=== PATIENT | male | born 1955 | race Caucasian/White ===

== ENCOUNTER → 2018-08-04 14:22 | Outpatient (CLI) | payer MEDICARE, SELFPAY ==
--- NOTE | 2018-08-04 14:28 | XR_ITS ---
XR chest 2V HISTORY: ITS.REASON: RALES RT SIDE ORDERING PHYSICIAN: BRONWYN Hinds PATIENT AGE: 63 years COMPARISON: 03/18/2017 FINDINGS: The cardiomediastinal silhouette and pulmonary vascularity are within normal limits. There is COPD with prominence of the interstitium. Increased markings are present in the right lower lobe suggesting superimposed pneumonia. No effusions. No acute bony anomalies. 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 IMPRESSION: COPD/emphysema with right lower lobe pneumonia
== END ==
PROVIDERS: PCP Family Medicine; Visit Provider Physician Assistant
DX: R09.89 Other specified symptoms and signs involving the circulatory and respiratory systems (principal)
CPT/HCPCS: 71046

== ENCOUNTER 2018-12-12 10:14 | Inpatient (IN) | payer MEDICARE, SELFPAY ==
[2018-12-12] VITALS (9 sets, daily range): BP systolic 101–129; BP diastolic 67–76; PULSE 72–120; RESP 17–26; TEMP 36.7–37.1; O2SAT 91–96; BMI 24.3
--- NOTE | 2018-12-12 10:20 | XR_ITS ---
XR chest 2V HISTORY: ITS.REASON: copd exacerbation ORDERING PHYSICIAN: Lynda Pratt MD PATIENT AGE: 63 years COMPARISON: 08/04/2018 FINDINGS: COPD with diffuse interstitial lung disease once again noted. There is a large right pleural effusion with consolidation in the right lower lobe. Some of the effusion is loculated laterally. No lobar consolidation evident on the left. There is mild cardiomegaly without failure. No acute bony findings. IMPRESSION: COPD with pulmonary fibrotic change with large right effusion and consolidation within the right lower lobe cannot exclude underlying mass. Follow-up is recommended
--- NOTE | 2018-12-12 10:28 | CT_ITS ---
CT abdomen pelvis wo/w con CLINICAL INDICATION: Hematuria, right-sided abdominal pain ITS.REASON: hematuria ORDERING PHYSICIAN: Lynda Pratt MD PATIENT AGE: 63 years COMPARISON: None TECHNIQUE: Axial images obtained with sagittal and coronal reformats. All CT scans at the facility use one or more dose reduction, viz: automated exposure control, ma/kV adjustment per patient size (including targeted exams where dose is matched to indication, i.e. head), or iterative reconstruction technique. PROCEDURE: Oral Contrast: None IV Contrast: 75 mL Omnipaque 350. FINDINGS: There is a large right-sided pleural effusion with consolidation of the right lower lobe. Please see chest CT report for further description. Axial images are obtained without and with contrast. The liver, spleen, adrenal glands, pancreas, and gallbladder have an unremarkable appearance. No renal or ureteral calculi. No hydronephrosis. No renal mass. There is mild thickening of the urinary bladder along the posterior aspect of the left. No pelvic mass or abnormal fluid collection is evident. No evidence of appendicitis or diverticulitis. There is diverticulosis of the descending and sigmoid colon There is mild wedging involving L1 which appears old. Postsurgical changes are present at L3 and L4 with interpedicular screws. IMPRESSION: 1. No renal or ureteral calculi. 2. There is mild thickening of the urinary bladder wall on the left posteriorly. While this could be due to nondistention, underlying epithelial lesion is also considered such as focal inflammatory change or bladder cancer. 3. Diverticulosis of the colon but no evidence of diverticulitis
--- NOTE | 2018-12-12 10:37 | HMH.PHAVTE ---
[facility] Pharmacy VTE Monitoring - Patient Demographics Admission date: 12/12/18 Report Date: 12/12/18 Time: 10:37 Allergies/Adverse Reactions: Patient Allergies codeine Allergy (Unknown, Verified 12/12/18 10:37) UNKNOWN - Prophylaxis VTE Prophylaxis Ordered?: Yes Types of VTE Prophylaxis: TEDS Knee High Location of Applied Device: Bilateral Lower Extremeties - VTE Diagnosis Confirmed Treatment or plan recommended: Continue Current Treatment
[2018-12-12 11:23] LABS: Basophils # 0.1 K/mm3 (0-0.2); Basophils % 0.4 % (0.1-2.0); Eosinophils # 0.1 K/mm3 (0.0-0.4); Eosinophils % 0.8 % (0.1-12.0); Hematocrit 41.7 % (42.0-52.0); Lymphocytes # 2.2 K/mm3 (0.7-4.5); Lymphocytes % 16.9 % (10-50); Mean Corpuscular HGB Conc 33.5 g/dL (31.8-35.4); Mean Corpuscular Hemoglobin 32.3 pg (27.0-31.2); Mean Corpuscular Volume 96.5 fl (80-94); Mean Platelet Volume 7.7 fl (7.4-10.4); Monocytes # 0.8 K/mm3 (0.1-1.0); Monocytes % 6.3 % (1.7-9.3); Neutrophils # 9.9 K/mm3 (1.8-7.8); Neutrophils % 75.7 % (37.0-80.0); Platelet Count 368 K/mm3 (142-424); Red Blood Count 4.32 M/mm3 (4.60-6.20); Red Cell Distribution Width 12.6 % (11.5-17.5)
[2018-12-12 11:39] LABS: Lactic Acid 1.9 mmol/L (0.4-2.0)
[2018-12-12 11:42] LABS: Alanine Aminotransferase 24 U/L (12-78); Albumin/Globulin Ratio 0.7 (1.1-1.8); Alkaline Phosphatase 124 U/L (46-116); Anion Gap 15.7 mEq/L (5-15); Aspartate Amino Transferase 24 U/L (15-37); Bilirubin,Total 0.8 mg/dL (0.2-1.0); Blood Urea Nitrogen 14 mg/dL (7-18); Calcium 8.4 mg/dL (8.5-10.1); Carbon Dioxide 25 mmol/L (21.0-32.0); Chloride 100 mmol/L (98-107); Creatinine Clearance Estimated 88 mL/min (50-200); Creatinine,Serum 0.76 mg/dL (0.70-1.30); Estimated Glomerular Filt Rate 103 ml/min (>60); GFR (African American) 125 ML/MIN (>60); Globulin 4.1 gm/dl (1.3-3.2); Glucose 92 mg/dL (74-106); Potassium 4.7 mmoL/L (3.5-5.1); Sodium 136 mmol/L (136-145); Total Protein,Serum 7.1 gm/dL (6.4-8.2)
--- NOTE | 2018-12-12 13:17 | CT_ITS ---
CT chest w con HISTORY: Right-sided chest pain, abnormal chest x-ray ITS.REASON: ABNORMAL R LUNG,HX OF PNEUMONIA ORDERING PHYSICIAN: Lynda Pratt MD PATIENT AGE: 63 years COMPARISON: 03/18/2017 TECHNIQUE: Axial images obtained following the administration of 75 mL of Omnipaque 350 . Sagittal, and coronal reformatted images are also generated and reviewed. All CT scans at the facility use one or more dose reduction, viz: automated exposure control, ma/kV adjustment per patient size (including targeted exams where dose is matched to indication, i.e. head), or iterative reconstruction technique. FINDINGS: There is a large right pleural effusion mainly located in the lower hemithorax but also with a loculated component laterally. There is diffuse consolidation of the right lower lobe. Moderate compressive atelectatic changes are present involving the right upper lobe. Cannot exclude the possibility of an underlying lung lesion based on these findings. There are centrilobular emphysematous changes with mild pulmonary fibrosis. Patchy infiltrate is present in the left lower lobe at the lung base. No evidence of aortic aneurysm or dissection. No evidence of central pulmonary embolus. There are postsurgical changes of the left shoulder. Increased density is present along the medial aspect of the right lung possibly related to pleural effusion. Follow-up suggested to exclude other causes of pleural thickening. IMPRESSION: 1. Large right pleural effusion with consolidation of the right upper, right middle, right lower lobe. There is some aeration of the right upper lobe. Cannot to underlying parenchymal lung lesion due to the above findings. There is some increased density along the medial aspect of the right lung posteriorly due to loculated effusion. 2. Centrilobular emphysema with pulmonary fibrosis
--- NOTE | 2018-12-12 14:10 | HMH.HP ---
*Admission Date: 12/12/18 <Leslye Martino 12/12/18 14:25> *Chief complaint: Shortness of breath <Leslye Martino 12/12/18 14:25> *History of present illness: Patient's oxygen saturation in office was 88-89% on RA and cory upto 91% on 2 L NC. <Lynda Pratt 12/12/18 15:53> Mr. Townsend is a 63-year-old male who presented to the office of [facility] after not feeling well for the past 2 weeks. 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 He was previously treated with 2 rounds of antibiotics for pneumonia after which he states he was never completely well. With the persistence shortness of breath he decided he better see his physician. With exam and assessment in the office O2 sats were 90 to 91% on room air. He was started on nasal oxygen. He denies fever, sore throat, rhinorrhea, headache and body aches. He describes his chest is being sore. He says he has had some heart palpitations. 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 Due to his failure with outpatient treatment and his hypoxia he was admitted to [facility] for further evaluation and treatment <Leslye Martino 12/12/18 14:25> [facility] History I have reviewed the patient's past medical history: Yes <Lynda Pratt 12/12/18 15:53> Medical History: Reports:: Arrhythmia, Atrial Fibrillation, Chronic Obstructive Pulmonary Disease (COPD), Gastroesophageal Reflux Disease(GERD) Denies:: Cancer, Diabetes Mellitus Type 1, Diabetes Mellitus Type 2, MRSA <Leslye Martino 12/12/18 14:25> *Have you ever received a pneumonia vaccine?: No <GunnerLeslye - 12/12/18 14:25> *Have you received a flu vaccine this season?: No <GunnerLeslye - 12/12/18 14:25> Other Medical History: Reports: Arthritis, Sinus Problems <GunnerLeslye - 12/12/18 14:25> Comment:: Kidney stones <Leslye Martino 12/12/18 14:25> Laterality Cases: Right: Carpal Tunnel Release, Bilateral: Arthroscopy Knee, Total Knee Replacement <GunnerLeslye 12/12/18 14:25> Other Surgeries: Yes: Appendectomy <GunnerLeslye 12/12/18 14:25> Amputation: No <GunnerLeslye 12/12/18 14:25> Fractures: No <GunnerLeslye 12/12/18 14:25> Comment: L4-L5 fusion 1987; back surgery 2011; left wrist surgery 2005 <GunnerLeslye 12/12/18 14:25> - *Social History Smoking Status: Current every day smoker <GunnerLeslye 12/12/18 14:25> # Packs/Day (cigarettes): 2 <GunnerLeslye 12/12/18 14:25> Alcohol Intake: never <GunnerLeslye 12/12/18 14:25> *Occupational Status:: disabled <GunnerLeslye 12/12/18 14:25> Housing: house <GunnerLeslye 12/12/18 14:25> Household Members: none <Leslye Martino 12/12/18 14:25> *Travel in the last 8 weeks: None <GunnerLeslye 12/12/18 14:25> - Psychiatric History Expresses thoughts of harming self/others: None <GunnerLeslye 12/12/18 14:25> Suicide Plan Description: No Plan <GunnerLeslye 12/12/18 14:25> Family Hx:: Diabetes, Stroke <MartinoLeslye 12/12/18 14:25> Comment: Heart disease <MartinoLeslye 12/12/18 14:25> Review of Systems - Constitutional Denies fever(s), Denies headache(s) <Martino,Leslye 12/12/18 14:25> - ENT Denies dizziness, Denies ear pain, Denies sore throat <Martino,Leslye 12/12/18 14:25> - *Cardiovascular Reports chest pain, Reports shortness of breath, Reports irregular heart rhythm, Denies leg swelling <Martino,Leslye 12/12/18 14:25> - *Respiratory Reports cough, Reports shortness of breath, Reports pain with cough, Denies coughing up blood <Leslye Martino 12/12/18 14:32> - *Gastrointestinal Reports abdominal pain, Denies nausea, Denies vomiting <Leslye Martino 12/12/18 14:25> Comments: Abdominal pain radiating from the right flank <Leslye Martino 12/12/18 14:25> - *Genitourinary Reports painful urination, Reports blood in urine, Denies difficulty urinating <Lester Martino
--- NOTE | 2018-12-12 14:14 | P.HP_ITS ---
*Admission Date: 12/12/18 <Leslye Martino 12/12/18 14:25> *Chief complaint: Shortness of breath <Leslye Martino 12/12/18 14:25> *History of present illness: Patient's oxygen saturation in office was 88-89% on RA and cory upto 91% on 2 L NC. <Lynda Pratt 12/12/18 15:53> Mr. Townsend is a 63-year-old male who presented to the office of [facility] after not feeling well for the past 2 weeks. 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 He was previously treated with 2 rounds of antibiotics for pneumonia after which he states he was never completely well. With the persistence shortness of breath he decided he better see his physician. With exam and assessment in the office O2 sats were 90 to 91% on room air. He was started on nasal oxygen. He denies fever, sore throat, rhinorrhea, headache and body aches. He describes his chest is being sore. He says he has had some heart palpitations. 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 Due to his failure with outpatient treatment and his hypoxia he was admitted to [facility] for further evaluation and treatment <Leslye Martino 12/12/18 14:25> [facility] History I have reviewed the patient's past medical history: Yes <Lynda Pratt 12/12/18 15:53> Medical History: Reports:: Arrhythmia, Atrial Fibrillation, Chronic Obstructive Pulmonary Disease (COPD), Gastroesophageal Reflux Disease(GERD) Denies:: Cancer, Diabetes Mellitus Type 1, Diabetes Mellitus Type 2, MRSA <Leslye Martino 12/12/18 14:25> *Have you ever received a pneumonia vaccine?: No <GunnerLeslye - 12/12/18 14:25> *Have you received a flu vaccine this season?: No <GunnerLeslye - 12/12/18 14:25> Other Medical History: Reports: Arthritis, Sinus Problems <GunnerLeslye - 12/12/18 14:25> Comment:: Kidney stones <Lesyle Martino 12/12/18 14:25> Laterality Cases: Right: Carpal Tunnel Release, Bilateral: Arthroscopy Knee, Total Knee Replacement <GunnerLeslye 12/12/18 14:25> Other Surgeries: Yes: Appendectomy <GunnerLeslye 12/12/18 14:25> Amputation: No <GunnerLeslye 12/12/18 14:25> Fractures: No <GunnerLeslye 12/12/18 14:25> Comment: L4-L5 fusion 1987; back surgery 2011; left wrist surgery 2005 <GunnerLeslye 12/12/18 14:25> - *Social History Smoking Status: Current every day smoker <GunnerLeslye 12/12/18 14:25> # Packs/Day (cigarettes): 2 <GunnerLeslye 12/12/18 14:25> Alcohol Intake: never <GunnerLeslye 12/12/18 14:25> *Occupational Status:: disabled <GunnerLeslye 12/12/18 14:25> Housing: house <GunnerLeslye 12/12/18 14:25> Household Members: none <Leslye Martino 12/12/18 14:25> *Travel in the last 8 weeks: None <GunnerLeslye 12/12/18 14:25> - Psychiatric History Expresses thoughts of harming self/others: None <GunnerLeslye 12/12/18 14:25> Suicide Plan Description: No Plan <GunnerLeslye 12/12/18 14:25> Family Hx:: Diabetes, Stroke <MartinoLeslye 12/12/18 14:25> Comment: Heart disease <MartinoLeslye 12/12/18 14:25> Review of Systems - Constitutional Denies fever(s), Denies headache(s) <Martino,Leslye 12/12/18 14:25> - ENT Denies dizziness, Denies ear pain, Denies sore throat <Martino,Leslye 12/12/18 14:25> - *Cardiovascular Reports chest pain, Reports shortness of breath, Reports irregular heart rhythm, Denies leg swelling <Martino,Leslye 12/12/18 14:25> - *Respiratory Reports cough, Reports shortness of breath, Reports pain with cough, Denies coughing up blood <Leslye Martino - 12/12/18 14:32> -
--- NOTE | 2018-12-12 16:07 | PC.NURSE ---
cardizem drip increased to 10mg/hr to obtain hr below 100. heart rate currently running low 100s to 114 in an irregular rhythm( afib).
--- NOTE | 2018-12-12 18:42 | PC.NURSE ---
All care provided this shift by Milagros Collins RN was directly supervised by this video game script writer.
--- NOTE | 2018-12-12 19:12 | PC.NURSE ---
report given to marta
[2018-12-13] VITALS (16 sets, daily range): BP systolic 90–133; BP diastolic 46–73; PULSE 57–98; RESP 20–23; TEMP 36.6–36.8; O2SAT 90–99
--- NOTE | 2018-12-13 02:34 | PC.NURSE ---
He has been resting in be. Received PRN pain medication for back pain. He is NPO for pleurocentesis. 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 Reports his last BM on 12/12. He denies SOA. He continues on 2.5LPM n/c.
[2018-12-13 06:16] LABS: Hematocrit 36.9 % (42.0-52.0); Red Blood Count 3.85 M/mm3 (4.60-6.20); White Blood Count 13.8 K/mm3 (4.8-10.8)
[2018-12-13 06:17] LABS: Basophils % 0.1 % (0.1-2.0); Lymphocytes # 0.8 K/mm3 (0.7-4.5); Mean Corpuscular HGB Conc 33.4 g/dL (31.8-35.4); Mean Corpuscular Volume 95.9 fl (80-94); Mean Platelet Volume 7.9 fl (7.4-10.4); Monocytes # 0.5 K/mm3 (0.1-1.0); Monocytes % 3.7 % (1.7-9.3); Neutrophils # 12.3 K/mm3 (1.8-7.8); Neutrophils % 89.5 % (37.0-80.0); Platelet Count 299 K/mm3 (142-424); Red Cell Distribution Width 12.7 % (11.5-17.5)
[2018-12-13 06:18] LABS: Hemoglobin 12.3 g/dL (14.1-18.0); MANUAL DIFFERENTIAL MANUAL DIFFERENTIAL (MANUAL DIFF)
[2018-12-13 08:21] LABS: Lymphocytes % 5 % (10-50); Neutrophils % 95 % (42-76); Platelet Estimate Normal; RBC Morphology Normal; Total Cells Counted 100
--- NOTE | 2018-12-13 09:11 | HMH.ACPN2 ---
<Leslye Martino - Last Filed: 12/13/18 09:11> Internal Medicine - PN: Subj *Date: 12/13/18 *Time: 09:11 Interval history: Patient has normal sleep last night. Now has right flank more chest discomfort. He is anxious. Mouth is dry and he would like something to drink. He remains n.p.o. for procedure this morning. He remains on a Cardizem drip for atrial fibrillation. He feels his breathing is stable. Exam Vital signs and Labs for Last 24 Hours: Temp Pulse Resp BP Pulse Ox 97.8 F 74 20 100/55 L 96 12/13/18 08:00 12/13/18 08:12 12/13/18 08:12 12/13/18 08:00 12/13/18 08:12 Laboratory Results - last 24 hr 12/12/18 11:10: WBC 13.0 H, RBC 4.32 L, Hgb 14.0 L, Hct 41.7 L, MCV 96.5 H, MCH 32.3 H, MCHC 33.5, RDW 12.6, Plt Count 368, MPV 7.7, Neut % (Auto) 75.7, Lymph % (Auto) 16.9, [place] % (Auto) 6.3, Eos % (Auto) 0.8, Baso % (Auto) 0.4, Neut # (Auto) 9.9 H, Lymph # (Auto) 2.2, [place] # (Auto) 0.8, Eos # (Auto) 0.1, Baso # (Auto) 0.1 12/12/18 11:10: Sodium 136, Potassium 4.7, Chloride 100, Carbon Dioxide 25, Anion Gap 15.7 H, BUN 14, Creatinine 0.76, Estimated Creat Clear 88, Estimated GFR 103, Est GFR ( Amer) 125, Glucose 92, Calcium 8.4 L, Magnesium 2.0, Total Bilirubin 0.8, AST 24, ALT 24, Alkaline Phosphatase 124 H, Total Protein 7.1, Albumin 3.0 L, Globulin 4.1 H, Albumin/Globulin Ratio 0.7 L 12/12/18 11:10: Lactate 1.9 12/13/18 05:32: WBC 13.8 H, RBC 3.85 L, Hgb 12.3 L D, Hct 36.9 L, MCV 95.9 H, MCH 32.0 H, MCHC 33.4, RDW 12.7, Plt Count 299, MPV 7.9, Neut % (Auto) 89.5 H, Lymph % (Auto) 6.0 L, [place] % (Auto) 3.7, Eos % (Auto) 0.0 L, Baso % (Auto) 0.1, Neut # (Auto) 12.3 H, Lymph # (Auto) 0.8, [place] # (Auto) 0.5, Eos # (Auto) 0.0, Baso # (Auto) 0.0, Total Counted 100, Neutrophils % (Manual) 95 H, Lymphocytes % (Manual) 5 L, Platelet Estimate Normal, RBC Morphology Normal I & O for Last 24 hours: Intake & Output 12/10/18 12/11/18 12/12/18 12/13/18 11:59 11:59 11:59 11:59 Intake Total 3234 / 3234 Output Total 350 / 350 Balance 2884 / 2884 Weight 184 lb Microbiology Reports for the Last 24 Hours: Microbiology 12/12/18 11:20 Sputum - Expectorated Sputum Gram Stain - Final 12/12/18 11:20 Sputum - Expectorated Sputum Sputum Culture - Preliminary Radiology Reports for the Last 24 Hours: Chest x-ray 12/12/2018 IMPRESSION: COPD with pulmonary fibrotic change with large right effusion and consolidation within the right lower lobe cannot exclude underlying mass. Follow-up is recommended CT abdomen pelvis 12/12/2018 IMPRESSION: 1. No renal or ureteral calculi. 2. There is mild thickening of the urinary bladder wall on the left posteriorly. While this could be due to nondistention, underlying epithelial lesion is also considered such as focal inflammatory change or bladder cancer. 3. Diverticulosis of the colon but no evidence of diverticulitis CT of chest 12/12/2018 IMPRESSION: 1. Large right pleural effusion with consolidation of the right upper, right middle, right lower lobe. There is some aeration of the right upper lobe. Cannot to underlying parenchymal lung lesion due to the above findings. There is some increased density along the medial aspect of the right lung posteriorly due to loculated effusion. 2. Centrilobular emphysema with pulmonary fibrosis - Constitutional no acute distress Comments: Seems anxious - *Routine Respiratory Exam Comments: Diminished breath sounds on the right - *Routine Cardiovascular Exam Present: irregularly irregular Comments: Monitor showing atrial fibrillation with a controlled ventricular response - *Routine Abdominal Exam Present: soft, normoactive bowel sounds. Absent: tenderness - *Routine Extremities Exam Absent: edema - *Routine Neurological Exam Present: alert, oriented X3 Assessment and Plan (1) Acute respiratory failure Current visit: Yes Status: Acute Category: Medical Code(s): J96.00 - Acute respi
--- NOTE | 2018-12-13 09:14 | P.PN_ITS ---
<Leslye Martino - Last Filed: 12/13/18 09:11> Internal Medicine - PN: Subj *Date: 12/13/18 *Time: 09:11 Interval history: Patient has normal sleep last night. Now has right flank more chest discomfort. He is anxious. Mouth is dry and he would like something to drink. He remains n.p.o. for procedure this morning. He remains on a Cardizem drip for atrial fibrillation. He feels his breathing is stable. Exam Vital signs and Labs for Last 24 Hours: Temp Pulse Resp BP Pulse Ox 97.8 F 74 20 100/55 L 96 12/13/18 08:00 12/13/18 08:12 12/13/18 08:12 12/13/18 08:00 12/13/18 08:12 Laboratory Results - last 24 hr 12/12/18 11:10: WBC 13.0 H, RBC 4.32 L, Hgb 14.0 L, Hct 41.7 L, MCV 96.5 H, MCH 32.3 H, MCHC 33.5, RDW 12.6, Plt Count 368, MPV 7.7, Neut % (Auto) 75.7, Lymph % (Auto) 16.9, [place] % (Auto) 6.3, Eos % (Auto) 0.8, Baso % (Auto) 0.4, Neut # (Auto) 9.9 H, Lymph # (Auto) 2.2, [place] # (Auto) 0.8, Eos # (Auto) 0.1, Baso # (Auto) 0.1 12/12/18 11:10: Sodium 136, Potassium 4.7, Chloride 100, Carbon Dioxide 25, Anion Gap 15.7 H, BUN 14, Creatinine 0.76, Estimated Creat Clear 88, Estimated GFR 103, Est GFR ( Amer) 125, Glucose 92, Calcium 8.4 L, Magnesium 2.0, Total Bilirubin 0.8, AST 24, ALT 24, Alkaline Phosphatase 124 H, Total Protein 7.1, Albumin 3.0 L, Globulin 4.1 H, Albumin/Globulin Ratio 0.7 L 12/12/18 11:10: Lactate 1.9 12/13/18 05:32: WBC 13.8 H, RBC 3.85 L, Hgb 12.3 L D, Hct 36.9 L, MCV 95.9 H, MCH 32.0 H, MCHC 33.4, RDW 12.7, Plt Count 299, MPV 7.9, Neut % (Auto) 89.5 H, Lymph % (Auto) 6.0 L, [place] % (Auto) 3.7, Eos % (Auto) 0.0 L, Baso % (Auto) 0.1, Neut # (Auto) 12.3 H, Lymph # (Auto) 0.8, [place] # (Auto) 0.5, Eos # (Auto) 0.0, Baso # (Auto) 0.0, Total Counted 100, Neutrophils % (Manual) 95 H, Lymphocytes % (Manual) 5 L, Platelet Estimate Normal, RBC Morphology Normal I & O for Last 24 hours: Intake & Output 12/10/18 12/11/18 12/12/18 12/13/18 11:59 11:59 11:59 11:59 Intake Total 3234 / 3234 Output Total 350 / 350 Balance 2884 / 2884 Weight 184 lb Microbiology Reports for the Last 24 Hours: Microbiology 12/12/18 11:20 Sputum - Expectorated Sputum Gram Stain - Final 12/12/18 11:20 Sputum - Expectorated Sputum Sputum Culture - Preliminary Radiology Reports for the Last 24 Hours: Chest x-ray 12/12/2018 IMPRESSION: COPD with pulmonary fibrotic change with large right effusion and consolidation within the right lower lobe cannot exclude underlying mass. Follow-up is recommended CT abdomen pelvis 12/12/2018 IMPRESSION: 1. No renal or ureteral calculi. 2. There is mild thickening of the urinary bladder wall on the left posteriorly. While this could be due to nondistention, underlying epithelial lesion is also considered such as focal inflammatory change or bladder cancer. 3. Diverticulosis of the colon but no evidence of diverticulitis CT of chest 12/12/2018 IMPRESSION: 1. Large right pleural effusion with consolidation of the right upper, right middle, right lower lobe. There is some aeration of the right upper lobe. Cannot to underlying parenchymal lung lesion due to the above findings. There is some increased density along the medial aspect of the right lung posteriorly due to loculated effusion. 2. Centrilobular emphysema with pulmonary fibrosis - Constitutional no acute distress Comments: Seems anxious - *Routine Re
--- NOTE | 2018-12-13 09:15 | PC.NURSE ---
Pt transferred off unit via wheelchair to radiology for procedure.
--- NOTE | 2018-12-13 10:00 | US_ITS ---
US thoracentesis HISTORY: Right pleural effusion, trouble breathing ITS.REASON: right pleural effusion ORDERING PHYSICIAN: Lynda Pratt MD PATIENT AGE: 63 years Comparison: None PROCEDURE: Following obtaining informed consent and after appropriate Time out, under aseptic conditions and local anesthesia with 1% buffered lidocaine using sonographic guidance a 4 Czech one-step catheter was inserted into the right posterior axillary line in the lower chest. Approximately 3500 cc of blood-tinged fluid was drained. The patient tolerated the procedure well and left the radiology suite in stable condition. Post procedure radiograph showed no evidence of pneumothorax IMPRESSION: Successful sonographic guided thoracentesis without complication
[2018-12-13 10:16] LABS: Appearance,Body Fld. Cloudy; Source, Body Fld. Pleural Fluid; Volume,Body Fld. 59 mL
--- NOTE | 2018-12-13 10:29 | XR_ITS ---
XR chest 2V HISTORY: Shortness of breath, follow-up thoracentesis ITS.REASON: S/P follow-up thoracentesis ORDERING PHYSICIAN: Lynda Pratt MD PATIENT AGE: 63 years COMPARISON: 12/12/2018 FINDINGS: Status post right-sided thoracentesis. There is been marked interval decrease in size of the right-sided pleural effusion with a small residual effusion persisting. Consolidation is present in the right lower lobe consistent with pneumonia. There is mild thickening of the major fissure and minor fissure on the right. There is COPD with chronic interstitial changes. There is no evidence of pneumothorax. IMPRESSION: 1. No evidence of pneumothorax. 2. Decrease in size right pleural effusion with right lower lobe pneumonia and diffuse interstitial lung disease
[2018-12-13 12:12] LABS: Mononuclear WBCs,Body Fluid 98 %; Polynuclear WBC,Body Fluid 2 %; RBC,Body Fluid 21 cells/uL (< 10 X 10^3); TNC,Body Fluid 1467 cells/uL (< 1000)
--- NOTE | 2018-12-13 13:00 | XR_ITS ---
XR chest 2V HISTORY: Follow-up thoracentesis ORDERING PHYSICIAN: Lynda Pratt MD PATIENT AGE: 63 years COMPARISON: None FINDINGS: There is cardiomegaly with pulmonary venous congestion suggesting CHF which has developed since the prior study of the same day. Some of this could be related to the decreased inspiratory effort and motion. No evidence of pneumothorax. There is consolidation in the right lower lobe and thickening of the major and minor fissure on the right which also appears more prominent but may be due to motion artifact. IMPRESSION: 1. No evidence of pneumothorax. 2. CHF with interstitial lung disease. 3. Right lower lobe pneumonia with small effusion probably unchanged given the difference in technique
--- NOTE | 2018-12-13 13:04 | HMH.CONS ---
*Admission Date: 12/12/18 *Chief complaint: I got pneumonia. *History of present illness: Mr. Townsend is a 63-year-old man who has a past history of atrial fibrillation and multiple surgical interventions, generally for orthopedic problems who had been in his usual state of health until a couple of months ago when he began to feel bad. He characterizes this is feeling weak and somewhat breathless, having feverish feelings and chills and sweats and coughing more than usual. He began to expectorate discolored sputum and was evaluated in the office where pneumonia was diagnosed. He was given levofloxacin and initially without much benefit and then a azithromycin and then I began to feel a little better. About a week ago, symptoms recurred and were much worse. He had feverish feelings, weakness, increased cough and much more breathlessness on exertion. He delayed coming to the office until last Wednesday and was ultimately admitted here with pneumonia and a large right pleural effusion. He underwent about a 4 L thoracentesis this morning and feels much better. Mr. Townsend began smoking at the age of 13 and smokes between 1 and 1-1/2 packages of cigarettes a day. He has a daily cough which is generally not productive and has not experienced shortness of breath on exertion. He has never had pneumonia and has never been diagnosed with any chronic lung disease. With this illness, he has had no significant pleuritic chest pain and no hemoptysis. His appetite fell off dramatically last week but he does not believe he is lost any weight over the last couple of months. [facility] History Medical History: Reports:: Arrhythmia, Atrial Fibrillation, Chronic Obstructive Pulmonary Disease (COPD), Gastroesophageal Reflux Disease(GERD) Denies:: Cancer, Diabetes Mellitus Type 1, Diabetes Mellitus Type 2, MRSA *Have you ever received a pneumonia vaccine?: No *Have you received a flu vaccine this season?: No Other Medical History: Reports: Arthritis, Sinus Problems Laterality Cases: Right: Carpal Tunnel Release, Bilateral: Arthroscopy Knee, Total Knee Replacement Other Surgeries: Yes: Appendectomy Amputation: No Fractures: No - *Social History Smoking Status: Current every day smoker # Packs/Day (cigarettes): 2 Alcohol Intake: never *Occupational Status:: disabled Housing: house Household Members: none *Travel in the last 8 weeks: None Comment: 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 She is in good health. He has 2 grown children and 2 healthy grandchildren. 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 He has no other hobbies. - Psychiatric History Expresses thoughts of harming self/others: None Suicide Plan Description: No Plan Family Hx:: Diabetes, Stroke Comment: His brother had chronic obstructive pulmonary disease. There is no family history of cancer. Review of Systems - Review of Systems Review of systems:: pertinent systems reviewed and negative unless documented below Mr. Townsend wears bifocals and has fairly good vision. He has upper dentures. He has no history of ischemic heart disease and atrial fibrillation appears to be under good control. He has no gastrointestinal complaints except for significant GERD which occurs pretty much every day. He drinks at least one pot of coffee and 2-3 Pepsi's daily and generally goes right to bed after eating dinner. He has had no significant change in his appetite or weight over the last couple of years except for this illness. He has nocturia x2. He has diffuse joint pains, especially of the feet and hands and some low back pain. He has a history of psoriasis but that has not been a problem for a long time. The rest of a 14 point review of systems is negative. - *Neurologic Denies abnormal walking, Denies abnormal speech, Denies behavioral castillo
--- NOTE | 2018-12-13 13:07 | P.CONS_ITS ---
*Admission Date: 12/12/18 *Chief complaint: I got pneumonia. *History of present illness: Mr. Townsend is a 63-year-old man who has a past history of atrial fibrillation and multiple surgical interventions, generally for orthopedic problems who had been in his usual state of health until a couple of months ago when he began to feel bad. He characterizes this is feeling weak and somewhat breathless, having feverish feelings and chills and sweats and coughing more than usual. He began to expectorate discolored sputum and was evaluated in the office where pneumonia was diagnosed. He was given levofloxacin and initially without much benefit and then a azithromycin and then I began to feel a little better. About a week ago, symptoms recurred and were much worse. He had feverish feelings, weakness, increased cough and much more breathlessness on exertion. He delayed coming to the office until last Wednesday and was ultimately admitted here with pneumonia and a large right pleural effusion. He underwent about a 4 L thoracentesis this morning and feels much better. Mr. Townsend began smoking at the age of 13 and smokes between 1 and 1-1/2 packages of cigarettes a day. He has a daily cough which is generally not productive and has not experienced shortness of breath on exertion. He has never had pneumonia and has never been diagnosed with any chronic lung disease. With this illness, he has had no significant pleuritic chest pain and no hemoptysis. His appetite fell off dramatically last week but he does not believe he is lost any weight over the last couple of months. [facility] History Medical History: Reports:: Arrhythmia, Atrial Fibrillation, Chronic Obstructive Pulmonary Disease (COPD), Gastroesophageal Reflux Disease(GERD) Denies:: Cancer, Diabetes Mellitus Type 1, Diabetes Mellitus Type 2, MRSA *Have you ever received a pneumonia vaccine?: No *Have you received a flu vaccine this season?: No Other Medical History: Reports: Arthritis, Sinus Problems Laterality Cases: Right: Carpal Tunnel Release, Bilateral: Arthroscopy Knee, Total Knee Replacement Other Surgeries: Yes: Appendectomy Amputation: No Fractures: No - *Social History Smoking Status: Current every day smoker # Packs/Day (cigarettes): 2 Alcohol Intake: never *Occupational Status:: disabled Housing: house Household Members: none *Travel in the last 8 weeks: None Comment: 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 She is in good health. He has 2 grown children and 2 healthy grandchildren. 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 He has no other hobbies. - Psychiatric History Expresses thoughts of harming self/others: None Suicide Plan Description: No Plan Family Hx:: Diabetes, Stroke Comment: His brother had chronic obstructive pulmonary disease. There is no family history of cancer. Review of Systems - Review of Systems Review of systems:: pertinent systems reviewed and negative unless documented below Mr. Townsend wears bifocals and has fairly good vision. He has upper dentures. He has no history of ischemic heart disease and atrial fibrillation appears to be under good control. He has no gastrointestinal complaints except for significant GERD which occurs pretty much every day. He drinks at least one pot of coffee and 2-3 Pepsi's daily and generally goes right to bed after eating dinner. He has had no significant change in his appetite or weight over the last couple of years except for this illness. He has nocturia x2. He has diffuse joint pains, especiall
--- NOTE | 2018-12-13 17:04 | PC.NURSE ---
Spoke with Dr Henriquez on floor regarding need for negative pressure room. Dr Henriquez stated that would be a good idea and order a sputum for AFB. Pt to be transferred to a negative pressure room.
--- NOTE | 2018-12-13 17:22 | PC.NURSE ---
Pt instructed on airborne precautions. Pt verbalizes understanding.
--- NOTE | 2018-12-13 19:21 | HMH.GSCON ---
*Admission Date: 12/12/18 *History of present illness: Mr. Townsend is a 63-year-old man who has a past history of atrial fibrillation and multiple surgical interventions, generally for orthopedic problems who had been in his usual state of health until a couple of months ago when he began to feel bad. He characterizes this is feeling weak and somewhat breathless, having feverish feelings and chills and sweats and coughing more than usual. He began to expectorate discolored sputum and was evaluated in the office where pneumonia was diagnosed. He was given levofloxacin and initially without much benefit and then a azithromycin and then I began to feel a little better. About a week ago, symptoms recurred and were much worse. He had feverish feelings, weakness, increased cough and much more breathlessness on exertion. He delayed coming to the office until last Wednesday and was ultimately admitted here with pneumonia and a large right pleural effusion. He underwent about a 4 L thoracentesis this morning and feels much better. Mr. Townsend began smoking at the age of 13 and smokes between 1 and 1-1/2 packages of cigarettes a day. He has a daily cough which is generally not productive and has not experienced shortness of breath on exertion. He has never had pneumonia and has never been diagnosed with any chronic lung disease. With this illness, he has had no significant pleuritic chest pain and no hemoptysis. His appetite fell off dramatically last week but he does not believe he is lost any weight over the last couple of months. I have been asked to see this gentleman context of the above discussion. On his CT scan he had thickened area of the left lateral bladder wall. No gross tumor was noted. He does admit having some episodes of gross hematuria over the last several months. Had thoracentesis earlier today and the results are pending. I suggest he follow-up with me in 1 week and we will address his bladder and clear arrange for cystoscopy with possible bladder biopsy. Review of Systems - *Neurologic Denies abnormal walking, Denies abnormal speech, Denies behavioral changes, Denies dizziness, Denies frequent falls, Denies headache(s) [facility] History Medical History: Reports:: Arrhythmia, Atrial Fibrillation, Chronic Obstructive Pulmonary Disease (COPD), Gastroesophageal Reflux Disease(GERD) Denies:: Cancer, Diabetes Mellitus Type 1, Diabetes Mellitus Type 2, MRSA *Have you ever received a pneumonia vaccine?: No *Have you received a flu vaccine this season?: No Other Medical History: Reports: Arthritis, Sinus Problems Laterality Cases: Right: Carpal Tunnel Release, Bilateral: Arthroscopy Knee, Total Knee Replacement Other Surgeries: Yes: Appendectomy Amputation: No Fractures: No - *Social History Smoking Status: Current every day smoker # Packs/Day (cigarettes): 2 Alcohol Intake: never *Occupational Status:: disabled Housing: house Household Members: none *Travel in the last 8 weeks: None - Psychiatric History Expresses thoughts of harming self/others: None Suicide Plan Description: No Plan Family Hx:: Diabetes, Stroke Meds Home Medications Medication Instructions Recorded Confirmed Type Metoprolol Succinate [Toprol XL 25 mg PO DAILY 12/12/18 12/12/18 History 25mg tablet] Allergies Allergy/AdvReac Type Severity Reaction Status Date / Time codeine Allergy Unknown UNKNOWN Verified 12/12/18 10:37 Exam Vital signs and Labs for Last 24 Hours: Temp Pulse Resp BP Pulse Ox 98.3 F 91 H 23 121/65 91 L 12/13/18 16:00 12/13/18 18:35 12/13/18 16:00 12/13/18 16:00 12/13/18 18:35 Laboratory Results - last 24 hr 12/13/18 05:32: WBC 13.8 H, RBC 3.85 L, Hgb 12.3 L D, Hct 36.9 L, MCV 95.9 H, MCH 32.0 H, MCHC 33.4, RDW 12.7, Plt Count 299, MPV 7.9, Neut % (Auto) 89.5 H, Lymph % (Auto) 6.0 L, [place] % (Auto) 3.7, Eos % (Auto) 0.0 L, Baso % (Auto) 0.1, Neut # (Auto) 12.3 H, Lymph # (Auto) 0.8, [place] #
[2018-12-14] VITALS (12 sets, daily range): BP systolic 108–121; BP diastolic 69–80; PULSE 70–91; RESP 16–20; TEMP 36.6–36.9; O2SAT 90–97; BMI 23.9
--- NOTE | 2018-12-14 04:36 | PC.NURSE ---
PT RESTED WELL. CONT. IN DROPLET PRECAUTION. PT AMBULATES INDEPENDENTLY IN ROOM TO BATHROOM, TOLERATES WELL. PT URINE IS DARK, AND CLEAR IN COLOR. PT HAS BEEN AFEBRILE. C/O RIGHT LOWER BACK PAIN X2 THIS SHIFT, PRN MEDICATION ADMIN. VSS. WILL CONT. TO MONITOR.
[2018-12-14 06:54] LABS: Hematocrit 38.2 % (42.0-52.0); Hemoglobin 12.2 g/dL (14.1-18.0); Lymphocytes # 1.1 K/mm3 (0.7-4.5); Lymphocytes % 5.3 % (10-50); Mean Corpuscular Hemoglobin 31.6 pg (27.0-31.2); Mean Corpuscular Volume 98.7 fl (80-94); Mean Platelet Volume 7.8 fl (7.4-10.4); Monocytes # 0.9 K/mm3 (0.1-1.0); Monocytes % 4.6 % (1.7-9.3); Neutrophils # 18.1 K/mm3 (1.8-7.8); Neutrophils % 89.9 % (37.0-80.0); Platelet Count 321 K/mm3 (142-424); Red Blood Count 3.87 M/mm3 (4.60-6.20); Red Cell Distribution Width 12.9 % (11.5-17.5); White Blood Count 20.1 K/mm3 (4.8-10.8)
[2018-12-14 07:00] LABS: MANUAL DIFFERENTIAL MANUAL DIFFERENTIAL (MANUAL DIFF)
[2018-12-14 07:13] LABS: Lactate Dehydrogenase 201 U/L (82-234); Total Protein,Serum 6.4 gm/dL (6.4-8.2)
[2018-12-14 08:09] LABS: Lymphocytes % 6 % (10-50); Monocytes % 4 % (2-9); Neutrophils % 86 % (42-76); Platelet Estimate Normal; Total Cells Counted 100
--- NOTE | 2018-12-14 08:30 | HMH.ACPN2 ---
<Leslye Martino - Last Filed: 12/14/18 08:45> Internal Medicine - PN: Subj *Date: 12/14/18 *Time: 08:45 Interval history: Patient states he feels like a new man. Wondering when he can go home. He states he has no right flank pain now. His back has been bothering him. He admits to several back surgeries. He states he is used to being up and very active. He denies any chest pain and feels his breathing is better although he remains on oxygen at 2.5 L/min.. He is eating better as well. He has been out of bed without difficulty. Patient states his urine has been clear. Urology and pulmonary consults note reviewed and appreciated Exam Vital signs and Labs for Last 24 Hours: Temp Pulse Resp BP Pulse Ox 97.9 F 87 20 121/72 94 L 12/14/18 03:54 12/14/18 06:21 12/14/18 03:54 12/14/18 03:54 12/14/18 06:21 Laboratory Results - last 24 hr 12/13/18 09:50: Fluid Source Pleural fluid, Fluid Volume 59, Fluid Appearance Cloudy, Fluid RBC (Auto) 21, Fld Tot Nucleated Cell 1467, Fld Polynuclear WBCs % 2, Fld Mononuclear WBCs % 98 12/14/18 06:30: WBC 20.1 H* D, RBC 3.87 L, Hgb 12.2 L, Hct 38.2 L, MCV 98.7 H, MCH 31.6 H, MCHC 32.0, RDW 12.9, Plt Count 321, MPV 7.8, Neut % (Auto) 89.9 H, Lymph % (Auto) 5.3 L, [place] % (Auto) 4.6, Eos % (Auto) 0.0 L, Baso % (Auto) 0.0 L, Neut # (Auto) 18.1 H, Lymph # (Auto) 1.1, [place] # (Auto) 0.9, Eos # (Auto) 0.0, Baso # (Auto) 0.0, Total Counted 100, Neutrophils % (Manual) 86 H, Band Neutrophils % 4.0, Lymphocytes % (Manual) 6 L, Monocytes % (Manual) 4, Platelet Estimate Normal 12/14/18 06:30: Lactate Dehydrogenase 201, Total Protein 6.4 I & O for Last 24 hours: Intake & Output 12/11/18 12/12/18 12/13/18 12/14/18 11:59 11:59 11:59 11:59 Intake Total 3234 / 3234 780 / 780 Output Total 350 / 350 650 / 650 Balance 2884 / 2884 130 / 130 Weight 184 lb 180 lb 11.2 oz Microbiology Reports for the Last 24 Hours: Microbiology 12/12/18 11:20 Sputum - Expectorated Sputum Gram Stain - Final 12/12/18 11:20 Sputum - Expectorated Sputum Sputum Culture - Final Normal Respiratory Joanne 12/13/18 09:50 Pleural Fluid - Pleura,Rt Lung Gram Stain - Final Radiology Reports for the Last 24 Hours: Repeat chest x-ray 12/13/2018 IMPRESSION: 1. No evidence of pneumothorax. 2. CHF with interstitial lung disease. 3. Right lower lobe pneumonia with small effusion probably unchanged given the difference in technique - Constitutional no acute distress Comments: Appears comfortable - *Routine Respiratory Exam Comments: Much improved breath sounds on the right with crackles throughout. - *Routine Cardiovascular Exam Comments: Irregular rhythm - *Routine Abdominal Exam Present: soft, normoactive bowel sounds. Absent: tenderness - *Routine Extremities Exam Absent: edema - *Routine Neurological Exam Present: alert, oriented X3 Assessment and Plan (1) Acute respiratory failure Current visit: Yes Status: Acute Category: Medical Code(s): J96.00 - Acute respiratory failure, unspecified whether with hypoxia or hypercapnia (2) Pneumonia Current visit: Yes Status: Acute Category: Medical Code(s): J18.9 - Pneumonia, unspecified organism (3) Hypoxia Current visit: Yes Status: Acute Category: Medical Code(s): R09.02 - Hypoxemia (4) Atrial fibrillation Current visit: Yes Status: Acute Category: Medical Code(s): I48.91 - Unspecified atrial fibrillation (5) Right flank pain Current visit: Yes Status: Acute Category: Medical Code(s): R10.9 - Unspecified abdominal pain (6) Tobacco use disorder Current visit: Yes Status: Chronic Category: Medical Code(s): F17.200 - Nicotine dependence, unspecified, uncomplicated (7) Pleural effusion, right Current visit: Yes Status: Acute Category: Medical Code(s): J90 - Pleural effusion, not elsewhere classified (8) Hematuria Current visit:
--- NOTE | 2018-12-14 08:33 | P.PN_ITS ---
<Leslye Martino - Last Filed: 12/14/18 08:45> Internal Medicine - PN: Subj *Date: 12/14/18 *Time: 08:45 Interval history: Patient states he feels like a new man. Wondering when he can go home. He states he has no right flank pain now. His back has been bothering him. He admits to several back surgeries. He states he is used to being up and very active. He denies any chest pain and feels his breathing is better although he remains on oxygen at 2.5 L/min.. He is eating better as well. He has been out of bed without difficulty. Patient states his urine has been clear. Urology and pulmonary consults note reviewed and appreciated Exam Vital signs and Labs for Last 24 Hours: Temp Pulse Resp BP Pulse Ox 97.9 F 87 20 121/72 94 L 12/14/18 03:54 12/14/18 06:21 12/14/18 03:54 12/14/18 03:54 12/14/18 06:21 Laboratory Results - last 24 hr 12/13/18 09:50: Fluid Source Pleural fluid, Fluid Volume 59, Fluid Appearance Cloudy, Fluid RBC (Auto) 21, Fld Tot Nucleated Cell 1467, Fld Polynuclear WBCs % 2, Fld Mononuclear WBCs % 98 12/14/18 06:30: WBC 20.1 H* D, RBC 3.87 L, Hgb 12.2 L, Hct 38.2 L, MCV 98.7 H, MCH 31.6 H, MCHC 32.0, RDW 12.9, Plt Count 321, MPV 7.8, Neut % (Auto) 89.9 H, Lymph % (Auto) 5.3 L, [place] % (Auto) 4.6, Eos % (Auto) 0.0 L, Baso % (Auto) 0.0 L , Neut # (Auto) 18.1 H, Lymph # (Auto) 1.1, [place] # (Auto) 0.9, Eos # (Auto) 0.0, Baso # (Auto) 0.0, Total Counted 100, Neutrophils % (Manual) 86 H, Band Neutrophils % 4.0, Lymphocytes % (Manual) 6 L, Monocytes % (Manual) 4, Platelet Estimate Normal 12/14/18 06:30: Lactate Dehydrogenase 201, Total Protein 6.4 I & O for Last 24 hours: Intake & Output 12/11/18 12/12/18 12/13/18 12/14/18 11:59 11:59 11:59 11:59 Intake Total 3234 / 3234 780 / 780 Output Total 350 / 350 650 / 650 Balance 2884 / 2884 130 / 130 Weight 184 lb 180 lb 11.2 oz Microbiology Reports for the Last 24 Hours: Microbiology 12/12/18 11:20 Sputum - Expectorated Sputum Gram Stain - Final 12/12/18 11:20 Sputum - Expectorated Sputum Sputum Culture - Final Normal Respiratory Joanne 12/13/18 09:50 Pleural Fluid - Pleura,Rt Lung Gram Stain - Final Radiology Reports for the Last 24 Hours: Repeat chest x-ray 12/13/2018 IMPRESSION: 1. No evidence of pneumothorax. 2. CHF with interstitial lung disease. 3. Right lower lobe pneumonia with small effusion probably unchanged given the difference in technique - Constitutional no acute distress Comments: Appears comfortable - *Routine Respiratory Exam Comments: Much improved breath sounds on the right with crackles throughout. - *Routine Cardiovascular Exam Comments: Irregular rhythm - *Routine Abdominal Exam Present: soft, normoactive bowel sounds. Absent: tenderness - *Routine Extremities Exam Absent: edema - *Routine Neurological Exam Present: alert, oriented X3 Assessment and Plan (1) Acute respiratory failure Current visit: Yes Status: Acute Category: Medical Code(s): J96.00 - Acute respiratory failure, unspecified whether with hypoxia or hypercapnia (2) Pneumonia Current visit: Yes Status: Acute Category: Medical Code(s): J18.9 - Pneumonia, unspecified organism (3) Hypoxia Current visit: Yes Status: Acute Category: Medical Code(s): R09.02
--- NOTE | 2018-12-14 10:06 | PC.NURSE ---
Patient currently on room air and walking around his room, o2 saturation obtained 91% obtained while walking. will continue to monitor.
--- NOTE | 2018-12-14 10:08 | CA_ITS ---
PROCEDURE: 2-D M-mode and color Doppler study INDICATIONS FOR THE TEST: Chest pain COPDX Heart Murmur Tobacco SmokingX Palpitations Fatigue Syncope Edema Hypertension Diabetes Mellitus Rheumatic Fever SOBXDOEXObesity Hyperlipidemia Family History HD Additional History CHRONIC AF,CHF TDS SECONDARY RESPIRATIONS PATIENT INFORMATION HEIGHT: 72 WEIGHT:180 GENDER: Male B/P:140/80 2-D/M-MODE INTERPRETATION: 2-D MEASUREMENTS OBSERVED VALUES IN CMS Right Ventricular Dimension (RVDd) 2.2 Interventricular Septum (Thickness)(IVsd) .8 Left Ventricular Internal Dimensions(LVIDd) 5.8 Left Ventricular Posterior Wall (Thickness)(LVPWd) 1.2 Aortic Root 3.2 Aortic Cusp Separation Left Atrial Dimensions (LAD) 3.8 2D 1. Left atrium is mildly enlarged, left ventricle is normal size, there is no concentric left ventricular hypertrophy, visually estimated ejection fraction 55% with no regional wall motion abnormality, there is abnormal septal motion. 2. The right atrium is mildly enlarged, right ventricle is normal size and contractility. 3. The aortic valve is minimally thickened and fibrosed. 4. The mitral and tricuspid valve leaflets are minimally thickened. 5. The pulmonic valve is poorly visualized. 6. No significant pericardial effusion noted. DOPPLER INTERROGATION: Doppler interrogation of the aortic, mitral and tricuspid valvular presence of mild mitral and tricuspid regurgitation, tricuspid regurgitation jet velocity is inadequate for calculation of the right ventricular systolic pressure, diastolic parameters are inconclusive. Inferior vena cava is normal size with normal inspiratory collapse. CONCLUSION: 1. Mildly enlarged left atrium, normal left ventricular size, visually estimated ejection fraction 55% with no regional wall motion abnormality, diastolic parameters are inconclusive. 2. Mildly enlarged right atrium, right ventricle is normal size and contractility. 3. Mild mitral and tricuspid regurgitation, tricuspid regurgitation jet velocity is inadequate for calculation of the right ventricular systolic pressure, inferior vena cava is normal size with normal inspiratory collapse. 4. No significant pericardial effusion noted.
--- NOTE | 2018-12-14 13:39 | HMH.PHAINT ---
DISCHARGE COUNSELING COMPLETED. PT COUNSELED TO STOP TAKING TOPROL XL. START TAKING DILTIAZEM, CEPHALEXIN, METHYLPREDNISOLONE, NICOTINE PATCHES. PT AND DAUGHTER VERBALIZED UNDERSTANDING. PRESCRIPTIONS SENT TO [facility].
[2018-12-14 14:42] LABS: Glucose, Body Fluid 187 mg/dL (.); LD, Body Fluid 265 IU/L (.); Protein, Body Fluid 4.5 g/dL (.)
--- NOTE | 2018-12-15 17:02 | [facility].DCSUM ---
General - General Admission date:: 12/12/18 Discharge date: 12/14/18 HPI HPI: Mr. Townsend is a 63-year-old male who presented to the office of [facility] after not feeling well for the past 2 weeks. 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 He was previously treated with 2 rounds of antibiotics for pneumonia after which he stated he never completely recovered. With the persistent shortness of breath he decided he better see his physician. With exam and assessment in the office O2 sats were 88-89% on room air. He was started on nasal oxygen at 2LPM with improvement of O2 sat to 91%. He denied fever, sore throat, rhinorrhea, headache and body aches. He described his chest as being sore. He did experience heart palpitations. 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 Due to his failure with outpatient treatment and his hypoxia he was admitted to [facility] for further evaluation and treatment <Leslye Martino - 12/12/18 14:25> Hospital Course Hospital Course: On admission patient was started on piperacillin IV, DuoNeb treatments and steroids. Chest x-ray showed a large right pleural effusion as stated his CT scan of the chest. CT of the abdomen and pelvis was done as well due to patient's hematuria. It showed the mild thickening of the urinary bladder wall and diverticulosis of the colon without diverticulitis. Patient was also started on as cardiazem drip for atrial fibrillation. This did control the ventricular rate but the patient did not convert. He was started on p.o. diltiazem. Patient received morphine and Toradol for his pleuritic pain and back pain. The patient was seen by maintenance specialist Dr. Henriquez who felt findings were consistent with pneumonia. He recommended pleural fluid be sent for culture for tuberculosis and for fungal organisms as well as cytology protein glucose LDH and cultures. These were ordered. He also stated that if the pleural fluid returns then pleural biopsy should be undertaken. As he noted that since the pneumonia did not clear after receiving potent antibiotics and because of lymphocytosis in the pleural fluid that fungal or mycobacterial organisms should be excluded. He felt cancer was less likely but would have to be excluded if patient was without improvement. He will see patient in follow-up after hospitalization. The patient was also seen by urologist, Dr. Garcia. He reviewed the abdomen/pelvis CT scan and noted thickened area of the left lateral bladder wall without gross tumor. He suggested follow-up with him in 1 week to address the bladder and arrange for cystoscopy with possible bladder biopsy. Patient had ultrasound thoracentesis on 12/13/[address] Red and approximately 3500 cc of blood-tinged fluid was drained. Patient tolerated the procedure well. The following day he felt well and was wanting to go home. Blood and sputum and pleural fluid cultures were negative thus far. He did have an echocardiogram which showed 55% ejection fraction. Patient was weaned from his oxygen with O2 sat at 92% on room air. He was felt to be stable for discharge. Patient was discharged to home in stable satisfactory condition. He was to continue with PO antibiotics and diltiazem for his atrial fib. He is to have a follow-up visit to review all cultures. Also he will follow-up with Dr. Garcia for cystoscopy. Patient was counseled on smoking cessation. Objective Vital signs: Temp Pulse Resp BP Pulse Ox 98.3 F 90 16 110/69 90 L 12/14/18 11:10 12/14/18 12:00 12/14/18 11:10 12/14/18 11:10 12/14/18 11:43 Narrative: - Constitutional no acute distress Comments: Appears comfortable - *Routine Respiratory Exam Comments: Much improved breath sounds on the right with crackles throughout. - *Routine Cardiovas
== END 2018-12-14 13:40 | disposition home or self-care (01) | DRG 193 ==
PROVIDERS: Admitting Provider Emergency Medicine; PCP Emergency Medicine; Visit Provider Emergency Medicine
DX: J18.9 Pneumonia, unspecified organism (principal); J96.01 Acute respiratory failure with hypoxia; J90 Pleural effusion, not elsewhere classified; C34.91 Malignant neoplasm of unspecified part of right bronchus or lung; I48.91 Unspecified atrial fibrillation; R10.9 Unspecified abdominal pain; F17.200 Nicotine dependence, unspecified, uncomplicated; J44.9 Chronic obstructive pulmonary disease, unspecified; Z96.653 Presence of artificial knee joint, bilateral; F17.210 Nicotine dependence, cigarettes, uncomplicated; R31.9 Hematuria, unspecified; N32.9 Bladder disorder, unspecified; M54.9 Dorsalgia, unspecified; D72.820 Lymphocytosis (symptomatic); K21.9 Gastro-esophageal reflux disease without esophagitis; Z83.6 Family history of other diseases of the respiratory system; Z83.3 Family history of diabetes mellitus; Z82.3 Family history of stroke; Z88.5 Allergy status to narcotic agent; Z87.01 Personal history of pneumonia (recurrent); Z79.899 Other long term (current) drug therapy
CPT/HCPCS: 32555; 36415; 71046; 71260; 74178; 80053; 82945; 83605; 83615; 83735; 84155; 85007; 85025; 87040; 87070; 87102; 87116; 87186; 87205; 87206; 88112; 88305; 88342; 89051; 93005; 93306; 94640; 94761; J2543

== ENCOUNTER → 2018-12-20 08:23 | Outpatient (CLI) | payer MEDICARE, SELFPAY ==
[2018-12-20 10:53] LABS: Blood Urea Nitrogen 28 mg/dL (7-18); Creatinine,Serum 0.81 mg/dL (0.70-1.30); Estimated Glomerular Filt Rate 96 ml/min (>60); GFR (African American) 116 ML/MIN (>60)
== END ==
PROVIDERS: Visit Provider Emergency Medicine
DX: Z01.818 Encounter for other preprocedural examination (principal)
CPT/HCPCS: 36415; 82565; 84520

== ENCOUNTER → 2018-12-23 13:59 | Outpatient (CLI) | payer MEDICARE, SELFPAY ==
--- NOTE | 2018-12-23 14:02 | CT_ITS ---
CT chest w con HISTORY: ITS.REASON: ADENOCARCINOMA ORDERING PHYSICIAN: Lynda Pratt MD PATIENT AGE: 63 years COMPARISON: None TECHNIQUE: Axial images obtained following the administration of 75 mL of Optiray 350 . Sagittal, and coronal reformatted images are also generated and reviewed. All CT scans at the facility use one or more dose reduction, viz: automated exposure control, ma/kV adjustment per patient size (including targeted exams where dose is matched to indication, i.e. head), or iterative reconstruction technique. FINDINGS Previously there was a large right-sided pleural effusion with compressive lung volume loss from the effusion. A thoracentesis was performed on 12/13/2018 with 3500 cc of blood-tinged fluid was drained with cytology results showing adenocarcinoma of the lung. The right pleural effusion has reaccumulated somewhat with a prominent subpulmonic component and persistent atelectatic changes of the right lower lobe. Effusion is not quite as large as it was prethoracentesis exam. There is some nodular thickening of the right minor fissure and major fissure. There is severe centrilobular emphysema. There is mild mediastinal and right hilar adenopathy. Subcarinal nodes are present which measure approximately 2.3 x 1.4 cm. The adenopathy is not significant change. There is nodularity along the medial aspect of the right upper lobe abutting the anterior mediastinum system with pleural thickening. Masslike consolidation is present in the right lower lobe posteriorly and medially. In the lung base posteriorly there are multiple nodular opacities be due to consolidation, atelectasis, or even neoplasm. No central obstructing bronchial lesion is evident. On the left there is a 4 mm noncalcified nodule in the upper lobe superiorly and anteriorly and 3 mm noncalcified nodule left upper lobe anteriorly additional 5 mm noncalcified nodule left upper lobe image #60 subpleural region. These are unchanged. Upper abdominal images again show a prominent subpulmonic effusion on the right. No acute bony findings. IMPRESSION: Medium size right-sided pleural effusion with moderate subpulmonic component. This is associated with some nodular thickening of the right major fissure and minor fissure as well as pleural thickening in the right upper lobe medially adjacent to the mediastinum. Masslike consolidation is noted in the right lower lobe. This could be the area of primary carcinoma with pleural implants. The masslike consolidation may however also merely represent residual pneumonia and volume loss from the previous large effusion. There is some mild mediastinal and right hilar adenopathy. Consider pulmonary consult with bronchoscopy for further evaluation. There are small left-sided pulmonary nodules which are unchanged 5 mm or less
== END ==
PROVIDERS: PCP Emergency Medicine; Visit Provider Emergency Medicine
DX: C34.91 Malignant neoplasm of unspecified part of right bronchus or lung (principal)
CPT/HCPCS: 71260; Q9967

== ENCOUNTER 2018-12-30 12:55 | Outpatient (CLI) | payer MEDICARE, SELFPAY ==
[2018-12-30 13:04] VITALS: BMI 23.8
[2018-12-30 13:24] LABS: Basophils # 0.1 K/mm3 (0-0.2); Basophils % 0.6 % (0.1-2.0); Eosinophils # 0.1 K/mm3 (0.0-0.4); Hematocrit 48.9 % (42.0-52.0); Hemoglobin 14.3 g/dL (14.1-18.0); Lymphocytes # 2.2 K/mm3 (0.7-4.5); Mean Corpuscular HGB Conc 29.4 g/dL (31.8-35.4); Mean Corpuscular Hemoglobin 29.1 pg (27.0-31.2); Mean Corpuscular Volume 98.9 fl (80-94); Mean Platelet Volume 8.3 fl (7.4-10.4); Monocytes # 0.6 K/mm3 (0.1-1.0); Monocytes % 4.8 % (1.7-9.3); Neutrophils # 8.5 K/mm3 (1.8-7.8); Neutrophils % 74.7 % (37.0-80.0); Platelet Count 277 K/mm3 (142-424); Red Blood Count 4.94 M/mm3 (4.60-6.20); White Blood Count 11.4 K/mm3 (4.8-10.8)
[2018-12-30 13:40] VITALS: BP 113/75; PULSE 104; RESP 20; O2SAT 96
[2018-12-30 13:42] LABS: Alanine Aminotransferase 31 U/L (12-78); Albumin Level 2.7 gm/dL (3.4-5.0); Albumin/Globulin Ratio 0.8 (1.1-1.8); Alkaline Phosphatase 94 U/L (46-116); Anion Gap 13.9 mEq/L (5-15); Aspartate Amino Transferase 17 U/L (15-37); Bilirubin,Total 0.3 mg/dL (0.2-1.0); Blood Urea Nitrogen 22 mg/dL (7-18); Calcium 8.6 mg/dL (8.5-10.1); Carbon Dioxide 27 mmol/L (21.0-32.0); Chloride 104 mmol/L (98-107); Creatinine Clearance Estimated 84 mL/min (50-200); Creatinine,Serum 0.91 mg/dL (0.70-1.30); Estimated Glomerular Filt Rate 84 ml/min (>60); GFR (African American) 101 ML/MIN (>60); Globulin 3.6 gm/dl (1.3-3.2); Glucose 141 mg/dL (74-106); Potassium 4.9 mmoL/L (3.5-5.1); Sodium 140 mmol/L (136-145); Total Protein,Serum 6.3 gm/dL (6.4-8.2)
== END 2018-12-30 13:50 | disposition home or self-care (01) ==
LOC: INF 13:07
PROVIDERS: Visit Provider Internal Medicine Medical Oncology
DX: Z45.2 Encounter for adjustment and management of vascular access device (principal)
CPT/HCPCS: 36415; 80053; 85025; 96372

== ENCOUNTER → 2019-01-03 11:17 | Outpatient (CLI) | payer MEDICARE, SELFPAY ==
--- NOTE | 2019-01-03 11:19 | MR_ITS ---
MR head/brain wo/w con HISTORY: Metastatic lung cancer ITS.REASON: LUNG CANCER, METS ORDERING PHYSICIAN: Trinidad River MD PATIENT AGE: 63 years Comparison: None TECHNIQUE: Standard multiplanar multiecho sequences are performed without and with gadolinium enhancement. FINDINGS: There is a small area of restricted diffusion in the right parietal lobe involving the cortex curvilinear in nature suggesting a small cortical infarct. In addition, there is a small area prescriptive diffusion in the left occipital lobe which could represent a tiny area of infarction. This measures approximately 3 mm. The right parietal area measures approximately 4 mm. These areas do not demonstrate contrast enhancement. No midline shift, mass effect, intracranial hemorrhage, or hydrocephalus is evident. The cerebellopontine angles, cerebellum, and brainstem are unremarkable. Scattered periventricular and subcortical T2 white matter hyperintensities are present consistent with ischemic gliotic change from microvascular disease. The ventricles are asymmetric with the right lateral ventricle is larger than the left side. This may be a normal variant. The temporal horn on the right is not dilated. No convincing evidence of metastatic disease. The pituitary, optic chiasm, corpus callosum, and craniocervical junction have an unremarkable appearance. No mastoid effusion. There is an air-fluid level in right maxillary sinus. IMPRESSION: 1. No evidence of metastatic disease. 2. Small areas of restricted diffusion in the right parietal and left occipital area suggesting small areas of infarction. 3. Right maxillary sinus disease
== END ==
PROVIDERS: PCP Emergency Medicine; Visit Provider Internal Medicine Medical Oncology
DX: C34.90 Malignant neoplasm of unspecified part of unspecified bronchus or lung (principal); Z03.89 Encounter for observation for other suspected diseases and conditions ruled out
CPT/HCPCS: 70553; A9576

== ENCOUNTER → 2019-01-05 12:18 | Outpatient (CLI) | payer MEDICARE, SELFPAY ==
--- NOTE | 2019-01-05 12:21 | US_ITS ---
US thoracentesis HISTORY: Reaccumulated right pleural effusion, difficulty breathing ITS.REASON: ESCITES ORDERING PHYSICIAN: Trinidad River MD PATIENT AGE: 63 years Comparison: None PROCEDURE: Following obtaining informed consent and after appropriate Time out, under aseptic conditions and local anesthesia with 1% buffered lidocaine using sonographic guidance a 4 Azeri one-step catheter was inserted into the posterior axillary line in the right lower hemithorax. Approximately 3200 cc of blood-tinged fluid was drained. The patient tolerated the procedure well and left the radiology suite in stable condition. Patient did remarked that his breathing has improved. Postthoracentesis radiograph showed no evidence of pneumothorax IMPRESSION: Successful sonographic guided thoracentesis without complication
--- NOTE | 2019-01-05 14:10 | XR_ITS ---
XR chest 2V HISTORY: ITS.REASON: POST THORACENTESIS ORDERING PHYSICIAN: Trinidad River MD PATIENT AGE: 63 years COMPARISON: 01/04/2019 FINDINGS: Status post right-sided thoracentesis. There is been marked decrease in size of the right pleural effusion. No evidence of pneumothorax. There is some pleural thickening persistent in the right mid and lower lung with some persistent consolidation in the right lower lobe with some thickening of the right major fissure inferiorly. Right subclavian Port-A-Cath present with the tip in the region of the SVC. Chronic interstitial changes are present on the left IMPRESSION: 1. Status post thoracentesis with decrease in size of right effusion and no evidence of pneumothorax. 2. Right-sided pleural thickening with continued consolidation/volume loss in the right lower lobe
--- NOTE | 2019-01-05 16:00 | XR_ITS ---
XR chest 2V HISTORY: ITS.REASON: POST THORACENTESIS ORDERING PHYSICIAN: Trinidad River MD PATIENT AGE: 63 years COMPARISON: 01/05/2019 FINDINGS: Status post right-sided thoracentesis. There is been marked decrease in size of the right pleural effusion. No evidence of pneumothorax. There is some pleural thickening persistent in the right mid and lower lung with some persistent consolidation in the right lower lobe with some thickening of the right major fissure inferiorly. Right subclavian Port-A-Cath present with the tip in the region of the SVC. Chronic interstitial changes are present on the left IMPRESSION: 1. Status post thoracentesis with decrease in size of right effusion and no evidence of pneumothorax. 2. Right-sided pleural thickening with continued consolidation/volume loss in the right lower lobe
== END ==
PROVIDERS: PCP Emergency Medicine; Visit Provider Internal Medicine Medical Oncology
DX: J91.8 Pleural effusion in other conditions classified elsewhere (principal)
CPT/HCPCS: 32555; 71046

== ENCOUNTER 2019-01-06 08:30 | Outpatient (CLI) | payer MEDICARE, SELFPAY ==
[2019-01-06 09:50] VITALS: BP 102/62; PULSE 68; RESP 20; TEMP 36.9; O2SAT 95
[2019-01-06 10:30] VITALS: BP 102/65; PULSE 68; RESP 20; TEMP 36.9
[2019-01-06 10:55] VITALS: BP 103/55; PULSE 68; RESP 20; TEMP 36.9
[2019-01-06 11:20] VITALS: BP 104/58; PULSE 68; RESP 20; TEMP 36.9
== END 2019-01-06 11:30 | disposition home or self-care (01) ==
LOC: INF 08:40
PROVIDERS: Visit Provider Internal Medicine Medical Oncology
DX: Z51.11 Encounter for antineoplastic chemotherapy (principal); C34.91 Malignant neoplasm of unspecified part of right bronchus or lung
CPT/HCPCS: 96413; 96417; J1642; J8501; J9045; J9271; J9305; Q0166

== ENCOUNTER → 2019-01-23 11:31 | Outpatient (CLI) | payer MEDICARE, SELFPAY ==
--- NOTE | 2019-01-23 | XR_ITS ---
XR chest AP HISTORY: ITS.REASON: 2 HR POST THORACENTESIS ORDERING PHYSICIAN: Trinidad River MD PATIENT AGE: 63 years COMPARISON: 10) and 1:09 PM. Current study is taken at 3:10 PM. FINDINGS: Again seen is the very small less than 5% right apical pneumothorax which is slightly smaller compared to the prior study. The remainder of the chest findings are stable. IMPRESSION: Slightly smaller less than 5% right-sided pneumothorax. Results have been given to the referring physician, Dr. River on 01/23/2019 at 3:15 PM.
--- NOTE | 2019-01-23 | XR_ITS ---
XR chest AP HISTORY: ITS.REASON: POST- THORACENTESIS ORDERING PHYSICIAN: Trinidad River MD PATIENT AGE: 63 years COMPARISON: 01/05/2019. FINDINGS: Cardiac silhouette, hilar areas and pulmonary vessels are stable. There is persistent interstitial prominence and residual thin strand of increased density in right midlung. There is persistent mild blunting of the right lateral costophrenic angle suggesting pleural thickening. There is suggestion of a very small less than 5% right apical pneumothorax. Impression: Mild less than 5% right apical pneumothorax following the thoracentesis. Persistent interstitial prominence likely fibrosis. Probable right midlung scar and right lateral pleural thickening. Patient will undergo repeat view of the chest in 2 hours.
--- NOTE | 2019-01-23 11:50 | US_ITS ---
US thoracentesis ORDERING PHYSICIAN : Trinidad River MD PATIENT AGE: 63 years GENDER: Male HISTORY:ITS.REASON: LUNG CA,ASCITES COMPARISON: TECHNIQUE: Procedure as well as potential risks and complications such as bleeding, infection or pneumothorax were explained to the patient. Procedure performed with local anesthesia and sterile technique. The tip of a 17-gauge thoracentesis needle is positioned in the right-sided posterior inferior lateral effusion. A total of 1500 bloody fluid was removed. There was no immediate complication. FINDINGS: 15 cc of dark bloody fluid was aspirated from the right-sided pleural effusion. IMPRESSION: Status post right-sided ultrasound-guided thoracentesis as discussed above.
== END ==
PROVIDERS: PCP Emergency Medicine; Visit Provider Internal Medicine Medical Oncology
DX: C34.90 Malignant neoplasm of unspecified part of unspecified bronchus or lung (principal)
CPT/HCPCS: 32555; 71045

== ENCOUNTER 2019-01-26 08:55 | Outpatient (CLI) | payer MEDICARE, SELFPAY ==
[2019-01-26] VITALS (8 sets, daily range): BP systolic 99–120; BP diastolic 55–77; PULSE 86–99; RESP 18–20; TEMP 36.4; O2SAT 98; BMI 23.0
[2019-01-26 09:22] LABS: Basophils # 0.1 K/mm3 (0-0.2); Basophils % 0.8 % (0.1-2.0); Eosinophils # 0.2 K/mm3 (0.0-0.4); Eosinophils % 1.5 % (0.1-12.0); Hematocrit 38.4 % (42.0-52.0); Hemoglobin 12.2 g/dL (14.1-18.0); Lymphocytes # 2.7 K/mm3 (0.7-4.5); Lymphocytes % 25.7 % (10-50); Mean Corpuscular HGB Conc 31.9 g/dL (31.8-35.4); Mean Corpuscular Hemoglobin 30.7 pg (27.0-31.2); Mean Corpuscular Volume 96.3 fl (80-94); Mean Platelet Volume 8.1 fl (7.4-10.4); Monocytes # 0.9 K/mm3 (0.1-1.0); Monocytes % 8.8 % (1.7-9.3); Neutrophils # 6.7 K/mm3 (1.8-7.8); Neutrophils % 63.2 % (37.0-80.0); Red Blood Count 3.98 M/mm3 (4.60-6.20); Red Cell Distribution Width 14.3 % (11.5-17.5); White Blood Count 10.6 K/mm3 (4.8-10.8)
[2019-01-26 09:51] LABS: Alanine Aminotransferase 41 U/L (12-78); Albumin Level 2.7 gm/dL (3.4-5.0); Albumin/Globulin Ratio 0.7 (1.1-1.8); Alkaline Phosphatase 119 U/L (46-116); Anion Gap 14.2 mEq/L (5-15); Aspartate Amino Transferase 31 U/L (15-37); Bilirubin,Total 0.3 mg/dL (0.2-1.0); Blood Urea Nitrogen 17 mg/dL (7-18); Calcium 8.6 mg/dL (8.5-10.1); Carbon Dioxide 25 mmol/L (21.0-32.0); Chloride 102 mmol/L (98-107); Creatinine Clearance Estimated 81 mL/min (50-200); Creatinine,Serum 0.83 mg/dL (0.70-1.30); Estimated Glomerular Filt Rate 93 ml/min (>60); GFR (African American) 113 ML/MIN (>60); Globulin 4.1 gm/dl (1.3-3.2); Glucose 103 mg/dL (74-106); Potassium 4.2 mmoL/L (3.5-5.1); Sodium 137 mmol/L (136-145); Total Protein,Serum 6.8 gm/dL (6.4-8.2)
[2019-01-26 09:52] LABS: Platelet Count 610 K/mm3 (142-424)
== END 2019-01-26 13:30 | disposition home or self-care (01) ==
LOC: INF 09:00
PROVIDERS: Visit Provider Internal Medicine Medical Oncology
DX: Z51.11 Encounter for antineoplastic chemotherapy (principal); C34.81 Malignant neoplasm of overlapping sites of right bronchus and lung
CPT/HCPCS: 80053; 85025; 96411; 96413; 96417; J8501; J9045; J9271; J9305; Q0166

== ENCOUNTER 2019-02-16 10:09 | Outpatient (CLI) | payer MEDICARE, SELFPAY ==
[2019-02-16 10:11] VITALS: BMI 21.7
[2019-02-16 10:33] LABS: Eosinophils # 0.1 K/mm3 (0.0-0.4); Hematocrit 33.7 % (42.0-52.0); Hemoglobin 10.8 g/dL (14.1-18.0); Mean Corpuscular Volume 93.8 fl (80-94); Mean Platelet Volume 7.1 fl (7.4-10.4); Platelet Count 419 K/mm3 (142-424); Red Blood Count 3.59 M/mm3 (4.60-6.20); Red Cell Distribution Width 15.1 % (11.5-17.5)
[2019-02-16 10:35] LABS: MANUAL DIFFERENTIAL MANUAL DIFFERENTIAL (MANUAL DIFF)
[2019-02-16 10:42] LABS: Alanine Aminotransferase 17 U/L (12-78); Albumin Level 2.8 gm/dL (3.4-5.0); Albumin/Globulin Ratio 0.7 (1.1-1.8); Alkaline Phosphatase 120 U/L (46-116); Anion Gap 14.1 mEq/L (5-15); Aspartate Amino Transferase 10 U/L (15-37); Bilirubin,Total 0.4 mg/dL (0.2-1.0); Blood Urea Nitrogen 17 mg/dL (7-18); Carbon Dioxide 25 mmol/L (21.0-32.0); Chloride 101 mmol/L (98-107); Creatinine Clearance Estimated 79 mL/min (50-200); Creatinine,Serum 0.97 mg/dL (0.70-1.30); Estimated Glomerular Filt Rate 78 ml/min (>60); GFR (African American) 94 ML/MIN (>60); Globulin 4.1 gm/dl (1.3-3.2); Glucose 134 mg/dL (74-106); Potassium 4.1 mmoL/L (3.5-5.1); Sodium 136 mmol/L (136-145); Total Protein,Serum 6.9 gm/dL (6.4-8.2)
[2019-02-16 11:06] LABS: Monocytes % 8.7 % (1.7-9.3)
[2019-02-16 11:07] LABS: Basophils % 0.5 % (0.1-2.0); Eosinophils % 1.2 % (0.1-12.0)
[2019-02-16 11:08] LABS: Lymphocytes % 17.9 % (10-50); Neutrophils # 5.6 K/mm3 (1.8-7.8)
[2019-02-16 11:09] LABS: Lymphocytes # 1.4 K/mm3 (0.7-4.5); Monocytes # 0.7 K/mm3 (0.1-1.0)
[2019-02-16 11:10] LABS: Neutrophils % 71.7 % (37.0-80.0)
[2019-02-16 11:49] LABS: Lymphocytes % 20 % (10-50); Monocytes % 6 % (2-9); Neutrophils % 74 % (42-76); Total Cells Counted 100
[2019-02-16 11:53] LABS: RBC Morphology Normal
[2019-02-16 11:54] LABS: Platelet Estimate Normal
== END 2019-02-16 10:40 | disposition home or self-care (01) ==
LOC: INF 10:09
PROVIDERS: Visit Provider Internal Medicine Medical Oncology
DX: C34.81 Malignant neoplasm of overlapping sites of right bronchus and lung (principal)
CPT/HCPCS: 80053; 85007; 85025; J1642

== ENCOUNTER 2019-02-17 08:35 | Outpatient (CLI) | payer MEDICARE, SELFPAY ==
[2019-02-17 09:50] VITALS: BP 105/70; PULSE 85; RESP 20; TEMP 36.9; O2SAT 95
[2019-02-17 10:20] VITALS: BP 105/68; PULSE 68; RESP 20; TEMP 36.9; O2SAT 95
[2019-02-17 11:10] VITALS: BP 105/66; PULSE 68; RESP 20; TEMP 36.9; O2SAT 95
[2019-02-17 11:40] VITALS: BP 118/74; PULSE 68; RESP 20; TEMP 36.9; O2SAT 95
== END 2019-02-17 11:45 | disposition home or self-care (01) ==
LOC: INF 08:35
PROVIDERS: Visit Provider Internal Medicine Medical Oncology
DX: Z51.11 Encounter for antineoplastic chemotherapy (principal); C34.81 Malignant neoplasm of overlapping sites of right bronchus and lung
CPT/HCPCS: 96413; 96415; 96417; J8501; J9045; J9271; J9305; Q0166

== ENCOUNTER 2019-03-03 09:33 | Outpatient (CLI) | payer MEDICARE, SELFPAY ==
[2019-03-03 09:14] VITALS: BMI 22.9
[2019-03-03 09:42] LABS: Basophils % 0.8 % (0.1-2.0); Eosinophils % 0.6 % (0.1-12.0); Hematocrit 33.3 % (42.0-52.0); Hemoglobin 10.4 g/dL (14.1-18.0); Lymphocytes # 0.8 K/mm3 (0.7-4.5); Lymphocytes % 19.5 % (10-50); Mean Corpuscular HGB Conc 31.1 g/dL (31.8-35.4); Mean Corpuscular Hemoglobin 31.4 pg (27.0-31.2); Mean Corpuscular Volume 100.9 fl (80-94); Mean Platelet Volume 7.9 fl (7.4-10.4); Monocytes # 0.4 K/mm3 (0.1-1.0); Monocytes % 10.4 % (1.7-9.3); Neutrophils # 2.8 K/mm3 (1.8-7.8); Neutrophils % 68.6 % (37.0-80.0); Platelet Count 243 K/mm3 (142-424); Red Cell Distribution Width 15.7 % (11.5-17.5); White Blood Count 4.1 K/mm3 (4.8-10.8)
--- NOTE | 2019-03-03 09:45 | CT_ITS ---
CT chest w con INDICATION: Follow-up known adenocarcinoma along with recent thoracentesis, currently on chemotherapy ITS.REASON: LUNG CANCER ORDERING PHYSICIAN: Trinidad River MD PATIENT AGE: 63 years COMPARISON: 12/23/2018 TECHNIQUE: Axial images obtained with sagittal and coronal reformats. All CT scans at the facility use one or more dose reduction, viz: automated exposure control, ma/kV adjustment per patient size (including targeted exams where dose is matched to indication, i.e. head), or iterative reconstruction technique. Redicat oral contrast was given along with a 75 mL of Optiray 350 injected intravenously. FINDINGS: The reaccumulated right pleural effusion seen on the previous study has stabilized and she has actually decreased in size somewhat. There remains a small subpulmonic component with filling of the right costo phrenic angles well. Also there has been interval almost complete resolution of the subcarinal and right hilar adenopathy seen on the previous study. Lung windows again shows changes of advanced centrilobular emphysema. Both lung valentino appear clear of active pneumonic infiltrate. There is a right-sided subclavian central line with the tip at the junction of the SVC with the right atrium Scans into the upper abdomen show mild enlargement of the adrenal glands bilaterally suggesting adrenal hyperplasia but doubt metastatic involvement. The bony thorax appears intact with no evidence of metastatic disease. IMPRESSION: Apparent stabilization of the reaccumulated subpulmonic pleural effusion and interval improvement and almost complete resolution of the subcarinal and right hilar adenopathy seen previously.
--- NOTE | 2019-03-03 09:45 | CT_ITS ---
CT abdomen pelvis w con CLINICAL HISTORY: Known right-sided adenocarcinoma the lung TECHNIQUE: Axial images obtained with sagittal and coronal reformats. All CT scans at the facility use one or more dose reduction, viz: automated exposure control, ma/kV adjustment per patient size (including targeted exams where dose is matched to indication, i.e. head), or iterative reconstruction technique. COMPARISON: CT scan abdomen pelvis with IV contrast only 12/12/2018 PROCEDURE: Oral Contrast:Redicat was given IV Contrast: 75 ml Optiray 350 was injected intravenously. FINDINGS: Lung bases: There is a small moderate size subpulmonic right pleural effusion ABDOMEN: Liver: No masses or biliary dilatation. Gallbladder: Normal in size but there are no definite stones Pancreas: No masses or peripancreatic fluid collections. Spleen: Unremarkable. Adrenals: Both adrenal glands are mildly enlarged suggesting mild adrenal hyperplasia Kidneys/ureters: No masses. No renal calculi. No hydronephrosis. No perinephric fluid collections. No ureteral dilatation or obvious ureteral calculi. The kidneys show symmetrical function following injection of contrast. There is mild hydroureter on the right side down to the UV junction but no definite ureteral calculi are noted. Possibly there has been a recently passed right ureteral calculus. Stomach bowel: The stomach is moderately distended with oral contrast and some ingested food particles. The small bowel appears normal. There has been previous appendectomy. There is a moderately large amount stool in the cecum ascending and transverse colon. The descending colon somewhat decompressed, there is mild diverticulosis of the sigmoid colon with is no evidence of diverticulitis. Peritoneum: No abnormal fluid collections. No obvious inflammatory changes. Lymph nodes: No enlarged lymph nodes apparent. Vasculature: There is prominent diffuse arteriosclerotic calcification of the abdominal aorta and proximal iliac arteries but there is no aneurysm. Bones: There are mild multilevel degenerative changes of the lower lumbar spine. PELVIS: Reproductive: Unremarkable Bladder: The bladder is decompressed and there is marked diffuse thickening of the bladder wall probably due to lack of distention, prostate is mildly enlarged Appendix: Post appendectomy IMPRESSION: 1. Mild hydroureter right side without evidence of obstructive uropathy right kidney 2. Prominent but symmetrical thickening of the bladder wall probably due to lack of distention 3. Mild diffuse diverticulosis of the sigmoid colon without diverticulitis
[2019-03-03 10:11] LABS: Alanine Aminotransferase 21 U/L (12-78); Albumin Level 2.9 gm/dL (3.4-5.0); Albumin/Globulin Ratio 0.7 (1.1-1.8); Alkaline Phosphatase 127 U/L (46-116); Anion Gap 14.5 mEq/L (5-15); Aspartate Amino Transferase 16 U/L (15-37); Bilirubin,Total 0.4 mg/dL (0.2-1.0); Blood Urea Nitrogen 13 mg/dL (7-18); Calcium 8.8 mg/dL (8.5-10.1); Carbon Dioxide 24 mmol/L (21.0-32.0); Chloride 94 mmol/L (98-107); Creatinine Clearance Estimated 69 mL/min (50-200); Creatinine,Serum 1.17 mg/dL (0.70-1.30); Estimated Glomerular Filt Rate 63 ml/min (>60); GFR (African American) 76 ML/MIN (>60); Glucose 116 mg/dL (74-106); Potassium 4.5 mmoL/L (3.5-5.1); Sodium 128 mmol/L (136-145); Total Protein,Serum 6.9 gm/dL (6.4-8.2)
== END 2019-03-03 10:58 | disposition home or self-care (01) ==
LOC: RAD 09:34
PROVIDERS: PCP Emergency Medicine; Visit Provider Internal Medicine Medical Oncology
DX: C34.81 Malignant neoplasm of overlapping sites of right bronchus and lung (principal); Z03.89 Encounter for observation for other suspected diseases and conditions ruled out
CPT/HCPCS: 71260; 74177; 80053; 85025; J1642; Q9967

== ENCOUNTER 2019-03-09 09:23 | Outpatient (CLI) | payer MEDICARE, SELFPAY ==
[2019-03-09] VITALS (8 sets, daily range): BP systolic 85–105; BP diastolic 47–58; PULSE 90–107; RESP 16–20; TEMP 36.8; O2SAT 94; BMI 22.4
[2019-03-09 10:55] LABS: Thyroid Stimulating Hormone 1.68 uIU/ml (0.358-3.740)
== END 2019-03-09 12:30 | disposition home or self-care (01) ==
LOC: INF 09:23
PROVIDERS: Visit Provider Internal Medicine Medical Oncology
DX: Z51.11 Encounter for antineoplastic chemotherapy (principal); C34.81 Malignant neoplasm of overlapping sites of right bronchus and lung; Z79.899 Other long term (current) drug therapy
CPT/HCPCS: 82533; 84443; 96411; 96413; 96417; J9045; J9271; J9305; Q0166

== ENCOUNTER 2019-03-30 09:21 | Outpatient (CLI) | payer MEDICARE, SELFPAY ==
[2019-03-30 09:21] VITALS: BMI 21.7
[2019-03-30 09:40] LABS: Basophils # 0.1 K/mm3 (0-0.2); Basophils % 0.6 % (0.1-2.0); Eosinophils # 0.1 K/mm3 (0.0-0.4); Eosinophils % 1.5 % (0.1-12.0); Hematocrit 31.9 % (42.0-52.0); Lymphocytes # 1.6 K/mm3 (0.7-4.5); Lymphocytes % 22.5 % (10-50); Mean Corpuscular HGB Conc 31.4 g/dL (31.8-35.4); Mean Corpuscular Hemoglobin 32.8 pg (27.0-31.2); Mean Corpuscular Volume 104.5 fl (80-94); Mean Platelet Volume 7.3 fl (7.4-10.4); Monocytes # 0.5 K/mm3 (0.1-1.0); Monocytes % 6.9 % (1.7-9.3); Neutrophils % 68.5 % (37.0-80.0); Platelet Count 507 K/mm3 (142-424); Red Blood Count 3.05 M/mm3 (4.60-6.20); Red Cell Distribution Width 17.3 % (11.5-17.5); White Blood Count 7.3 K/mm3 (4.8-10.8)
[2019-03-30 09:52] LABS: Alanine Aminotransferase 15 U/L (12-78); Albumin Level 2.9 gm/dL (3.4-5.0); Albumin/Globulin Ratio 0.7 (1.1-1.8); Alkaline Phosphatase 101 U/L (46-116); Anion Gap 12.1 mEq/L (5-15); Aspartate Amino Transferase 13 U/L (15-37); Bilirubin,Total 0.3 mg/dL (0.2-1.0); Blood Urea Nitrogen 10 mg/dL (7-18); Calcium 8.9 mg/dL (8.5-10.1); Carbon Dioxide 26 mmol/L (21.0-32.0); Chloride 102 mmol/L (98-107); Creatinine Clearance Estimated 79 mL/min (50-200); Creatinine,Serum 0.85 mg/dL (0.70-1.30); Estimated Glomerular Filt Rate 91 ml/min (>60); GFR (African American) 110 ML/MIN (>60); Glucose 150 mg/dL (74-106); Potassium 4.1 mmoL/L (3.5-5.1); Sodium 136 mmol/L (136-145); Total Protein,Serum 6.9 gm/dL (6.4-8.2)
== END 2019-03-30 09:30 | disposition home or self-care (01) ==
LOC: INF 09:21
PROVIDERS: Visit Provider Internal Medicine Medical Oncology
DX: C34.90 Malignant neoplasm of unspecified part of unspecified bronchus or lung (principal); Z45.2 Encounter for adjustment and management of vascular access device
CPT/HCPCS: 80053; 85025; J1642

== ENCOUNTER 2019-03-31 08:26 | Outpatient (CLI) | payer MEDICARE, SELFPAY ==
[2019-03-31 08:32] VITALS: BMI 23.2
[2019-03-31 08:49] VITALS: BP 104/69; PULSE 90; RESP 20; TEMP 36.8; O2SAT 98
[2019-03-31 09:33] LABS: Thyroid Stimulating Hormone 0.43 uIU/ml (0.358-3.740)
[2019-03-31 09:35] VITALS: BP 107/76; PULSE 97; RESP 18; TEMP 36.6
[2019-03-31 10:15] VITALS: BP 93/62; PULSE 96; RESP 18; TEMP 36.7
[2019-03-31 10:25] VITALS: BP 103/61; PULSE 88; RESP 18; TEMP 36.6
[2019-03-31 10:40] VITALS: BP 102/63; PULSE 92; RESP 18; TEMP 36.7
[2019-03-31 10:43] VITALS: BP 102/63; PULSE 92; RESP 18
== END 2019-03-31 10:50 | disposition home or self-care (01) ==
LOC: INF 08:26
PROVIDERS: Visit Provider Internal Medicine Medical Oncology
DX: C34.81 Malignant neoplasm of overlapping sites of right bronchus and lung (principal); Z79.899 Other long term (current) drug therapy
CPT/HCPCS: 82533; 84443; 96411; 96413; J9271; J9305; Q0166

== ENCOUNTER 2019-04-20 10:14 | Outpatient (CLI) | payer MEDICARE, SELFPAY ==
[2019-04-20 10:15] VITALS: BMI 22.6
[2019-04-20 10:42] LABS: Basophils # 0.1 K/mm3 (0-0.2); Basophils % 0.8 % (0.1-2.0); Eosinophils # 0.3 K/mm3 (0.0-0.4); Eosinophils % 2.9 % (0.1-12.0); Hematocrit 35.5 % (42.0-52.0); Hemoglobin 10.9 g/dL (14.1-18.0); Lymphocytes # 1.8 K/mm3 (0.7-4.5); Lymphocytes % 17.8 % (10-50); Mean Corpuscular HGB Conc 30.8 g/dL (31.8-35.4); Mean Corpuscular Hemoglobin 32.6 pg (27.0-31.2); Mean Corpuscular Volume 105.7 fl (80-94); Monocytes # 0.9 K/mm3 (0.1-1.0); Monocytes % 9.1 % (1.7-9.3); Neutrophils % 69.4 % (37.0-80.0); Platelet Count 432 K/mm3 (142-424); Red Blood Count 3.36 M/mm3 (4.60-6.20); Red Cell Distribution Width 15.7 % (11.5-17.5); White Blood Count 10.1 K/mm3 (4.8-10.8)
[2019-04-20 10:56] LABS: Alanine Aminotransferase 13 U/L (12-78); Albumin/Globulin Ratio 0.7 (1.1-1.8); Alkaline Phosphatase 94 U/L (46-116); Anion Gap 13.2 mEq/L (5-15); Aspartate Amino Transferase 18 U/L (15-37); Bilirubin,Total 0.3 mg/dL (0.2-1.0); Blood Urea Nitrogen 15 mg/dL (7-18); Calcium 8.6 mg/dL (8.5-10.1); Carbon Dioxide 25 mmol/L (21.0-32.0); Chloride 102 mmol/L (98-107); Creatinine Clearance Estimated 82 mL/min (50-200); Creatinine,Serum 0.79 mg/dL (0.70-1.30); Estimated Glomerular Filt Rate 99 ml/min (>60); GFR (African American) 119 ML/MIN (>60); Globulin 4.2 gm/dl (1.3-3.2); Glucose 117 mg/dL (74-106); Potassium 4.2 mmoL/L (3.5-5.1); Sodium 136 mmol/L (136-145); Total Protein,Serum 7.2 gm/dL (6.4-8.2)
[2019-04-20 12:22] VITALS: BP 112/62; PULSE 53; RESP 18; O2SAT 96
[2019-04-20 12:37] VITALS: BP 112/62; PULSE 81; RESP 18
[2019-04-20 12:52] VITALS: BP 103/64; PULSE 88; RESP 18
[2019-04-20 13:07] VITALS: BP 115/70; PULSE 90; RESP 16
[2019-04-20 13:18] VITALS: BP 112/69; PULSE 79; RESP 18
== END 2019-04-20 13:35 | disposition home or self-care (01) ==
LOC: INF 10:14
PROVIDERS: Visit Provider Internal Medicine Medical Oncology
DX: Z51.11 Encounter for antineoplastic chemotherapy (principal); C34.81 Malignant neoplasm of overlapping sites of right bronchus and lung
CPT/HCPCS: 80053; 85025; 96411; 96413; J8501; J9271; J9305; Q0166

== ENCOUNTER → 2019-05-12 08:49 | Outpatient (CLI) | payer MEDICARE, SELFPAY ==
[2019-05-12] VITALS (7 sets, daily range): BP systolic 101–133; BP diastolic 75–85; PULSE 72–103; RESP 18; TEMP 36.4–36.7; O2SAT 93; BMI 22.6
[2019-05-12 09:41] LABS: Basophils # 0.1 K/mm3 (0-0.2); Basophils % 0.8 % (0.1-2.0); Eosinophils # 0.1 K/mm3 (0.0-0.4); Eosinophils % 1.4 % (0.1-12.0); Hematocrit 38.9 % (42.0-52.0); Hemoglobin 11.5 g/dL (14.1-18.0); Mean Corpuscular HGB Conc 29.6 g/dL (31.8-35.4); Mean Corpuscular Hemoglobin 32.2 pg (27.0-31.2); Mean Corpuscular Volume 108.6 fl (80-94); Mean Platelet Volume 7.7 fl (7.4-10.4); Monocytes # 0.8 K/mm3 (0.1-1.0); Monocytes % 8.6 % (1.7-9.3); Neutrophils # 5.9 K/mm3 (1.8-7.8); Neutrophils % 66.2 % (37.0-80.0); Platelet Count 452 K/mm3 (142-424); Red Blood Count 3.58 M/mm3 (4.60-6.20); Red Cell Distribution Width 15.9 % (11.5-17.5); White Blood Count 8.8 K/mm3 (4.8-10.8)
[2019-05-12 10:13] LABS: Alanine Aminotransferase 14 U/L (12-78); Albumin Level 3.2 gm/dL (3.4-5.0); Albumin/Globulin Ratio 0.8 (1.1-1.8); Alkaline Phosphatase 95 U/L (46-116); Anion Gap 13.4 mEq/L (5-15); Aspartate Amino Transferase 12 U/L (15-37); Bilirubin,Total 0.3 mg/dL (0.2-1.0); Blood Urea Nitrogen 14 mg/dL (7-18); Calcium 9.1 mg/dL (8.5-10.1); Carbon Dioxide 27 mmol/L (21.0-32.0); Chloride 104 mmol/L (98-107); Creatinine Clearance Estimated 82 mL/min (50-200); Creatinine,Serum 0.83 mg/dL (0.70-1.30); Estimated Glomerular Filt Rate 93 ml/min (>60); GFR (African American) 113 ML/MIN (>60); Globulin 4.1 gm/dl (1.3-3.2); Glucose 85 mg/dL (74-106); Potassium 4.4 mmoL/L (3.5-5.1); Sodium 140 mmol/L (136-145); Total Protein,Serum 7.3 gm/dL (6.4-8.2)
[2019-05-12 11:07] LABS: Ferritin 346 ng/mL (8-388); Thyroid Stimulating Hormone 0.99 uIU/ml (0.358-3.740)
[2019-05-13 08:26] LABS: Iron 75 ug/dL (38-169); UIBC 188 ug/dL (111-343)
[2019-05-13 18:58] LABS: Iron Saturation 29 % (15-55)
[2019-05-18 17:00] LABS: Adrenocorticotropic Hormone 19.1 pg/mL (7.2-63.3)
== END ==
PROVIDERS: Visit Provider Internal Medicine Medical Oncology
DX: C34.81 Malignant neoplasm of overlapping sites of right bronchus and lung (principal); Z51.11 Encounter for antineoplastic chemotherapy; Z79.899 Other long term (current) drug therapy
CPT/HCPCS: 36415; 80053; 82024; 82533; 82728; 83540; 83550; 84443; 85025; 96413; 96415; 96417; J9271; J9305

== ENCOUNTER 2019-05-30 08:43 | Outpatient (CLI) | payer MEDICARE, SELFPAY ==
[2019-05-30 08:29] VITALS: BMI 22.8
[2019-05-30 08:48] LABS: Basophils # 0.1 K/mm3 (0-0.2); Basophils % 0.5 % (0.1-2.0); Eosinophils # 0.1 K/mm3 (0.0-0.4); Eosinophils % 0.7 % (0.1-12.0); Hematocrit 37.8 % (42.0-52.0); Hemoglobin 11.9 g/dL (14.1-18.0); Lymphocytes # 2.5 K/mm3 (0.7-4.5); Lymphocytes % 18.7 % (10-50); Mean Corpuscular HGB Conc 31.4 g/dL (31.8-35.4); Mean Corpuscular Hemoglobin 33.6 pg (27.0-31.2); Mean Corpuscular Volume 107.1 fl (80-94); Mean Platelet Volume 8.6 fl (7.4-10.4); Monocytes # 1.1 K/mm3 (0.1-1.0); Monocytes % 8.4 % (1.7-9.3); Neutrophils # 9.6 K/mm3 (1.8-7.8); Neutrophils % 71.7 % (37.0-80.0); Platelet Count 475 K/mm3 (142-424); Red Blood Count 3.53 M/mm3 (4.60-6.20); Red Cell Distribution Width 14.8 % (11.5-17.5); White Blood Count 13.3 K/mm3 (4.8-10.8)
--- NOTE | 2019-05-30 08:51 | CT_ITS ---
PROCEDURE: CT ABDOMEN PELVIS W CON CLINICAL INDICATION: LUNG CA Follow-up lung cancer COMPARISON: ABDPELW CT abdomen pelvis w con from 03/03/2019 TECHNIQUE: IV Contrast: 75ML OPTIRAY 350 Oral Contrast 450ml Redicat Axial images obtained with sagittal and coronal reformats. All CT scans at the facility use one or more dose reduction, viz: automated exposure control, ma/kV adjustment per patient size (including targeted exams where dose is matched to indication, i.e. head), or iterative reconstruction technique. FINDINGS: Pleural thickening noted in the right lung base with small effusion. The effusion has decreased in size. The liver, spleen, adrenal glands, and pancreas have an unremarkable appearance. There is a gallstone noted. No renal or ureteral calculi or hydronephrosis. No renal mass. Small renal cyst projects off the medial aspect of the left kidney at 1.6 cm. No intestinal obstruction or free air. No adenopathy. There is diverticulosis of the sigmoid colon without evidence of diverticulitis. The prostate is mildly enlarged. There is a small left inguinal hernia which contains fat. There are postsurgical changes of lumbar spine with mild wedging of L1. There is mild dilatation of the lower abdominal aorta at 2.2 cm. There has been interval improvement in the previously noted thickened urinary bladder and right hydroureter. IMPRESSION: 1. Right-sided pleural thickening in the lung base with small right effusion with decrease in size of the right effusion. 2. No convincing evidence of abdominal metastasis. 3. Cholelithiasis Dictated by: Zackery Red MD 05/31/2019 08:38 Electronically signed by Zackery Red MD in [place] 05/31/2019 11:58
--- NOTE | 2019-05-30 08:51 | CT_ITS ---
PROCEDURE: CT CHEST W CON CLINCAL INDICATION: LUNG CA Follow-up lung cancer COMPARISON: CHESTW CT chest w con from 03/03/2019 CT ABDOMEN PELVIS W CON from 05/30/2019 TECHNIQUE: IV Contrast: 75ml Optiray 350 Axial images obtained with sagittal and coronal reformats. All CT scans at the facility use one or more dose reduction, viz: automated exposure control, ma/kV adjustment per patient size (including targeted exams where dose is matched to indication, i.e. head), or iterative reconstruction technique. FINDINGS: MediPort catheter is present from the right subclavian approach. No mediastinal or hilar mass or adenopathy. COPD/centrilobular emphysema. There is pleural thickening in the right lung base with small effusion. The right-sided pleural effusion has decreased in size. There is some minimal subpleural parenchymal opacity noted in the right upper lobe anteriorly which has developed in the interval nonspecific. Pulmonary fibrotic changes are present with some mild honeycombing in the left upper lobe and right upper lobe along the major fissure as well as the lower lobes posteriorly and inferiorly. No acute bony findings are evident. IMPRESSION: 1. Decrease in right-sided pleural effusion with some mild pleural thickening/minimal residual fluid noted on the right with so shaded COPD, scarring and pulmonary fibrotic changes. 2. No adenopathy evident at this time. Dictated by: Zackery Red MD 05/31/2019 08:33 Electronically signed by Zackery Red MD in [place] 05/31/2019 11:48
[2019-05-30 09:01] LABS: Alanine Aminotransferase 13 U/L (12-78); Albumin Level 3.1 gm/dL (3.4-5.0); Albumin/Globulin Ratio 0.7 (1.1-1.8); Alkaline Phosphatase 102 U/L (46-116); Anion Gap 14.6 mEq/L (5-15); Aspartate Amino Transferase 15 U/L (15-37); Bilirubin,Total 0.4 mg/dL (0.2-1.0); Blood Urea Nitrogen 13 mg/dL (7-18); Calcium 9.1 mg/dL (8.5-10.1); Carbon Dioxide 26 mmol/L (21.0-32.0); Chloride 102 mmol/L (98-107); Creatinine Clearance Estimated 80 mL/min (50-200); Creatinine,Serum 0.94 mg/dL (0.70-1.30); Estimated Glomerular Filt Rate 81 ml/min (>60); GFR (African American) 98 ML/MIN (>60); Globulin 4.4 gm/dl (1.3-3.2); Glucose 113 mg/dL (74-106); Potassium 4.6 mmoL/L (3.5-5.1); Sodium 138 mmol/L (136-145); Total Protein,Serum 7.5 gm/dL (6.4-8.2)
== END 2019-05-30 09:30 | disposition home or self-care (01) ==
LOC: INF 08:43
PROVIDERS: PCP Emergency Medicine; Visit Provider Internal Medicine Medical Oncology
DX: C34.90 Malignant neoplasm of unspecified part of unspecified bronchus or lung (principal); Z03.89 Encounter for observation for other suspected diseases and conditions ruled out
CPT/HCPCS: 71260; 74177; 80053; 85025; J1642; Q9967

== ENCOUNTER 2019-06-02 08:26 | Outpatient (CLI) | payer MEDICARE, SELFPAY ==
[2019-06-02 10:13] VITALS: BP 106/62; PULSE 81; RESP 18; TEMP 36.6; O2SAT 95
[2019-06-02 10:28] VITALS: BP 112/70; PULSE 82; RESP 18
[2019-06-02 10:43] VITALS: BP 110/64; PULSE 73; RESP 18
[2019-06-02 10:58] VITALS: BP 106/63; PULSE 85; RESP 20
== END 2019-06-02 11:15 | disposition home or self-care (01) ==
LOC: INF 08:26
PROVIDERS: Visit Provider Internal Medicine Medical Oncology
DX: Z51.11 Encounter for antineoplastic chemotherapy (principal); C34.81 Malignant neoplasm of overlapping sites of right bronchus and lung
CPT/HCPCS: 96365; 96374; 96411; 96413; J9271; J9305

== ENCOUNTER 2019-06-22 08:12 | Outpatient (CLI) | payer MEDICARE, SELFPAY ==
[2019-06-22 08:25] VITALS: BMI 24.5
[2019-06-22 08:41] LABS: Basophils # 0.1 K/mm3 (0-0.2); Basophils % 0.7 % (0.1-2.0); Eosinophils # 0.1 K/mm3 (0.0-0.4); Eosinophils % 1.3 % (0.1-12.0); Hematocrit 38.3 % (42.0-52.0); Lymphocytes # 1.8 K/mm3 (0.7-4.5); Lymphocytes % 18.6 % (10-50); Mean Corpuscular HGB Conc 31.3 g/dL (31.8-35.4); Mean Corpuscular Hemoglobin 33.6 pg (27.0-31.2); Mean Corpuscular Volume 107.4 fl (80-94); Mean Platelet Volume 8.8 fl (7.4-10.4); Monocytes # 0.9 K/mm3 (0.1-1.0); Monocytes % 9.4 % (1.7-9.3); Neutrophils # 6.8 K/mm3 (1.8-7.8); Platelet Count 468 K/mm3 (142-424); Red Blood Count 3.57 M/mm3 (4.60-6.20); Red Cell Distribution Width 14.7 % (11.5-17.5); White Blood Count 9.7 K/mm3 (4.8-10.8)
[2019-06-22 08:50] LABS: Alanine Aminotransferase 15 U/L (12-78); Albumin Level 3.1 gm/dL (3.4-5.0); Albumin/Globulin Ratio 0.7 (1.1-1.8); Alkaline Phosphatase 107 U/L (46-116); Anion Gap 12.3 mEq/L (5-15); Aspartate Amino Transferase 20 U/L (15-37); Bilirubin,Total 0.4 mg/dL (0.2-1.0); Blood Urea Nitrogen 14 mg/dL (7-18); Calcium 8.9 mg/dL (8.5-10.1); Carbon Dioxide 26 mmol/L (21.0-32.0); Chloride 103 mmol/L (98-107); Creatinine Clearance Estimated 86 mL/min (50-200); Creatinine,Serum 0.89 mg/dL (0.70-1.30); Estimated Glomerular Filt Rate 86 ml/min (>60); GFR (African American) 104 ML/MIN (>60); Globulin 4.3 gm/dl (1.3-3.2); Glucose 99 mg/dL (74-106); Potassium 4.3 mmoL/L (3.5-5.1); Sodium 137 mmol/L (136-145); Total Protein,Serum 7.4 gm/dL (6.4-8.2)
[2019-06-22 10:01] LABS: Thyroid Stimulating Hormone 1.12 uIU/ml (0.358-3.740)
[2019-06-22 10:17] VITALS: BP 107/73; PULSE 88; RESP 18; TEMP 36.6; O2SAT 97
[2019-06-22 10:47] VITALS: BP 107/69; PULSE 79; RESP 18; O2SAT 98
[2019-06-22 11:17] VITALS: BP 110/71; PULSE 79; RESP 18; O2SAT 98
[2019-06-22 11:25] VITALS: BP 118/71; PULSE 83; RESP 18; O2SAT 98
== END 2019-06-22 11:25 | disposition home or self-care (01) ==
LOC: INF 08:12
PROVIDERS: Visit Provider Internal Medicine Medical Oncology
DX: Z51.11 Encounter for antineoplastic chemotherapy (principal); C34.81 Malignant neoplasm of overlapping sites of right bronchus and lung; Z79.899 Other long term (current) drug therapy
CPT/HCPCS: 80053; 82024; 82533; 84443; 85025; 96411; 96413; J1642; J9271; J9305

== ENCOUNTER 2019-07-14 08:23 | Outpatient (CLI) | payer MEDICARE, SELFPAY ==
[2019-07-14 08:24] VITALS: BMI 24.4
[2019-07-14 08:53] LABS: Basophils # 0.1 K/mm3 (0-0.2); Basophils % 0.7 % (0.1-2.0); Eosinophils # 0.1 K/mm3 (0.0-0.4); Eosinophils % 0.6 % (0.1-12.0); Hematocrit 38.7 % (42.0-52.0); Hemoglobin 12.1 g/dL (14.1-18.0); Lymphocytes # 1.7 K/mm3 (0.7-4.5); Lymphocytes % 18.1 % (10-50); Mean Corpuscular HGB Conc 31.4 g/dL (31.8-35.4); Mean Corpuscular Hemoglobin 32.9 pg (27.0-31.2); Mean Corpuscular Volume 104.9 fl (80-94); Mean Platelet Volume 7.7 fl (7.4-10.4); Monocytes # 0.8 K/mm3 (0.1-1.0); Monocytes % 8.4 % (1.7-9.3); Neutrophils # 6.6 K/mm3 (1.8-7.8); Neutrophils % 72.2 % (37.0-80.0); Platelet Count 365 K/mm3 (142-424); Red Blood Count 3.69 M/mm3 (4.60-6.20); Red Cell Distribution Width 14.3 % (11.5-17.5); White Blood Count 9.2 K/mm3 (4.8-10.8)
[2019-07-14 09:03] LABS: Alanine Aminotransferase 14 U/L (12-78); Albumin Level 2.9 gm/dL (3.4-5.0); Albumin/Globulin Ratio 0.7 (1.1-1.8); Alkaline Phosphatase 112 U/L (46-116); Anion Gap 16.2 mEq/L (5-15); Aspartate Amino Transferase 16 U/L (15-37); Bilirubin,Total 0.5 mg/dL (0.2-1.0); Blood Urea Nitrogen 14 mg/dL (7-18); Calcium 8.6 mg/dL (8.5-10.1); Carbon Dioxide 25 mmol/L (21.0-32.0); Chloride 98 mmol/L (98-107); Creatinine Clearance Estimated 78 mL/min (50-200); Creatinine,Serum 1.09 mg/dL (0.70-1.30); Estimated Glomerular Filt Rate 68 ml/min (>60); GFR (African American) 82 ML/MIN (>60); Globulin 4.4 gm/dl (1.3-3.2); Glucose 152 mg/dL (74-106); Potassium 4.2 mmoL/L (3.5-5.1); Sodium 135 mmol/L (136-145); Total Protein,Serum 7.3 gm/dL (6.4-8.2)
[2019-07-14 10:15] VITALS: BP 101/62; PULSE 92; RESP 18; O2SAT 95
[2019-07-14 10:30] VITALS: BP 102/72; PULSE 97; RESP 18
[2019-07-14 10:45] VITALS: BP 104/68; PULSE 79; RESP 18
[2019-07-14 11:00] VITALS: BP 97/64; PULSE 83; RESP 18
[2019-07-14 11:15] VITALS: BP 110/59; PULSE 79; RESP 20
[2019-07-18 16:43] LABS: Adrenocorticotropic Hormone 14.5 pg/mL (7.2-63.3)
== END 2019-07-14 11:35 | disposition home or self-care (01) ==
LOC: INF 08:23
PROVIDERS: Visit Provider Internal Medicine Medical Oncology
DX: Z51.11 Encounter for antineoplastic chemotherapy (principal); C34.81 Malignant neoplasm of overlapping sites of right bronchus and lung; Z79.899 Other long term (current) drug therapy
CPT/HCPCS: 80053; 82024; 82533; 84443; 85025; 96411; 96413; J9271; J9305

== ENCOUNTER 2019-08-03 13:45 | Outpatient (CLI) | payer MEDICARE, SELFPAY ==
[2019-08-03 13:52] VITALS: BMI 23.6
[2019-08-03 14:32] LABS: Basophils # 0.1 K/mm3 (0-0.2); Basophils % 0.9 % (0.1-2.0); Eosinophils # 0.1 K/mm3 (0.0-0.4); Hematocrit 36.5 % (42.0-52.0); Hemoglobin 11.8 g/dL (14.1-18.0); Lymphocytes # 1.6 K/mm3 (0.7-4.5); Lymphocytes % 17.6 % (10-50); Mean Corpuscular HGB Conc 32.3 g/dL (31.8-35.4); Mean Corpuscular Hemoglobin 33.5 pg (27.0-31.2); Mean Corpuscular Volume 103.8 fl (80-94); Mean Platelet Volume 7.8 fl (7.4-10.4); Monocytes # 0.7 K/mm3 (0.1-1.0); Monocytes % 7.7 % (1.7-9.3); Neutrophils # 6.8 K/mm3 (1.8-7.8); Neutrophils % 72.8 % (37.0-80.0); Platelet Count 436 K/mm3 (142-424); Red Blood Count 3.52 M/mm3 (4.60-6.20); Red Cell Distribution Width 14.2 % (11.5-17.5); White Blood Count 9.3 K/mm3 (4.8-10.8)
[2019-08-03 14:47] LABS: Alanine Aminotransferase 11 U/L (12-78); Albumin Level 2.8 gm/dL (3.4-5.0); Albumin/Globulin Ratio 0.7 (1.1-1.8); Alkaline Phosphatase 115 U/L (46-116); Anion Gap 15.3 mEq/L (5-15); Aspartate Amino Transferase 13 U/L (15-37); Bilirubin,Total 0.3 mg/dL (0.2-1.0); Blood Urea Nitrogen 17 mg/dL (7-18); Calcium 8.1 mg/dL (8.5-10.1); Carbon Dioxide 24 mmol/L (21.0-32.0); Chloride 103 mmol/L (98-107); Creatinine Clearance Estimated 83 mL/min (50-200); Creatinine,Serum 1.02 mg/dL (0.70-1.30); Estimated Glomerular Filt Rate 73 ml/min (>60); GFR (African American) 89 ML/MIN (>60); Globulin 4.3 gm/dl (1.3-3.2); Glucose 135 mg/dL (74-106); Potassium 4.3 mmoL/L (3.5-5.1); Sodium 138 mmol/L (136-145); Thyroid Stimulating Hormone 0.69 uIU/ml (0.358-3.740); Total Protein,Serum 7.1 gm/dL (6.4-8.2)
== END 2019-08-03 14:10 | disposition home or self-care (01) ==
LOC: INF 13:50
PROVIDERS: Visit Provider Internal Medicine Medical Oncology
DX: C34.81 Malignant neoplasm of overlapping sites of right bronchus and lung (principal); Z79.899 Other long term (current) drug therapy
CPT/HCPCS: 80053; 82533; 84443; 85025; J1642

== ENCOUNTER → 2019-08-04 08:20 | Outpatient (CLI) | payer MEDICARE, SELFPAY ==
[2019-08-04 08:24] VITALS: BMI 23.1
[2019-08-04 09:10] VITALS: BP 96/68; PULSE 92; RESP 18
[2019-08-04 09:30] VITALS: BP 119/67; PULSE 77; RESP 18
[2019-08-04 10:02] VITALS: BP 111/57; PULSE 83; RESP 18
[2019-08-04 10:17] VITALS: BP 108/69; PULSE 78; RESP 18
[2019-08-04 10:30] VITALS: BP 100/72; PULSE 78; RESP 18
[2019-08-08 16:11] LABS: Adrenocorticotropic Hormone 18.1 pg/mL (7.2-63.3)
== END ==
PROVIDERS: Visit Provider Internal Medicine Medical Oncology
DX: C34.81 Malignant neoplasm of overlapping sites of right bronchus and lung (principal); Z51.11 Encounter for antineoplastic chemotherapy
CPT/HCPCS: 82024; 96411; 96413; J1642; J9271; J9305

== ENCOUNTER → 2019-08-22 08:49 | Outpatient (CLI) | payer MEDICARE, SELFPAY ==
[2019-08-22 08:30] VITALS: BMI 23.1
[2019-08-22 09:02] LABS: Basophils # 0.1 K/mm3 (0-0.2); Basophils % 0.7 % (0.1-2.0); Eosinophils # 0.1 K/mm3 (0.0-0.4); Eosinophils % 1.4 % (0.1-12.0); Hematocrit 36.6 % (42.0-52.0); Hemoglobin 11.7 g/dL (14.1-18.0); Lymphocytes # 1.8 K/mm3 (0.7-4.5); Lymphocytes % 22.3 % (10-50); Mean Corpuscular HGB Conc 31.8 g/dL (31.8-35.4); Mean Corpuscular Hemoglobin 32.8 pg (27.0-31.2); Mean Corpuscular Volume 103.1 fl (80-94); Mean Platelet Volume 7.7 fl (7.4-10.4); Monocytes # 0.7 K/mm3 (0.1-1.0); Monocytes % 8.5 % (1.7-9.3); Neutrophils # 5.3 K/mm3 (1.8-7.8); Neutrophils % 67.1 % (37.0-80.0); Platelet Count 475 K/mm3 (142-424); Red Blood Count 3.55 M/mm3 (4.60-6.20); Red Cell Distribution Width 14.3 % (11.5-17.5); White Blood Count 7.9 K/mm3 (4.8-10.8)
--- NOTE | 2019-08-22 09:09 | CT_ITS ---
PROCEDURE: CT CHEST W CON CLINCAL INDICATION: LUNG CA COMPARISON: CT CHEST W CON from 05/30/2019 CT ABDOMEN PELVIS W CON from 08/22/2019 TECHNIQUE: IV Contrast: 75ml Optiray 350 Axial images obtained with sagittal and coronal reformats. All CT scans at the facility use one or more dose reduction, viz: automated exposure control, ma/kV adjustment per patient size (including targeted exams where dose is matched to indication, i.e. head), or iterative reconstruction technique. FINDINGS: HEART,AORTA,PULMONARY ARTERIES coronary arterial calcifications are noted. MEDIASTINAL AND HILAR STRUCTURES: No mediastinal or hilar mass evident. No dominant adenopathy. LUNGS: Lungs are emphysematous. Numerous bilateral pulmonary opacities are noted not significantly changed and felt to be chronic. Calcified granuloma is seen in the right upper lobe. Prominent increased interstitial densities are seen in the left upper lobe adjacent to the oblique fissure. Pleural thickening along the posterior medial inferior right chest wall is again noted appearing decreased over the interval. . PLEURAL SPACES: A small right pleural effusion is noted decreased over the interval BONY STRUCTURES: No acute bony abnormalities apparent. LYMPH NODES: No enlarged lymph nodes evident. UPPER ABDOMEN: Please see abdominal CT report. ADDITIONAL FINDINGS: No other significant abnormalities. IMPRESSION: COPD with chronic bilateral pulmonary opacities. Decrease in right pleural thickening and pleural effusion with small residual. No superimposed acute cardiopulmonary findings. Dictated by: Zhang Sears 08/22/2019 11:47 Electronically signed by Zhang Sears in [place] 08/22/2019 11:47
--- NOTE | 2019-08-22 09:09 | CT_ITS ---
PROCEDURE: CT ABDOMEN PELVIS W CON CLINICAL INDICATION: LUNG CA COMPARISON: CT ABDOMEN PELVIS W CON from 05/30/2019 TECHNIQUE: IV Contrast: 05/30/2019 Oral Contrast 20ml Gastroview Axial images obtained with sagittal and coronal reformats. All CT scans at the facility use one or more dose reduction, viz: automated exposure control, ma/kV adjustment per patient size (including targeted exams where dose is matched to indication, i.e. head), or iterative reconstruction technique. FINDINGS: LOWER THORAX: The visualized lung bases are emphysematous. There are chronic increased interstitial densities in both lung bases. There is some pleural thickening along the posterior medial inferior right hemithorax measuring up to 10 millimeters as seen on image 1 series 5. There has been an interval decrease in right pleural effusion. ABDOMEN & PELVIS: There is mild fatty infiltration of the liver. There is cholelithiasis without ancillary findings of acute cholecystitis. Mild enlargement of the left adrenal gland which remains adreniform is noted. Interval stability would favor a benign process. 1.5 centimeter cortical cyst of left kidney is noted. Otherwise, the liver, spleen, pancreas, adrenal glands, and kidneys show no acute finding. No intestinal obstruction or free air. There is the appearance of wall thickening of the transverse duodenum. This could be due to inflammation or be nonpathological due to incomplete luminal distention. There is diverticulosis greatest in the left colon. Wall thickening of the sigmoid colon is nonspecific and may be due to nondistention. No inflammatory stranding of adjacent fat planes is apparent. No pelvic mass, abnormal fluid collection, or focal inflammatory change of the pelvis. Dystrophic calcifications are seen in the prostate. No acute bony anomalies. Postsurgical changes are again noted involving the lumbar spine. Chronic compression deformity of L1 is again noted. There is atherosclerosis with ectasia of the infrarenal abdominal aorta which measures 2.8 centimeters. IMPRESSION: Chronic interstitial pneumonitis in both lung bases with COPD with small right pleural effusion decreased over the interval and right pleural thickening. Wall thickening of transverse duodenum and left colon. Inflammation of the structures is not excluded. The findings may be nonpathological. Clinical correlation recommended. Otherwise the no acute intra-abdominal/pelvic finding. Dictated by: Zhang Sears 08/22/2019 11:34 Electronically signed by Zhang Sears in [place] 08/22/2019 11:34
[2019-08-22 09:14] LABS: Alanine Aminotransferase 11 U/L (12-78); Albumin Level 2.7 gm/dL (3.4-5.0); Albumin/Globulin Ratio 0.6 (1.1-1.8); Alkaline Phosphatase 107 U/L (46-116); Anion Gap 14.7 mEq/L (5-15); Aspartate Amino Transferase 15 U/L (15-37); Bilirubin,Total 0.5 mg/dL (0.2-1.0); Blood Urea Nitrogen 16 mg/dL (7-18); Calcium 8.2 mg/dL (8.5-10.1); Carbon Dioxide 26 mmol/L (21.0-32.0); Chloride 103 mmol/L (98-107); Creatinine Clearance Estimated 76 mL/min (50-200); Creatinine,Serum 1.06 mg/dL (0.70-1.30); Estimated Glomerular Filt Rate 70 ml/min (>60); GFR (African American) 85 ML/MIN (>60); Globulin 4.2 gm/dl (1.3-3.2); Glucose 108 mg/dL (74-106); Potassium 3.7 mmoL/L (3.5-5.1); Sodium 140 mmol/L (136-145); Total Protein,Serum 6.9 gm/dL (6.4-8.2)
== END ==
PROVIDERS: PCP Emergency Medicine; Visit Provider Internal Medicine Medical Oncology
DX: C34.81 Malignant neoplasm of overlapping sites of right bronchus and lung (principal); Z03.89 Encounter for observation for other suspected diseases and conditions ruled out
CPT/HCPCS: 71260; 74177; 80053; 85025; J1642; Q9967

== ENCOUNTER → 2019-08-28 09:16 | Outpatient (POV) | payer MEDICARE, SELFPAY ==
[2019-08-28 09:24] VITALS: BP 122/86; PULSE 94; RESP 18; O2SAT 98; BMI 24.4
--- NOTE | 2019-08-29 08:44 | HMH.PMCON ---
Assessment and Plan (1) Postlaminectomy syndrome Current visit: Yes Status: Chronic Category: Medical Code(s): M96.1 - Postlaminectomy syndrome, not elsewhere classified (2) Lumbosacral radiculopathy due to degenerative joint disease of spine Current visit: Yes Status: Chronic Category: Medical Code(s): M47.27 - Other spondylosis with radiculopathy, lumbosacral region - Assessment and plan all Dx Assessment and Plan for all problems:: Patient and I had a long discussion in regards to treatment options. We will start with an epidural steroid injection to see if this is beneficial for the patient. Patient and I also briefly discussed implantable therapies that may be beneficial in the future. I will follow-up with him after his injection reassess his symptoms at that time he is not on any anticoagulation therapy. He is continuing a home stretching program. Dr. Dixon has reviewed this note and agrees with this plan of care. This note was dictated using voice recognition software and may contain errors or omissions HPI - Data of Consult Consult date: 08/28/19 Requesting Physician: Yumiko Phipps APRN Primary Care Provider: Cory Dykes MD - Consult Narrative Reason for consult: Back pain, leg pain History of present illness: Mr. Townsend is a 64 year old male who presents today for consultation in regards to his low back and leg pain. Patient has had 4 lower back surgeries last one being in [address] Jeffery. Patient states that he has had pain ever since mostly in his low back and down his legs. He rates it a 7 out of 10 today. Patient is unsure which levels he had fused however he knows that it never stopped the pain. Patient has continual numbness in his bilateral legs and feet. Patient has had epidurals in the past prior to surgery with some moderate relief however he has not had them since. He is tried and failed multiple medications including Celebrex, Flexeril, Valium, Lortab, Motrin, Skelaxin, Enbrel. Patient's done physical therapy in the past however that was not beneficial for him. Patient I had a long discussion in regards to treatments that we can offer him. I did discuss with him beginning with an epidural steroid injection and he is interested in pursuing this. CC: Yumiko Phipps APRN [facility] History I have reviewed the patient's past medical history: Yes Medical History: Reports:: Arrhythmia, Atrial Fibrillation, Cancer, Chronic Obstructive Pulmonary Disease (COPD), Gastroesophageal Reflux Disease(GERD), Kidney Stones Denies:: Diabetes Mellitus Type 1, Diabetes Mellitus Type 2, Internal Pacemaker, MRSA, Seizures *Have you ever received a pneumonia vaccine?: Yes *Have you received a flu vaccine this season?: Yes Other Medical History: Reports: Arthritis, Sinus Problems. Denies: Blood Transfusion Reaction Laterality Cases: Right: Carpal Tunnel Release, Bilateral: Arthroscopy Knee, Arthroscopy Shoulder Other Surgeries: Yes: Appendectomy, Cardiac Catheterization, Colonoscopy, Other (Lumbar fusion, multiple back sx, Right CTR, ). No: Pacemaker Amputation: No Fractures: No - *Social History Smoking Status: Current every day smoker Tobacco Type: cigarettes # Packs/Day (cigarettes): 1 #Yrs smoked (if former smoker): 50 Alcohol Intake: never Alcohol Intake Frequency:: other Substance Use Type: denies use *Occupational Status:: other Housing: house Household Members: family *Travel in the last 8 weeks: None Family Hx:: Diabetes, Stroke Review of Systems - Review of Systems ROS General: no recent weight change, no fever, no sleep disturbances Respiratory: no cough, no shortness of air, no recurring pulmonary infections Cardiovascular/Peripheral Vascular: No chest pain, No palpitations, no edema, no shortness of breath. Gastrointestinal: no new onset incontinence, normal bowel movements reported Genitourinary: no new onset incontinence Musculoskeletal: Back pain, leg pain Psy
== END ==
PROVIDERS: PCP Internal Medicine Adolescent Medicine; Visit Provider Clinical Nurse Specialist Family Health
DX: M96.1 Postlaminectomy syndrome, not elsewhere classified (principal); M47.27 Other spondylosis with radiculopathy, lumbosacral region; Z79.899 Other long term (current) drug therapy; Z79.82 Long term (current) use of aspirin; Z72.0 Tobacco use; J44.9 Chronic obstructive pulmonary disease, unspecified
CPT/HCPCS: 99202

== ENCOUNTER 2019-09-01 09:45 | Outpatient (CLI) | payer MEDICARE, SELFPAY ==
[2019-09-01 10:38] VITALS: BP 94/69; PULSE 78; RESP 18; TEMP 36.6; O2SAT 100
[2019-09-01 10:55] VITALS: BP 101/68; PULSE 78; RESP 18; O2SAT 97
[2019-09-01 11:10] VITALS: BP 106/73; PULSE 80; RESP 18; O2SAT 97
[2019-09-01 11:50] VITALS: BP 116/69; PULSE 70; RESP 18; O2SAT 97
== END 2019-09-01 11:50 | disposition home or self-care (01) ==
LOC: INF 09:52
PROVIDERS: Visit Provider Internal Medicine Medical Oncology
DX: C34.81 Malignant neoplasm of overlapping sites of right bronchus and lung (principal)
CPT/HCPCS: 96372; 96411; 96413; J1642; J9271; J9305

== ENCOUNTER 2019-09-22 08:30 | Outpatient (CLI) | payer MEDICARE, SELFPAY ==
[2019-09-22 08:40] VITALS: BMI 23.7
[2019-09-22 09:08] LABS: Basophils # 0.1 K/mm3 (0-0.2); Basophils % 0.7 % (0.1-2.0); Eosinophils # 0.1 K/mm3 (0.0-0.4); Eosinophils % 1.2 % (0.1-12.0); Hematocrit 38.6 % (42.0-52.0); Hemoglobin 12.3 g/dL (14.1-18.0); Lymphocytes # 1.8 K/mm3 (0.7-4.5); Lymphocytes % 17.1 % (10-50); Mean Corpuscular HGB Conc 31.9 g/dL (31.8-35.4); Mean Corpuscular Hemoglobin 33.2 pg (27.0-31.2); Mean Corpuscular Volume 104.1 fl (80-94); Mean Platelet Volume 8.1 fl (7.4-10.4); Monocytes # 0.7 K/mm3 (0.1-1.0); Monocytes % 6.4 % (1.7-9.3); Neutrophils # 7.8 K/mm3 (1.8-7.8); Neutrophils % 74.7 % (37.0-80.0); Platelet Count 312 K/mm3 (142-424); Red Blood Count 3.71 M/mm3 (4.60-6.20); Red Cell Distribution Width 14.4 % (11.5-17.5); White Blood Count 10.5 K/mm3 (4.8-10.8)
[2019-09-22 09:10] LABS: Chloride 102 mmol/L (98-107)
[2019-09-22 09:11] LABS: Potassium 4.5 mmoL/L (3.5-5.1); Sodium 136 mmol/L (136-145)
[2019-09-22 09:13] LABS: Alanine Aminotransferase 17 U/L (12-78); Alkaline Phosphatase 100 U/L (38-126); Aspartate Amino Transferase 25 U/L (17-59); Bilirubin,Total 0.4 mg/dl (0.2-1.3); Blood Urea Nitrogen 21 mg/dl (9-20); Creatinine Clearance Estimated 83 mL/min (50-200); Estimated Glomerular Filt Rate 113 ml/min (>60); GFR (African American) 137 ML/MIN (>60)
[2019-09-22 09:14] LABS: Albumin/Globulin Ratio 1.2 (1.1-1.8); Anion Gap 14.5 mEq/L (5-15); Calcium 9.2 mg/dl (8.4-10.2); Carbon Dioxide 24 mmol/L (22.0-30.0); Globulin 3.4 g/dL (1.3-3.2); Glucose 103 mg/dl (74-100); Total Protein,Serum 7.4 g/dl (6.3-8.2)
[2019-09-22 09:44] LABS: Thyroid Stimulating Hormone 1.85 uIU/mL (0.465-4.68)
[2019-09-22 10:35] VITALS: BP 120/63; PULSE 79; RESP 18; TEMP 36.3
[2019-09-22 10:50] VITALS: BP 126/77; PULSE 83; RESP 18
[2019-09-22 11:05] VITALS: BP 127/76; PULSE 71; RESP 18
[2019-09-22 11:20] VITALS: BP 130/87; PULSE 79; RESP 18
[2019-09-22 11:35] VITALS: BP 128/81; PULSE 74; RESP 18
[2019-09-22 11:45] VITALS: BP 129/77; PULSE 85; RESP 18
[2019-09-26 08:02] LABS: Adrenocorticotropic Hormone 19.3 pg/mL (7.2-63.3)
== END 2019-09-22 11:55 | disposition home or self-care (01) ==
LOC: INF 08:38
PROVIDERS: Visit Provider Internal Medicine Medical Oncology
DX: Z51.11 Encounter for antineoplastic chemotherapy (principal); C34.81 Malignant neoplasm of overlapping sites of right bronchus and lung; Z79.899 Other long term (current) drug therapy
CPT/HCPCS: 80053; 82024; 82533; 84443; 85025; 96411; 96413; J1642; J9271; J9305

== ENCOUNTER 2019-10-20 08:31 | Outpatient (CLI) | payer MEDICARE, SELFPAY ==
[2019-10-20 08:33] VITALS: BMI 23.3
[2019-10-20 08:55] LABS: Basophils # 0.1 K/mm3 (0-0.2); Basophils % 0.7 % (0.1-2.0); Eosinophils # 0.4 K/mm3 (0.0-0.4); Eosinophils % 3.4 % (0.1-12.0); Hematocrit 35.8 % (42.0-52.0); Hemoglobin 11.3 g/dL (14.1-18.0); Lymphocytes # 2.4 K/mm3 (0.7-4.5); Lymphocytes % 20.1 % (10-50); Mean Corpuscular HGB Conc 31.4 g/dL (31.8-35.4); Mean Corpuscular Hemoglobin 33.4 pg (27.0-31.2); Mean Corpuscular Volume 106.5 fl (80-94); Mean Platelet Volume 8.7 fl (7.4-10.4); Monocytes # 0.9 K/mm3 (0.1-1.0); Monocytes % 7.5 % (1.7-9.3); Neutrophils # 8.2 K/mm3 (1.8-7.8); Neutrophils % 68.4 % (37.0-80.0); Platelet Count 335 K/mm3 (142-424); Red Blood Count 3.37 M/mm3 (4.60-6.20); Red Cell Distribution Width 14.9 % (11.5-17.5)
[2019-10-20 09:02] LABS: Chloride 104 mmol/L (98-107); Sodium 137 mmol/L (136-145)
[2019-10-20 09:04] LABS: Blood Urea Nitrogen 16 mg/dl (9-20); Creatinine Clearance Estimated 81 mL/min (50-200); Estimated Glomerular Filt Rate 97 ml/min (>60); GFR (African American) 117 ML/MIN (>60)
[2019-10-20 09:05] LABS: Alanine Aminotransferase 16 U/L (12-78); Albumin Level 3.6 g/dl (3.5-5.0); Albumin/Globulin Ratio 1.1 (1.1-1.8); Alkaline Phosphatase 85 U/L (38-126); Aspartate Amino Transferase 25 U/L (17-59); Bilirubin,Total 0.4 mg/dl (0.2-1.3); Calcium 8.8 mg/dl (8.4-10.2); Carbon Dioxide 23 mmol/L (22.0-30.0); Globulin 3.3 g/dL (1.3-3.2); Glucose 104 mg/dl (74-100); Total Protein,Serum 6.9 g/dl (6.3-8.2)
[2019-10-20 09:36] LABS: Thyroid Stimulating Hormone 2.81 uIU/mL (0.465-4.68)
[2019-10-20 10:13] VITALS: BP 96/67; PULSE 75; RESP 18; TEMP 36.6; O2SAT 97
[2019-10-20 10:43] VITALS: BP 105/59; PULSE 78; RESP 18; O2SAT 98
[2019-10-20 11:15] VITALS: BP 94/69; PULSE 69; RESP 18; O2SAT 98
== END 2019-10-20 11:15 | disposition home or self-care (01) ==
LOC: INF 08:31
PROVIDERS: Visit Provider Internal Medicine Medical Oncology
DX: Z51.11 Encounter for antineoplastic chemotherapy (principal); C34.81 Malignant neoplasm of overlapping sites of right bronchus and lung; Z79.899 Other long term (current) drug therapy; Z72.0 Tobacco use
CPT/HCPCS: 80053; 82024; 82533; 84443; 85025; 96411; 96413; J1642; J9271; J9305

== ENCOUNTER 2019-11-09 09:11 | Outpatient (CLI) | payer MEDICARE, SELFPAY ==
[2019-11-09 09:14] VITALS: BMI 23.3
[2019-11-09 09:34] LABS: Basophils # 0.1 K/mm3 (0-0.2); Basophils % 0.8 % (0.1-2.0); Eosinophils # 0.4 K/mm3 (0.0-0.4); Eosinophils % 3.6 % (0.1-12.0); Hemoglobin 11.4 g/dL (14.1-18.0); Lymphocytes # 1.7 K/mm3 (0.7-4.5); Lymphocytes % 16.1 % (10-50); Mean Corpuscular HGB Conc 31.7 g/dL (31.8-35.4); Mean Corpuscular Hemoglobin 33.1 pg (27.0-31.2); Mean Corpuscular Volume 104.3 fl (80-94); Mean Platelet Volume 8.6 fl (7.4-10.4); Monocytes # 0.8 K/mm3 (0.1-1.0); Monocytes % 7.5 % (1.7-9.3); Neutrophils # 7.6 K/mm3 (1.8-7.8); Platelet Count 461 K/mm3 (142-424); Red Blood Count 3.45 M/mm3 (4.60-6.20); Red Cell Distribution Width 14.8 % (11.5-17.5); White Blood Count 10.5 K/mm3 (4.8-10.8)
[2019-11-09 09:37] LABS: Chloride 108 mmol/L (98-107); Potassium 4.2 mmoL/L (3.5-5.1); Sodium 135 mmol/L (136-145)
[2019-11-09 09:39] LABS: Alanine Aminotransferase 13 U/L (12-78); Alkaline Phosphatase 86 U/L (38-126); Aspartate Amino Transferase 25 U/L (17-59); Bilirubin,Total 0.4 mg/dl (0.2-1.3); Blood Urea Nitrogen 19 mg/dl (9-20); Creatinine Clearance Estimated 81 mL/min (50-200); Estimated Glomerular Filt Rate 97 ml/min (>60); GFR (African American) 117 ML/MIN (>60)
[2019-11-09 09:40] LABS: Albumin Level 3.5 g/dl (3.5-5.0); Albumin/Globulin Ratio 0.9 (1.1-1.8); Calcium 9.1 mg/dl (8.4-10.2); Globulin 3.7 g/dL (1.3-3.2); Glucose 114 mg/dl (74-100); Total Protein,Serum 7.2 g/dl (6.3-8.2)
[2019-11-09 09:55] LABS: Anion Gap 5.2 mEq/L (5-15); Carbon Dioxide 26 mmol/L (22.0-30.0)
[2019-11-09 10:11] LABS: Thyroid Stimulating Hormone 0.77 uIU/mL (0.465-4.68)
[2019-11-09 11:20] VITALS: BP 131/93; PULSE 93; RESP 20; TEMP 36.6; O2SAT 99
[2019-11-09 11:35] VITALS: BP 140/45; PULSE 87; RESP 20
[2019-11-09 11:50] VITALS: BP 136/86; PULSE 91; RESP 20
[2019-11-09 12:07] VITALS: BP 145/96; PULSE 74; RESP 20
[2019-11-09 12:24] VITALS: BP 139/91; PULSE 69; RESP 20; O2SAT 95
== END 2019-11-09 12:24 | disposition home or self-care (01) ==
LOC: INF 09:11
PROVIDERS: Visit Provider Internal Medicine Medical Oncology
DX: Z51.11 Encounter for antineoplastic chemotherapy (principal); C34.81 Malignant neoplasm of overlapping sites of right bronchus and lung; Z79.899 Other long term (current) drug therapy; F17.210 Nicotine dependence, cigarettes, uncomplicated
CPT/HCPCS: 80053; 84443; 85025; 96411; 96413; J1642; J9271; J9305

== ENCOUNTER 2019-12-01 08:25 | Outpatient (CLI) | payer MEDICARE, SELFPAY ==
[2019-12-01 08:36] VITALS: BMI 23.3
[2019-12-01 09:08] LABS: Basophils # 0.1 K/mm3 (0-0.2); Basophils % 0.8 % (0.1-2.0); Eosinophils # 0.4 K/mm3 (0.0-0.4); Hematocrit 35.6 % (42.0-52.0); Hemoglobin 11.4 g/dL (14.1-18.0); Lymphocytes # 1.9 K/mm3 (0.7-4.5); Lymphocytes % 16.5 % (10-50); Mean Corpuscular HGB Conc 32.2 g/dL (31.8-35.4); Mean Corpuscular Hemoglobin 34.4 pg (27.0-31.2); Mean Corpuscular Volume 106.9 fl (80-94); Mean Platelet Volume 8.3 fl (7.4-10.4); Monocytes % 8.3 % (1.7-9.3); Neutrophils # 8.3 K/mm3 (1.8-7.8); Neutrophils % 71.3 % (37.0-80.0); Platelet Count 433 K/mm3 (142-424); Red Blood Count 3.33 M/mm3 (4.60-6.20); Red Cell Distribution Width 14.1 % (11.5-17.5); White Blood Count 11.6 K/mm3 (4.8-10.8)
[2019-12-01 09:20] LABS: Alanine Aminotransferase 12 U/L (12-78); Albumin Level 3.7 g/dl (3.5-5.0); Alkaline Phosphatase 110 U/L (38-126); Anion Gap 12.5 mEq/L (5-15); Aspartate Amino Transferase 32 U/L (17-59); Bilirubin,Total 0.6 mg/dl (0.2-1.3); Blood Urea Nitrogen 15 mg/dl (9-20); Calcium 8.9 mg/dl (8.4-10.2); Carbon Dioxide 25 mmol/L (22.0-30.0); Chloride 100 mmol/L (98-107); Creatinine Clearance Estimated 81 mL/min (50-200); Estimated Glomerular Filt Rate 97 ml/min (>60); GFR (African American) 117 ML/MIN (>60); Globulin 3.8 g/dL (1.3-3.2); Glucose 115 mg/dl (74-100); Potassium 4.5 mmoL/L (3.5-5.1); Sodium 133 mmol/L (136-145); Total Protein,Serum 7.5 g/dl (6.3-8.2)
[2019-12-01 09:51] LABS: Thyroid Stimulating Hormone 2.13 uIU/mL (0.465-4.68)
[2019-12-01 10:35] VITALS: BP 89/61; PULSE 67; RESP 18; TEMP 36.8; O2SAT 95
[2019-12-01 10:50] VITALS: BP 106/65; PULSE 62; RESP 18
[2019-12-01 11:05] VITALS: BP 113/64; PULSE 70; RESP 18
[2019-12-01 11:20] VITALS: BP 109/67; PULSE 66; RESP 18
[2019-12-01 11:35] VITALS: BP 105/65; PULSE 75; RESP 18
== END 2019-12-01 11:45 | disposition home or self-care (01) ==
LOC: INF 08:34
PROVIDERS: Visit Provider Internal Medicine Medical Oncology
DX: Z51.11 Encounter for antineoplastic chemotherapy (principal); C34.81 Malignant neoplasm of overlapping sites of right bronchus and lung; Z79.899 Other long term (current) drug therapy; F17.210 Nicotine dependence, cigarettes, uncomplicated
CPT/HCPCS: 80053; 84443; 85025; 96411; 96413; J1642; J9271; J9305

== ENCOUNTER 2019-12-21 08:05 | Outpatient (CLI) | payer MEDICARE, SELFPAY ==
[2019-12-21 08:15] VITALS: BMI 23.6
[2019-12-21 08:53] LABS: Basophils # 0.1 K/mm3 (0-0.2); Basophils % 0.6 % (0.1-2.0); Chloride 102 mmol/L (98-107); Eosinophils # 0.3 K/mm3 (0.0-0.4); Eosinophils % 2.5 % (0.1-12.0); Hematocrit 35.9 % (42.0-52.0); Hemoglobin 11.3 g/dL (14.1-18.0); Lymphocytes # 1.8 K/mm3 (0.7-4.5); Mean Corpuscular HGB Conc 31.4 g/dL (31.8-35.4); Mean Corpuscular Hemoglobin 33.8 pg (27.0-31.2); Mean Corpuscular Volume 107.5 fl (80-94); Mean Platelet Volume 7.9 fl (7.4-10.4); Monocytes % 9.1 % (1.7-9.3); Neutrophils # 7.5 K/mm3 (1.8-7.8); Neutrophils % 70.9 % (37.0-80.0); Platelet Count 441 K/mm3 (142-424); Red Blood Count 3.34 M/mm3 (4.60-6.20); Red Cell Distribution Width 14.4 % (11.5-17.5); White Blood Count 10.6 K/mm3 (4.8-10.8)
[2019-12-21 08:54] LABS: Potassium 4.3 mmoL/L (3.5-5.1); Sodium 133 mmol/L (136-145)
[2019-12-21 08:56] LABS: Alanine Aminotransferase 15 U/L (12-78); Alkaline Phosphatase 134 U/L (38-126); Aspartate Amino Transferase 30 U/L (17-59); Bilirubin,Total 0.6 mg/dl (0.2-1.3); Blood Urea Nitrogen 14 mg/dl (9-20); Creatinine Clearance Estimated 82 mL/min (50-200); Estimated Glomerular Filt Rate 97 ml/min (>60); GFR (African American) 117 ML/MIN (>60)
[2019-12-21 08:57] LABS: Albumin Level 3.5 g/dl (3.5-5.0); Albumin/Globulin Ratio 0.9 (1.1-1.8); Anion Gap 10.3 mEq/L (5-15); Calcium 8.8 mg/dl (8.4-10.2); Carbon Dioxide 25 mmol/L (22.0-30.0); Globulin 3.8 g/dL (1.3-3.2); Glucose 150 mg/dl (74-100); Total Protein,Serum 7.3 g/dl (6.3-8.2)
[2019-12-21 09:28] LABS: Thyroid Stimulating Hormone 1.49 uIU/mL (0.465-4.68)
[2019-12-21 10:15] VITALS: BP 105/57; PULSE 51; RESP 20; TEMP 36.4; O2SAT 93
[2019-12-21 10:30] VITALS: BP 99/57; PULSE 77; RESP 20
[2019-12-21 10:45] VITALS: BP 97/56; PULSE 73; RESP 20
[2019-12-21 11:00] VITALS: BP 89/58; PULSE 77; RESP 18
[2019-12-21 11:15] VITALS: BP 111/60; PULSE 69; RESP 18
== END 2019-12-21 11:25 | disposition home or self-care (01) ==
LOC: INF 08:12
PROVIDERS: Visit Provider Internal Medicine Medical Oncology
DX: Z51.11 Encounter for antineoplastic chemotherapy (principal); C34.81 Malignant neoplasm of overlapping sites of right bronchus and lung; Z79.899 Other long term (current) drug therapy
CPT/HCPCS: 80053; 82533; 84443; 85025; 96411; 96413; J1642; J9271; J9305

== ENCOUNTER 2020-01-11 09:42 | Outpatient (CLI) | payer MEDICARE, SELFPAY ==
[2020-01-11 09:44] VITALS: BMI 23.3
[2020-01-11 10:11] LABS: Basophils # 0.1 K/mm3 (0-0.2); Basophils % 0.8 % (0.1-2.0); Eosinophils # 0.2 K/mm3 (0.0-0.4); Eosinophils % 2.1 % (0.1-12.0); Hematocrit 36.5 % (42.0-52.0); Hemoglobin 11.4 g/dL (14.1-18.0); Lymphocytes # 1.7 K/mm3 (0.7-4.5); Lymphocytes % 14.9 % (10-50); Mean Corpuscular HGB Conc 31.2 g/dL (31.8-35.4); Mean Corpuscular Volume 108.9 fl (80-94); Mean Platelet Volume 7.5 fl (7.4-10.4); Monocytes # 0.9 K/mm3 (0.1-1.0); Monocytes % 8.1 % (1.7-9.3); Neutrophils # 8.6 K/mm3 (1.8-7.8); Neutrophils % 74.3 % (37.0-80.0); Platelet Count 484 K/mm3 (142-424); Red Blood Count 3.35 M/mm3 (4.60-6.20); Red Cell Distribution Width 14.2 % (11.5-17.5); White Blood Count 11.6 K/mm3 (4.8-10.8)
[2020-01-11 10:12] LABS: Chloride 102 mmol/L (98-107)
[2020-01-11 10:13] LABS: Potassium 4.1 mmoL/L (3.5-5.1); Sodium 133 mmol/L (136-145)
[2020-01-11 10:15] LABS: Alanine Aminotransferase 18 U/L (12-78); Aspartate Amino Transferase 27 U/L (17-59); Bilirubin,Total 0.7 mg/dl (0.2-1.3); Blood Urea Nitrogen 18 mg/dl (9-20); Creatinine Clearance Estimated 81 mL/min (50-200); Estimated Glomerular Filt Rate 75 ml/min (>60); GFR (African American) 91 ML/MIN (>60)
[2020-01-11 10:16] LABS: Albumin Level 3.5 g/dl (3.5-5.0); Albumin/Globulin Ratio 0.9 (1.1-1.8); Alkaline Phosphatase 142 U/L (38-126); Anion Gap 10.1 mEq/L (5-15); Calcium 8.4 mg/dl (8.4-10.2); Carbon Dioxide 25 mmol/L (22.0-30.0); Globulin 3.9 g/dL (1.3-3.2); Glucose 196 mg/dl (74-100); Total Protein,Serum 7.4 g/dl (6.3-8.2)
[2020-01-11 10:47] LABS: Thyroid Stimulating Hormone 4.59 uIU/mL (0.465-4.68)
--- NOTE | 2020-01-11 11:34 | PC.NURSE ---
01/11/2020 1100-pt returned from md appt with oncologist. pt to get tx
[2020-01-11 11:45] VITALS: BP 124/84; PULSE 80; RESP 18; TEMP 36.4; O2SAT 96
[2020-01-11 12:15] VITALS: BP 110/69; PULSE 78; RESP 18; O2SAT 97
[2020-01-11 12:30] VITALS: BP 121/78; PULSE 77; RESP 18; O2SAT 96
[2020-01-11 12:54] VITALS: BP 127/81; PULSE 81; RESP 18; O2SAT 100
[2020-01-12 17:11] LABS: Adrenocorticotropic Hormone 12.3 pg/mL (7.2-63.3)
== END 2020-01-11 12:54 | disposition home or self-care (01) ==
LOC: INF 09:42
PROVIDERS: Visit Provider Internal Medicine Medical Oncology
DX: Z51.11 Encounter for antineoplastic chemotherapy (principal); C34.81 Malignant neoplasm of overlapping sites of right bronchus and lung; Z79.899 Other long term (current) drug therapy
CPT/HCPCS: 80053; 82024; 82533; 84443; 85025; 96411; 96413; J1642; J9271; J9305

== ENCOUNTER 2020-02-05 08:49 | Outpatient (CLI) | payer MEDICARE, SELFPAY ==
[2020-02-05 08:32] VITALS: BMI 23.0
[2020-02-05 08:56] LABS: Basophils # 0.1 K/mm3 (0-0.2); Eosinophils # 0.2 K/mm3 (0.0-0.4); Eosinophils % 1.6 % (0.1-12.0); Hematocrit 37.9 % (42.0-52.0); Hemoglobin 12.6 g/dL (14.1-18.0); Lymphocytes # 2.5 K/mm3 (0.7-4.5); Mean Corpuscular HGB Conc 33.4 g/dL (31.8-35.4); Mean Corpuscular Hemoglobin 35.3 pg (27.0-31.2); Mean Corpuscular Volume 105.5 fl (80-94); Monocytes # 1.1 K/mm3 (0.1-1.0); Monocytes % 7.3 % (1.7-9.3); Neutrophils # 10.8 K/mm3 (1.8-7.8); Neutrophils % 73.1 % (37.0-80.0); Platelet Count 555 K/mm3 (142-424); Red Blood Count 3.59 M/mm3 (4.60-6.20); Red Cell Distribution Width 14.9 % (11.5-17.5); White Blood Count 14.8 K/mm3 (4.8-10.8)
--- NOTE | 2020-02-05 08:56 | CT_ITS ---
PROCEDURE: CT CHEST W CON CLINCAL INDICATION: f/u lung cancer Follow-up lung cancer COMPARISON: CT CHEST W CON from 08/22/2019 CT ABDOMEN PELVIS W CON from 02/05/2020 TECHNIQUE: IV Contrast: 75ml Optiray 350 Axial images obtained with sagittal and coronal reformats. All CT scans at the facility use one or more dose reduction, viz: automated exposure control, ma/kV adjustment per patient size (including targeted exams where dose is matched to indication, i.e. head), or iterative reconstruction technique. FINDINGS: HEART AND MEDIASTINAL STRUCTURES: There is a right subclavian MediPort catheter present with the tip in the region the SVC. No mediastinal or hilar mass or adenopathy evident. There are few scattered small mediastinal and hilar lymph nodes which are not significantly changed. There is minimal thickening of the pericardium inferiorly and anteriorly. LUNGS AND PLEURAL SPACES: Centrilobular emphysema with scattered areas of scarring the and evidence of old granulomatous disease. 6 mm nodules present in the right upper lobe inferiorly slightly smaller from the previous exam. Scattered areas of scarring with pulmonary fibrosis noted in the lung bases with bronchial thickening. These findings are slightly worse. There is subpleural opacification in the left midlung laterally along the major fissure and may be due to an area of scarring versus inflammation/infection. This has developed since the previous exam. Subpleural parenchymal opacity also noted in the left lung base and has developed since the previous exam.. Pleural thickening noted in the right hemithorax posteriorly BONY STRUCTURES: Chronic changes UPPER ABDOMEN: See abdomen report ADDITIONAL FINDINGS: No other significant abnormalities. IMPRESSION: 1. Centrilobular emphysema with COPD and pulmonary fibrosis. The pulmonary fibrotic changes appear worse than when compared to the previous exam with increase in interstitial thickening and areas of subpleural opacification 2. There are no new suspicious nodules apparent. The Dictated by: Zackery Red MD 02/06/2020 10:36 Electronically signed by Zackery Red MD in [facility] 02/06/2020 10:36
--- NOTE | 2020-02-05 08:58 | CT_ITS ---
PROCEDURE: CT ABDOMEN PELVIS W CON CLINICAL INDICATION: f/u lung cancer Follow-up lung cancer COMPARISON: CT ABDOMEN PELVIS W CON from 08/22/2019 TECHNIQUE: IV Contrast: 75ML OPTIRAY 350 Oral Contrast None Axial images obtained with sagittal and coronal reformats. All CT scans at the facility use one or more dose reduction, viz: automated exposure control, ma/kV adjustment per patient size (including targeted exams where dose is matched to indication, i.e. head), or iterative reconstruction technique. FINDINGS: The liver, gallbladder, spleen, adrenal glands, pancreas, and kidneys show no acute finding with no evidence of metastatic disease in these structures. The adrenal glands are slightly prominent but maintain and adrenal form shape without obvious nodule. Small cyst projects off the medial aspect of the left kidney inferiorly unchanged. No intestinal obstruction or free air. There is mild ectasia of the infrarenal abdominal aorta not significantly changed. This measures up 2 2.7 cm in AP dimension. There is colonic diverticulosis. No evidence of diverticulitis. There is mild nonspecific thickening of the gastric antrum and duodenal bulb. Postsurgical changes noted of the lumbar spine. IMPRESSION: 1. No convincing evidence of metastatic disease. 2. Mild thickening of the gastric antrum and duodenal bulb which could be due to nondistention or mild gastritis/duodenitis Dictated by: Zackery Red MD 02/06/2020 10:41 Electronically signed by Zackery Red MD in [facility] 02/06/2020 10:41
[2020-02-05 09:04] LABS: Chloride 100 mmol/L (98-107)
[2020-02-05 09:05] LABS: Potassium 4.6 mmoL/L (3.5-5.1); Sodium 135 mmol/L (136-145)
[2020-02-05 09:07] LABS: Alanine Aminotransferase 18 U/L (12-78); Alkaline Phosphatase 135 U/L (38-126); Anion Gap 13.6 mEq/L (5-15); Aspartate Amino Transferase 30 U/L (17-59); Bilirubin,Total 0.5 mg/dl (0.2-1.3); Blood Urea Nitrogen 17 mg/dl (9-20); Carbon Dioxide 26 mmol/L (22.0-30.0); Creatinine Clearance Estimated 80 mL/min (50-200); Estimated Glomerular Filt Rate 85 ml/min (>60); GFR (African American) 102 ML/MIN (>60)
[2020-02-05 09:08] LABS: Albumin Level 3.6 g/dl (3.5-5.0); Albumin/Globulin Ratio 0.8 (1.1-1.8); Globulin 4.4 g/dL (1.3-3.2); Glucose 101 mg/dl (74-100)
[2020-02-05 09:11] LABS: Hemoglobin A1C 5.9 % (4.0-6.0)
[2020-02-05 09:41] LABS: Thyroid Stimulating Hormone 1.79 uIU/mL (0.465-4.68)
[2020-02-06 12:26] LABS: Vitamin B12 1646 pg/mL (232-1245)
[2020-02-06 16:30] LABS: Treponema pallidum Ab (FTA-ABS Non Reactive (Non Reactive)
== END 2020-02-05 10:00 | disposition home or self-care (01) ==
LOC: INF 08:51
PROVIDERS: PCP Internal Medicine Adolescent Medicine; Visit Provider Internal Medicine Medical Oncology
DX: Z51.11 Encounter for antineoplastic chemotherapy (principal); C34.81 Malignant neoplasm of overlapping sites of right bronchus and lung; R73.9 Hyperglycemia, unspecified; G60.9 Hereditary and idiopathic neuropathy, unspecified; Z79.899 Other long term (current) drug therapy
CPT/HCPCS: 71260; 74177; 80053; 82024; 82533; 82607; 83036; 84443; 85025; 86780; J1642; Q9967

== ENCOUNTER 2020-02-08 09:17 | Outpatient (CLI) | payer MEDICARE, SELFPAY ==
[2020-02-08 10:00] VITALS: BP 101/62; PULSE 73; RESP 18; TEMP 36.3
[2020-02-08 10:15] VITALS: BP 105/64; PULSE 75; RESP 18
[2020-02-08 10:30] VITALS: BP 107/69; PULSE 73; RESP 18
== END 2020-02-08 10:55 | disposition home or self-care (01) ==
LOC: INF 09:17
PROVIDERS: Visit Provider Internal Medicine Medical Oncology
DX: Z51.11 Encounter for antineoplastic chemotherapy (principal); C34.81 Malignant neoplasm of overlapping sites of right bronchus and lung
CPT/HCPCS: 96413; J1642; J9271

== ENCOUNTER 2020-03-07 08:20 | Outpatient (CLI) | payer MEDICARE, SELFPAY ==
[2020-03-07 08:27] VITALS: BMI 23.7
[2020-03-07 09:01] LABS: Basophils # 0.1 K/mm3 (0-0.2); Basophils % 0.8 % (0.1-2.0); Eosinophils # 0.2 K/mm3 (0.0-0.4); Eosinophils % 2.3 % (0.1-12.0); Hematocrit 37.6 % (42.0-52.0); Hemoglobin 12.1 g/dL (14.1-18.0); Lymphocytes # 1.8 K/mm3 (0.7-4.5); Mean Corpuscular HGB Conc 32.1 g/dL (31.8-35.4); Mean Corpuscular Hemoglobin 33.9 pg (27.0-31.2); Mean Corpuscular Volume 105.6 fl (80-94); Mean Platelet Volume 8.3 fl (7.4-10.4); Monocytes # 0.6 K/mm3 (0.1-1.0); Monocytes % 5.4 % (1.7-9.3); Neutrophils # 7.7 K/mm3 (1.8-7.8); Neutrophils % 74.4 % (37.0-80.0); Platelet Count 454 K/mm3 (142-424); Red Blood Count 3.57 M/mm3 (4.60-6.20); Red Cell Distribution Width 13.8 % (11.5-17.5); White Blood Count 10.3 K/mm3 (4.8-10.8)
[2020-03-07 09:08] LABS: Alanine Aminotransferase 18 U/L (12-78); Albumin Level 3.4 g/dl (3.5-5.0); Albumin/Globulin Ratio 0.8 (1.1-1.8); Alkaline Phosphatase 136 U/L (38-126); Anion Gap 12.7 mEq/L (5-15); Aspartate Amino Transferase 27 U/L (17-59); Bilirubin,Total 0.5 mg/dl (0.2-1.3); Blood Urea Nitrogen 14 mg/dl (9-20); Calcium 9.1 mg/dl (8.4-10.2); Carbon Dioxide 26 mmol/L (22.0-30.0); Chloride 100 mmol/L (98-107); Creatinine Clearance Estimated 80 mL/min (50-200); Estimated Glomerular Filt Rate 135 ml/min (>60); GFR (African American) 164 ML/MIN (>60); Globulin 4.1 g/dL (1.3-3.2); Glucose 165 mg/dl (74-100); Potassium 3.7 mmoL/L (3.5-5.1); Sodium 135 mmol/L (136-145); Total Protein,Serum 7.5 g/dl (6.3-8.2)
[2020-03-07 09:54] LABS: Thyroid Stimulating Hormone 1.32 uIU/mL (0.465-4.68)
[2020-03-07 10:35] VITALS: BP 94/50; PULSE 71; RESP 18; TEMP 36.6; O2SAT 99
[2020-03-07 10:50] VITALS: BP 100/56; PULSE 63; RESP 18
[2020-03-07 11:05] VITALS: BP 96/59; PULSE 69; RESP 18
[2020-03-08 17:11] LABS: Adrenocorticotropic Hormone 4.4 pg/mL (7.2-63.3)
== END 2020-03-07 11:25 | disposition home or self-care (01) ==
LOC: INF 08:25
PROVIDERS: Visit Provider Internal Medicine Medical Oncology
DX: Z51.11 Encounter for antineoplastic chemotherapy (principal); C34.81 Malignant neoplasm of overlapping sites of right bronchus and lung; Z79.899 Other long term (current) drug therapy
CPT/HCPCS: 80053; 82024; 82533; 84443; 85025; 96413; J1642; J9271

== ENCOUNTER 2020-04-04 08:10 | Outpatient (CLI) | payer MEDICARE, SELFPAY ==
[2020-04-04 08:15] VITALS: BMI 24.3
[2020-04-04 08:40] LABS: Basophils # 0.1 K/mm3 (0-0.2); Basophils % 0.3 % (0.1-2.0); Chloride 103 mmol/L (98-107); Eosinophils # 0.2 K/mm3 (0.0-0.4); Eosinophils % 1.3 % (0.1-12.0); Hematocrit 37.8 % (42.0-52.0); Hemoglobin 12.4 g/dL (14.1-18.0); Lymphocytes # 2.4 K/mm3 (0.7-4.5); Mean Corpuscular HGB Conc 32.8 g/dL (31.8-35.4); Mean Corpuscular Hemoglobin 33.3 pg (27.0-31.2); Mean Corpuscular Volume 101.3 fl (80-94); Mean Platelet Volume 7.9 fl (7.4-10.4); Monocytes # 0.9 K/mm3 (0.1-1.0); Monocytes % 6.1 % (1.7-9.3); Neutrophils # 10.5 K/mm3 (1.8-7.8); Neutrophils % 75.3 % (37.0-80.0); Platelet Count 437 K/mm3 (142-424); Potassium 3.5 mmoL/L (3.5-5.1); Red Blood Count 3.73 M/mm3 (4.60-6.20); Red Cell Distribution Width 14.7 % (11.5-17.5); Sodium 136 mmol/L (136-145)
[2020-04-04 08:43] LABS: Alanine Aminotransferase 37 U/L (12-78); Albumin Level 3.1 g/dl (3.5-5.0); Albumin/Globulin Ratio 0.9 (1.1-1.8); Alkaline Phosphatase 107 U/L (38-126); Anion Gap 9.5 mEq/L (5-15); Aspartate Amino Transferase 29 U/L (17-59); Bilirubin,Total 0.5 mg/dl (0.2-1.3); Blood Urea Nitrogen 17 mg/dl (9-20); Calcium 8.5 mg/dl (8.4-10.2); Carbon Dioxide 27 mmol/L (22.0-30.0); Creatinine Clearance Estimated 78 mL/min (50-200); Estimated Glomerular Filt Rate 135 ml/min (>60); GFR (African American) 164 ML/MIN (>60); Globulin 3.3 g/dL (1.3-3.2); Glucose 146 mg/dl (74-100); Total Protein,Serum 6.4 g/dl (6.3-8.2)
== END 2020-04-04 09:45 | disposition home or self-care (01) ==
LOC: INF 08:12
PROVIDERS: Visit Provider Internal Medicine Medical Oncology
DX: C34.81 Malignant neoplasm of overlapping sites of right bronchus and lung (principal); Z45.2 Encounter for adjustment and management of vascular access device
CPT/HCPCS: 80053; 85025; J1642

== ENCOUNTER 2020-04-18 08:24 | Outpatient (CLI) | payer MEDICARE, SELFPAY ==
[2020-04-18 08:31] VITALS: BMI 23.8
[2020-04-18 08:53] LABS: Basophils # 0.1 K/mm3 (0-0.2); Basophils % 0.3 % (0.1-2.0); Eosinophils # 0.1 K/mm3 (0.0-0.4); Eosinophils % 0.5 % (0.1-12.0); Hematocrit 41.5 % (42.0-52.0); Hemoglobin 13.8 g/dL (14.1-18.0); Lymphocytes # 2.3 K/mm3 (0.7-4.5); Lymphocytes % 14.9 % (10-50); Mean Corpuscular HGB Conc 33.2 g/dL (31.8-35.4); Mean Corpuscular Hemoglobin 32.8 pg (27.0-31.2); Mean Corpuscular Volume 98.8 fl (80-94); Mean Platelet Volume 7.3 fl (7.4-10.4); Monocytes # 0.8 K/mm3 (0.1-1.0); Monocytes % 5.1 % (1.7-9.3); Neutrophils % 79.1 % (37.0-80.0); Platelet Count 399 K/mm3 (142-424); Red Cell Distribution Width 14.1 % (11.5-17.5); White Blood Count 15.1 K/mm3 (4.8-10.8)
[2020-04-18 08:54] LABS: MANUAL DIFFERENTIAL MANUAL DIFFERENTIAL (MANUAL DIFF)
[2020-04-18 09:03] LABS: Lymphocytes % 12 % (10-50); Monocytes % 4 % (2-9); Neutrophils % 83 % (42-76); Platelet Estimate Normal; RBC Morphology Normal; Total Cells Counted 100
[2020-04-18 09:07] LABS: Alanine Aminotransferase 18 U/L (12-78); Albumin Level 3.6 g/dl (3.5-5.0); Alkaline Phosphatase 123 U/L (38-126); Anion Gap 13.2 mEq/L (5-15); Aspartate Amino Transferase 40 U/L (17-59); Bilirubin,Total 0.5 mg/dl (0.2-1.3); Blood Urea Nitrogen 16 mg/dl (9-20); Calcium 9.1 mg/dl (8.4-10.2); Carbon Dioxide 26 mmol/L (22.0-30.0); Chloride 100 mmol/L (98-107); Creatinine Clearance Estimated 78 mL/min (50-200); Estimated Glomerular Filt Rate 135 ml/min (>60); GFR (African American) 164 ML/MIN (>60); Globulin 3.7 g/dL (1.3-3.2); Glucose 182 mg/dl (74-100); Potassium 3.2 mmoL/L (3.5-5.1); Sodium 136 mmol/L (136-145); Total Protein,Serum 7.3 g/dl (6.3-8.2)
[2020-04-18 09:35] VITALS: BP 114/74; PULSE 91; RESP 20; O2SAT 98
[2020-04-18 09:37] LABS: Thyroid Stimulating Hormone 1.39 uIU/mL (0.465-4.68)
[2020-04-18 10:35] VITALS: BP 112/66; PULSE 79; RESP 20
[2020-04-20 18:15] LABS: Adrenocorticotropic Hormone 5.8 pg/mL (7.2-63.3)
== END 2020-04-18 10:35 | disposition home or self-care (01) ==
LOC: INF 08:24
PROVIDERS: Visit Provider Internal Medicine Medical Oncology
DX: C34.81 Malignant neoplasm of overlapping sites of right bronchus and lung (principal); Z45.2 Encounter for adjustment and management of vascular access device; Z79.899 Other long term (current) drug therapy
CPT/HCPCS: 80053; 82024; 82533; 84443; 85007; 85025; 96360; J1642

== ENCOUNTER 2020-04-23 08:40 | Outpatient (CLI) | payer MEDICARE, SELFPAY ==
[2020-04-23 08:43] VITALS: BP 120/71; PULSE 106; RESP 20; TEMP 36.8; O2SAT 96
[2020-04-23 09:45] VITALS: BP 116/60; PULSE 89; RESP 20
== END 2020-04-23 09:45 | disposition home or self-care (01) ==
LOC: INF 08:51
PROVIDERS: Visit Provider Internal Medicine Medical Oncology
DX: E86.0 Dehydration (principal)
CPT/HCPCS: 96360; J1642

== ENCOUNTER → 2020-05-01 09:40 | Outpatient (CLI) | payer MEDICARE, SELFPAY ==
[2020-05-01 09:44] LABS: Adenovirus F 40/41, stool Not Detected (NotDetected); Astrovirus Not Detected (NotDetected); Campylobacter Not Detected (NotDetected); Clostridium Difficile A/B, PCR Not Detected (NotDetected); Cryptosporidium Not Detected (NotDetected); Cyclospora Cayetanesis Not Detected (NotDetected); Entamoeba histolytica Not Detected (NotDetected); Enteroaggregative E coli Not Detected (NotDetected); Enteropathogenic E coli Not Detected (NotDetected); Enterotoxigenic E coli Not Detected (NotDetected); Giardia lamblia Not Detected (NotDetected); Norovirus Not Detected (NotDetected); Plesimonas Shigalloides, PCR Not Detected (NotDetected); Rotavirus A Not Detected (NotDetected); Salmonella, PCR Not Detected (NotDetected); Sapovirus Not Detected (NotDetected); Shiga-like toxin E coli Not Detected (NotDetected); Shigella Enterovasive E coli Not Detected (NotDetected); Vibrio Cholerae Not Detected (NotDetected); Vibrio, PCR Not Detected (NotDetected); Yersinia Entercolitica, PCR Not Detected (NotDetected)
[2020-05-01 09:49] VITALS: BMI 22.1
[2020-05-01 10:05] VITALS: BP 126/69; PULSE 101; RESP 20; O2SAT 96
--- NOTE | 2020-05-01 11:10 | PC.NURSE ---
1110-collected labs from pac and sent to lab
[2020-05-01 11:15] VITALS: BP 129/71; PULSE 99; RESP 20; O2SAT 96
[2020-05-01 11:29] LABS: Basophils # 0.1 K/mm3 (0-0.2); Basophils % 0.6 % (0.1-2.0); Eosinophils # 0.1 K/mm3 (0.0-0.4); Eosinophils % 0.9 % (0.1-12.0); Hematocrit 39.5 % (42.0-52.0); Hemoglobin 12.3 g/dL (14.1-18.0); Lymphocytes # 1.7 K/mm3 (0.7-4.5); Lymphocytes % 11.2 % (10-50); Mean Corpuscular HGB Conc 31.1 g/dL (31.8-35.4); Mean Corpuscular Hemoglobin 31.4 pg (27.0-31.2); Mean Corpuscular Volume 100.8 fl (80-94); Mean Platelet Volume 7.2 fl (7.4-10.4); Monocytes # 0.9 K/mm3 (0.1-1.0); Monocytes % 6.3 % (1.7-9.3); Platelet Count 342 K/mm3 (142-424); Red Blood Count 3.92 M/mm3 (4.60-6.20); Red Cell Distribution Width 14.4 % (11.5-17.5); White Blood Count 14.8 K/mm3 (4.8-10.8)
[2020-05-01 11:52] LABS: Alanine Aminotransferase 12 U/L (12-78); Albumin/Globulin Ratio 0.9 (1.1-1.8); Alkaline Phosphatase 90 U/L (38-126); Anion Gap 6.8 mEq/L (5-15); Aspartate Amino Transferase 21 U/L (17-59); Bilirubin,Total 0.3 mg/dl (0.2-1.3); Blood Urea Nitrogen 17 mg/dl (9-20); Calcium 8.6 mg/dl (8.4-10.2); Carbon Dioxide 28 mmol/L (22.0-30.0); Chloride 106 mmol/L (98-107); Creatinine Clearance Estimated 77 mL/min (50-200); Estimated Glomerular Filt Rate 135 ml/min (>60); GFR (African American) 164 ML/MIN (>60); Globulin 3.2 g/dL (1.3-3.2); Glucose 130 mg/dl (74-100); Potassium 3.8 mmoL/L (3.5-5.1); Sodium 137 mmol/L (136-145); Total Protein,Serum 6.2 g/dl (6.3-8.2)
[2020-05-01 12:23] LABS: Thyroid Stimulating Hormone 0.87 uIU/mL (0.465-4.68)
[2020-05-03 04:28] LABS: Adrenocorticotropic Hormone <1.5 pg/mL (7.2-63.3)
== END ==
PROVIDERS: PCP Internal Medicine Adolescent Medicine; Visit Provider Internal Medicine Medical Oncology
DX: C34.81 Malignant neoplasm of overlapping sites of right bronchus and lung (principal); Z79.899 Other long term (current) drug therapy; R19.7 Diarrhea, unspecified
CPT/HCPCS: 80053; 82024; 82533; 84443; 85025; 87506; 96360; J1642

== ENCOUNTER 2020-05-03 08:25 | Outpatient (CLI) | payer MEDICARE, SELFPAY ==
[2020-05-03 08:45] VITALS: BP 106/71; PULSE 89; RESP 18; TEMP 36.9; O2SAT 99
[2020-05-03 09:15] VITALS: BP 118/74; PULSE 84; RESP 18
[2020-05-03 09:45] VITALS: BP 128/70; PULSE 91; RESP 18
== END 2020-05-03 09:52 | disposition home or self-care (01) ==
LOC: INF 08:29
PROVIDERS: Visit Provider Internal Medicine Medical Oncology
DX: C34.81 Malignant neoplasm of overlapping sites of right bronchus and lung (principal); Z45.2 Encounter for adjustment and management of vascular access device
CPT/HCPCS: 96360; J1642

== ENCOUNTER 2020-05-10 09:20 | Outpatient (CLI) | payer MEDICARE, SELFPAY ==
[2020-05-10 09:45] VITALS: BP 99/62; PULSE 89; RESP 20; TEMP 36.6; O2SAT 93
[2020-05-10 10:15] VITALS: BP 102/64; PULSE 89; RESP 18
[2020-05-10 10:45] VITALS: BP 110/66; PULSE 79; RESP 18
== END 2020-05-10 10:50 | disposition home or self-care (01) ==
LOC: INF 09:31
PROVIDERS: PCP Internal Medicine Adolescent Medicine; Visit Provider Internal Medicine Medical Oncology
DX: C34.81 Malignant neoplasm of overlapping sites of right bronchus and lung (principal); Z45.2 Encounter for adjustment and management of vascular access device
CPT/HCPCS: 96360; J1642

== ENCOUNTER 2020-05-16 09:44 | Outpatient (CLI) | payer MEDICARE, SELFPAY ==
[2020-05-16 09:45] VITALS: BMI 22.9
[2020-05-16 10:07] LABS: Basophils # 0.1 K/mm3 (0-0.2); Basophils % 0.6 % (0.1-2.0); Eosinophils # 0.1 K/mm3 (0.0-0.4); Eosinophils % 0.9 % (0.1-12.0); Hematocrit 43.5 % (42.0-52.0); Hemoglobin 13.6 g/dL (14.1-18.0); Lymphocytes # 1.5 K/mm3 (0.7-4.5); Lymphocytes % 11.1 % (10-50); Mean Corpuscular HGB Conc 31.2 g/dL (31.8-35.4); Mean Corpuscular Volume 99.2 fl (80-94); Mean Platelet Volume 7.5 fl (7.4-10.4); Monocytes # 1.1 K/mm3 (0.1-1.0); Monocytes % 8.1 % (1.7-9.3); Neutrophils # 10.4 K/mm3 (1.8-7.8); Neutrophils % 79.2 % (37.0-80.0); Platelet Count 430 K/mm3 (142-424); Red Blood Count 4.39 M/mm3 (4.60-6.20); Red Cell Distribution Width 14.7 % (11.5-17.5); White Blood Count 13.1 K/mm3 (4.8-10.8)
[2020-05-16 10:16] LABS: Chloride 101 mmol/L (98-107); Sodium 136 mmol/L (136-145)
[2020-05-16 10:19] LABS: Alanine Aminotransferase 18 U/L (12-78); Albumin Level 3.9 g/dl (3.5-5.0); Albumin/Globulin Ratio 1.1 (1.1-1.8); Alkaline Phosphatase 92 U/L (38-126); Aspartate Amino Transferase 23 U/L (17-59); Bilirubin,Total 0.5 mg/dl (0.2-1.3); Blood Urea Nitrogen 18 mg/dl (9-20); Calcium 9.2 mg/dl (8.4-10.2); Carbon Dioxide 27 mmol/L (22.0-30.0); Creatinine Clearance Estimated 80 mL/min (50-200); Estimated Glomerular Filt Rate 113 ml/min (>60); GFR (African American) 137 ML/MIN (>60); Globulin 3.4 g/dL (1.3-3.2); Glucose 138 mg/dl (74-100); Total Protein,Serum 7.3 g/dl (6.3-8.2)
[2020-05-16 10:50] LABS: Thyroid Stimulating Hormone 0.55 uIU/mL (0.465-4.68)
[2020-05-16 10:52] VITALS: BP 114/87; PULSE 103; RESP 20; TEMP 36.4; O2SAT 98
[2020-05-16 11:22] VITALS: BP 118/84; PULSE 99; RESP 20; O2SAT 97
[2020-05-16 12:00] VITALS: BP 114/88; PULSE 101; RESP 20; O2SAT 98
[2020-05-17 14:33] LABS: Adrenocorticotropic Hormone 10.2 pg/mL (7.2-63.3)
== END 2020-05-16 12:00 | disposition home or self-care (01) ==
LOC: INF 09:44
PROVIDERS: Visit Provider Internal Medicine Medical Oncology
DX: Z51.11 Encounter for antineoplastic chemotherapy (principal); C34.81 Malignant neoplasm of overlapping sites of right bronchus and lung; Z79.899 Other long term (current) drug therapy
CPT/HCPCS: 80053; 82024; 82533; 84443; 85025; 96360; J1642

== ENCOUNTER 2020-05-24 14:02 | Outpatient (CLI) | payer MEDICARE, SELFPAY ==
[2020-05-24 14:10] VITALS: BP 109/68; PULSE 92; RESP 18; TEMP 36.6; O2SAT 96
[2020-05-24 15:10] VITALS: BP 99/68; PULSE 83; RESP 20
== END 2020-05-24 15:15 | disposition home or self-care (01) ==
LOC: INF 14:02
PROVIDERS: PCP Internal Medicine Adolescent Medicine; Visit Provider Internal Medicine Medical Oncology
DX: C34.81 Malignant neoplasm of overlapping sites of right bronchus and lung (principal)
CPT/HCPCS: 96360; J1642

== ENCOUNTER 2020-05-28 08:46 | Outpatient (CLI) | payer MEDICARE, SELFPAY ==
--- NOTE | 2020-05-28 | CT_ITS ---
PROCEDURE: CT ABDOMEN PELVIS WO/W CON CLINICAL INDICATION: Lung cancer f/u COMPARISON: CT CT ABDOMEN PELVIS W CON from 02/05/2020 TECHNIQUE: IV Contrast: 75ML OPTIRAY 350 Oral Contrast 450ml Redicat Axial images obtained with sagittal and coronal reformats. All CT scans at the facility use one or more dose reduction, viz: automated exposure control, ma/kV adjustment per patient size (including targeted exams where dose is matched to indication, i.e. head), or iterative reconstruction technique. FINDINGS: The liver, gallbladder, spleen, have an unremarkable appearance. No pancreatic mass is evident. There is mild prominence of the pancreatic duct in the head and mid body of the pancreas nonspecific. This is not significantly changed. The adrenal glands are slightly prominent but maintain and adrenal form shape. No definite mass. There is a 1.3 cm left renal cyst. No intestinal obstruction or free air. Colonic diverticulosis is present without diverticulitis. The wall the stomach once again is noted to be somewhat thickened but could be due to nondistention versus gastritis. There is mild dilatation of the infrarenal abdominal aorta at 2.7 cm not significantly changed. Postsurgical changes are present at the lumbar spine at L3-L4 with posterior fusion. Chronic wedge compression changes are present at L1. IMPRESSION: 1. Overall no significant change with no convincing evidence of metastatic disease. 2. Continue mild thickening of the gastric mucosa which could be due to nondistention or gastritis. Dictated by: Zackery Red MD 05/29/2020 09:17 Zackery Red MD in [facility] 05/29/2020 09:17
--- NOTE | 2020-05-28 | CT_ITS ---
PROCEDURE: CT CHEST WO/W CON CLINCAL INDICATION: Lung cancer f/u COMPARISON: CT CHESTW CT chest w con from 12/23/[address] CHEST W CON from 08/22/[address] CHEST W CON from 02/05/2020 TECHNIQUE: IV Contrast: 75ml Optiray 350 Axial images obtained with sagittal and coronal reformats. All CT scans at the facility use one or more dose reduction, viz: automated exposure control, ma/kV adjustment per patient size (including targeted exams where dose is matched to indication, i.e. head), or iterative reconstruction technique. FINDINGS: HEART AND MEDIASTINAL STRUCTURES: There are small lymph nodes in the left paratracheal region. This cluster of nodes measures 2.3 by 1.5 cm small previously 2 by 1.3 cm. Small precarinal node is present at approximately 1 cm unchanged. There is a left hilar lymph node present which is 2 by 1.3 cm not significantly changed. Coronary artery calcifications are present. LUNGS AND PLEURAL SPACES: COPD with centrilobular and paraseptal emphysema with pulmonary fibrosis once again noted. MediPort catheter is present from right subclavian approach with the catheter tip in the SVC region. There is some pleural thickening in the right apex unchanged. Scattered areas of scarring are noted as before the along with scattered areas of pleural thickening and honeycombing. Previously there was some superimposed septal thickening in the right lower lobe which has shown some improvement. There is a 1 cm nodule in the right lower lobe which is not readily apparent on the previous exam. Image 71 series 8. An additional 4 mm nodules present in the left lower lobe medially image 62 series 8 also not readily apparent previously. BONY STRUCTURES: No acute bony abnormalities apparent. UPPER ABDOMEN: See abdomen report ADDITIONAL FINDINGS: No other significant abnormalities. IMPRESSION: 1. There is mild mediastinal and left hilar adenopathy. The mediastinal nodes are slightly more prominent compared to the previous exam. 2. There are 2 new pulmonary nodules in the right lower lobe the at 10 and 4 mm. Metastatic disease is a consideration. Inflammatory or infectious process is also considered. 3. COPD with centrilobular and panlobular emphysematous changes with pulmonary fibrosis. The previously noted septal thickening in the right lower lobe has shown some improvement Dictated by: Zackery Red MD 05/29/2020 09:11 Zackery Red MD in [facility] 05/29/2020 09:11
[2020-05-28 08:40] VITALS: BMI 23.0
[2020-05-28 08:58] LABS: Basophils # 0.1 K/mm3 (0-0.2); Basophils % 0.6 % (0.1-2.0); Eosinophils # 0.3 K/mm3 (0.0-0.4); Eosinophils % 1.7 % (0.1-12.0); Hematocrit 41.9 % (42.0-52.0); Hemoglobin 13.6 g/dL (14.1-18.0); Lymphocytes # 3.1 K/mm3 (0.7-4.5); Lymphocytes % 18.3 % (10-50); Mean Corpuscular HGB Conc 32.5 g/dL (31.8-35.4); Mean Corpuscular Hemoglobin 31.2 pg (27.0-31.2); Mean Corpuscular Volume 95.9 fl (80-94); Mean Platelet Volume 7.6 fl (7.4-10.4); Monocytes # 1.1 K/mm3 (0.1-1.0); Monocytes % 6.5 % (1.7-9.3); Neutrophils # 12.3 K/mm3 (1.8-7.8); Neutrophils % 72.8 % (37.0-80.0); Platelet Count 444 K/mm3 (142-424); Red Blood Count 4.37 M/mm3 (4.60-6.20); Red Cell Distribution Width 15.2 % (11.5-17.5); White Blood Count 16.9 K/mm3 (4.8-10.8)
[2020-05-28 09:02] LABS: MANUAL DIFFERENTIAL MANUAL DIFFERENTIAL (MANUAL DIFF)
[2020-05-28 09:03] LABS: Sodium 137 mmol/L (136-145)
[2020-05-28 09:04] LABS: Chloride 102 mmol/L (98-107)
[2020-05-28 09:05] LABS: Blood Urea Nitrogen 13 mg/dl (9-20); Creatinine Clearance Estimated 80 mL/min (50-200); Estimated Glomerular Filt Rate 113 ml/min (>60); GFR (African American) 137 ML/MIN (>60)
[2020-05-28 09:06] LABS: Alanine Aminotransferase 15 U/L (12-78); Albumin Level 3.6 g/dl (3.5-5.0); Albumin/Globulin Ratio 1.1 (1.1-1.8); Alkaline Phosphatase 77 U/L (38-126); Aspartate Amino Transferase 23 U/L (17-59); Bilirubin,Total 0.5 mg/dl (0.2-1.3); Calcium 8.6 mg/dl (8.4-10.2); Carbon Dioxide 26 mmol/L (22.0-30.0); Globulin 3.3 g/dL (1.3-3.2); Glucose 109 mg/dl (74-100); Total Protein,Serum 6.9 g/dl (6.3-8.2)
[2020-05-28 09:14] LABS: Eosinophils % 4 % (0-3); Lymphocytes % 19 % (10-50); Monocytes % 7 % (2-9); Neutrophils % 70 % (42-76); Platelet Estimate Slight Increase; RBC Morphology Normal; Total Cells Counted 100
[2020-05-28 09:37] LABS: Thyroid Stimulating Hormone 2.62 uIU/mL (0.465-4.68)
[2020-05-28 10:18] LABS: Anion Gap 12.3 mEq/L (5-15); Potassium 3.3 mmoL/L (3.5-5.1)
[2020-05-29 13:54] LABS: Adrenocorticotropic Hormone 5.5 pg/mL (7.2-63.3)
== END 2020-05-28 09:30 | disposition home or self-care (01) ==
LOC: RAD 08:47
PROVIDERS: PCP Internal Medicine Adolescent Medicine; Visit Provider Internal Medicine Medical Oncology
DX: C34.81 Malignant neoplasm of overlapping sites of right bronchus and lung (principal); Z79.899 Other long term (current) drug therapy
CPT/HCPCS: 71270; 74178; 80053; 82024; 82533; 84443; 85007; 85025; J1642; Q9967

== ENCOUNTER 2020-06-04 09:20 | Outpatient (CLI) | payer MEDICARE, SELFPAY ==
[2020-06-04 09:23] VITALS: BP 117/92; PULSE 100; RESP 20; TEMP 36.3; O2SAT 98
[2020-06-04 10:29] VITALS: BP 123/68; PULSE 83; RESP 20
== END 2020-06-04 10:29 | disposition home or self-care (01) ==
LOC: INF 09:27
PROVIDERS: PCP Internal Medicine Adolescent Medicine; Visit Provider Internal Medicine Medical Oncology
DX: C34.81 Malignant neoplasm of overlapping sites of right bronchus and lung (principal)
CPT/HCPCS: 96360; J1642

== ENCOUNTER → 2020-06-13 14:26 | Outpatient (CLI) | payer MEDICARE, SELFPAY ==
[2020-06-13 14:30] VITALS: BMI 23.6
[2020-06-13 14:44] LABS: Basophils # 0.1 K/mm3 (0-0.2); Basophils % 0.3 % (0.1-2.0); Eosinophils % 0.1 % (0.1-12.0); Hematocrit 43.4 % (42.0-52.0); Hemoglobin 14.1 g/dL (14.1-18.0); Lymphocytes # 1.4 K/mm3 (0.7-4.5); Lymphocytes % 8.9 % (10-50); Mean Corpuscular HGB Conc 32.5 g/dL (31.8-35.4); Mean Corpuscular Hemoglobin 31.6 pg (27.0-31.2); Mean Corpuscular Volume 97.2 fl (80-94); Mean Platelet Volume 8.2 fl (7.4-10.4); Monocytes # 0.6 K/mm3 (0.1-1.0); Monocytes % 3.8 % (1.7-9.3); Neutrophils % 86.9 % (37.0-80.0); Platelet Count 394 K/mm3 (142-424); Red Blood Count 4.47 M/mm3 (4.60-6.20); Red Cell Distribution Width 15.1 % (11.5-17.5); White Blood Count 16.1 K/mm3 (4.8-10.8)
[2020-06-13 14:48] LABS: MANUAL DIFFERENTIAL MANUAL DIFFERENTIAL (MANUAL DIFF)
[2020-06-13 14:49] LABS: Potassium 4.5 mmoL/L (3.5-5.1); Sodium 133 mmol/L (136-145)
[2020-06-13 14:50] LABS: Chloride 101 mmol/L (98-107)
[2020-06-13 14:52] LABS: Alanine Aminotransferase 19 U/L (12-78); Albumin Level 3.9 g/dl (3.5-5.0); Albumin/Globulin Ratio 1.2 (1.1-1.8); Alkaline Phosphatase 75 U/L (38-126); Anion Gap 12.5 mEq/L (5-15); Aspartate Amino Transferase 25 U/L (17-59); Bilirubin,Total 0.5 mg/dl (0.2-1.3); Blood Urea Nitrogen 17 mg/dl (9-20); Carbon Dioxide 24 mmol/L (22.0-30.0); Creatinine Clearance Estimated 81 mL/min (50-200); Estimated Glomerular Filt Rate 97 ml/min (>60); GFR (African American) 117 ML/MIN (>60); Globulin 3.2 g/dL (1.3-3.2); Total Protein,Serum 7.1 g/dl (6.3-8.2)
[2020-06-13 14:53] LABS: Glucose 215 mg/dl (74-100)
[2020-06-13 14:58] LABS: Lymphocytes % 7 % (10-50); Monocytes % 2 % (2-9); Neutrophils % 89 % (42-76); Platelet Estimate Normal; RBC Morphology Normal; Total Cells Counted 100
== END ==
PROVIDERS: Visit Provider Internal Medicine Medical Oncology
DX: C34.81 Malignant neoplasm of overlapping sites of right bronchus and lung (principal); Z45.2 Encounter for adjustment and management of vascular access device
CPT/HCPCS: 80053; 85007; 85025; J1642

== ENCOUNTER 2020-06-25 09:10 | Outpatient (CLI) | payer MEDICARE, SELFPAY ==
[2020-06-25 09:24] VITALS: BP 128/73; PULSE 82; RESP 18; TEMP 36.3; O2SAT 97
[2020-06-25 10:00] VITALS: BP 132/74; PULSE 78; RESP 16; O2SAT 98
[2020-06-25 10:30] VITALS: BP 135/72; PULSE 75; RESP 16; TEMP 36.4; O2SAT 97
== END 2020-06-25 10:30 | disposition home or self-care (01) ==
LOC: INF 09:10
PROVIDERS: Visit Provider Internal Medicine Medical Oncology
DX: C34.81 Malignant neoplasm of overlapping sites of right bronchus and lung (principal)
CPT/HCPCS: 96360; J1642

== ENCOUNTER 2020-07-11 09:13 | Outpatient (CLI) | payer MEDICARE, MEDICAID, SELFPAY ==
[2020-07-11 09:37] VITALS: BP 139/76; PULSE 69; RESP 18; TEMP 36.3; O2SAT 96
[2020-07-11 10:40] VITALS: BP 132/74; PULSE 71; RESP 16; TEMP 36.4; O2SAT 96
== END 2020-07-11 10:45 | disposition home or self-care (01) ==
LOC: INF 09:13
PROVIDERS: Visit Provider Internal Medicine Medical Oncology
DX: C34.81 Malignant neoplasm of overlapping sites of right bronchus and lung (principal)
CPT/HCPCS: 96360; 96361; J1642

== ENCOUNTER 2020-07-30 09:41 | Outpatient (CLI) | payer MEDICARE, MEDICAID, SELFPAY ==
[2020-07-30 09:56] VITALS: BP 142/81; PULSE 99; RESP 20; O2SAT 98
[2020-07-30 11:05] VITALS: BP 136/80; PULSE 103; RESP 20
== END 2020-07-30 11:05 | disposition home or self-care (01) ==
LOC: INF 10:20
PROVIDERS: Visit Provider Internal Medicine Medical Oncology
DX: C34.81 Malignant neoplasm of overlapping sites of right bronchus and lung (principal)
CPT/HCPCS: 96360; J1642

== ENCOUNTER 2020-08-08 08:50 | Outpatient (CLI) | payer MEDICARE, MEDICAID, SELFPAY ==
[2020-08-08 08:52] VITALS: BMI 23.3
[2020-08-08 09:06] LABS: Basophils # 0.1 K/mm3 (0-0.2); Basophils % 0.8 % (0.1-2.0); Eosinophils # 0.1 K/mm3 (0.0-0.4); Eosinophils % 0.8 % (0.1-12.0); Hematocrit 46.9 % (42.0-52.0); Hemoglobin 14.5 g/dL (14.1-18.0); Lymphocytes # 2.6 K/mm3 (0.7-4.5); Lymphocytes % 14.8 % (10-50); Mean Corpuscular HGB Conc 30.8 g/dL (31.8-35.4); Mean Corpuscular Volume 100.8 fl (80-94); Mean Platelet Volume 8.4 fl (7.4-10.4); Monocytes # 1.1 K/mm3 (0.1-1.0); Monocytes % 6.1 % (1.7-9.3); Neutrophils # 13.4 K/mm3 (1.8-7.8); Neutrophils % 77.4 % (37.0-80.0); Platelet Count 337 K/mm3 (142-424); Red Blood Count 4.66 M/mm3 (4.60-6.20); Red Cell Distribution Width 14.1 % (11.5-17.5); White Blood Count 17.3 K/mm3 (4.8-10.8)
[2020-08-08 09:14] LABS: Carbon Dioxide 25 mmol/L (22.0-30.0); Chloride 102 mmol/L (98-107); Sodium 136 mmol/L (136-145)
[2020-08-08 09:15] LABS: Alanine Aminotransferase 40 U/L (12-78); Albumin/Globulin Ratio 1.1 (1.1-1.8); Alkaline Phosphatase 249 U/L (38-126); Aspartate Amino Transferase 47 U/L (17-59); Bilirubin,Total 1.2 mg/dl (0.2-1.3); Blood Urea Nitrogen 32 mg/dl (9-20); Calcium 9.8 mg/dl (8.4-10.2); Creatinine Clearance Estimated 80 mL/min (50-200); Estimated Glomerular Filt Rate 75 ml/min (>60); GFR (African American) 90 ML/MIN (>60); Globulin 3.8 g/dL (1.3-3.2); Glucose 210 mg/dl (74-100); Total Protein,Serum 7.8 g/dl (6.3-8.2)
[2020-08-08 09:18] LABS: MANUAL DIFFERENTIAL MANUAL DIFFERENTIAL (MANUAL DIFF)
[2020-08-08 09:50] LABS: Eosinophils % 1 % (0-3); Lymphocytes % 17 % (10-50); Macrocytosis 1+; Monocytes % 5 % (2-9); Neutrophils % 77 % (42-76); Platelet Estimate Normal; Total Cells Counted 100
== END 2020-08-08 09:50 | disposition home or self-care (01) ==
LOC: INF 08:50
PROVIDERS: Visit Provider Internal Medicine Medical Oncology
DX: Z45.2 Encounter for adjustment and management of vascular access device (principal); C34.81 Malignant neoplasm of overlapping sites of right bronchus and lung
CPT/HCPCS: 80053; 85007; 85025; J1642

== ENCOUNTER 2020-08-12 08:50 | Outpatient (CLI) | payer MEDICARE, OTHER, SELFPAY ==
[2020-08-12 09:12] VITALS: BP 103/63; PULSE 85; RESP 18; TEMP 36.3; O2SAT 97
[2020-08-12 09:42] VITALS: BP 101/67; PULSE 88; RESP 18; O2SAT 97
[2020-08-12 10:15] VITALS: BP 112/65; PULSE 79; RESP 18; O2SAT 98
== END 2020-08-12 10:25 | disposition home or self-care (01) ==
LOC: INF 08:52
PROVIDERS: PCP Internal Medicine Adolescent Medicine; Visit Provider Internal Medicine Medical Oncology
DX: C34.81 Malignant neoplasm of overlapping sites of right bronchus and lung (principal)
CPT/HCPCS: 96360; J1642

== ENCOUNTER 2020-08-13 09:35 | Outpatient (CLI) | payer MEDICARE, OTHER, SELFPAY ==
--- NOTE | 2020-08-13 09:41 | MR_ITS ---
PROCEDURE: MR HEAD/BRAIN WO/W CON CLINICAL INDICATION: LUNG CANCER, DIZZY, CONFUSION COMPARISON: No exams were available for comparison TECHNIQUE: Routine multiplanar multi echo sequences are performed without and with gadolinium enhancement. FINDINGS: There are numerous supratentorial and infratentorial enhancing lesions consistent with metastatic disease. These are located in both frontal lobes, parietal lobes, occipital lobes, right temporal lobe, and both cerebellar hemispheres. The largest lesion is in the left frontal lobe medially measuring 3.2 x 2.3 cm. Another lesion of concern is in the right frontal lobe medially medial to the anterior horn of the right lateral ventricle. This is causing some compression upon the anterior horn of the right lateral ventricle. This lesion is 2 cm. There is no evidence hydrocephalus. Some of the lesions do show restricted diffusion. The pituitary, optic chiasm, and craniocervical junction has an unremarkable appearance. The medial right frontal lobe lesion is at the inferior aspect of the genu of the right corpus callosum with possible corpus callosum involvement. The right lateral ventricle is larger than the left side however, no obstructing lesions are evident at the foramen of Monro. This could be a variant of normal. The cerebellopontine angles have an unremarkable appearance. No mastoid effusion or sinus air-fluid level. IMPRESSION: Multiple brain metastasis as described above. Dictated by: Zackery Red MD 08/14/2020 08:44 Zackery Red MD in [facility] 08/14/2020 08:44
== END 2020-08-13 11:05 | disposition home or self-care (01) ==
PROVIDERS: PCP Internal Medicine Adolescent Medicine; Visit Provider Internal Medicine Medical Oncology
DX: C34.81 Malignant neoplasm of overlapping sites of right bronchus and lung (principal); R42 Dizziness and giddiness; R41.0 Disorientation, unspecified; Z45.2 Encounter for adjustment and management of vascular access device
CPT/HCPCS: 70553; A9576; J1642

== ENCOUNTER 2020-08-26 11:04 | Inpatient (IN) | payer MEDICARE, OTHER, SELFPAY ==
--- NOTE | 2020-08-26 11:19 | XR_ITS ---
PROCEDURE: XR CHEST PORTABLE CLINICAL HISTORY: Cough Lung cancer, shortness of breath COMPARISON: CR CXR2V XR chest 2V from 08/04/2018 CR CXR2V XR chest 2V from 12/13/[address] CHEST WO/W CON from 05/28/2020 FINDINGS: The cardiomediastinal silhouette and pulmonary vascularity are within normal limits. COPD. Pulmonary fibrotic changes are present. Faint increased density is present in the right perihilar region and right lower lobe which may be related underlying pneumonia.. Right subclavian MediPort catheter is present. The tip is in the region the SVC. No acute bony abnormalities. IMPRESSION: COPD with pulmonary fibrosis with possible infiltrate in the right perihilar region and right lower lobe Dictated by: Zackery Red MD 08/26/2020 14:57 Zackery Red MD in [place] 08/26/2020 14:57
[2020-08-26 13:27] LABS: Chloride 95 mmol/L (98-107)
[2020-08-26 13:28] LABS: Potassium 4.3 mmoL/L (3.5-5.1); Sodium 130 mmol/L (136-145)
[2020-08-26 13:30] LABS: Basophils # 0.2 K/mm3 (0-0.2); Basophils % 0.8 % (0.1-2.0); Blood Urea Nitrogen 53 mg/dl (9-20); Eosinophils % 0.2 % (0.1-12.0); Estimated Glomerular Filt Rate 75 ml/min (>60); GFR (African American) 90 ML/MIN (>60); Hematocrit 47.7 % (42.0-52.0); Hemoglobin 15.5 g/dL (14.1-18.0); Lymphocytes # 2.3 K/mm3 (0.7-4.5); Lymphocytes % 9.2 % (10-50); Mean Corpuscular HGB Conc 32.6 g/dL (31.8-35.4); Mean Corpuscular Hemoglobin 32.4 pg (27.0-31.2); Mean Corpuscular Volume 99.4 fl (80-94); Mean Platelet Volume 10.1 fl (7.4-10.4); Monocytes # 1.1 K/mm3 (0.1-1.0); Monocytes % 4.5 % (1.7-9.3); Neutrophils # 21.3 K/mm3 (1.8-7.8); Neutrophils % 85.4 % (37.0-80.0); Platelet Count 198 K/mm3 (142-424); Red Cell Distribution Width 14.6 % (11.5-17.5)
[2020-08-26 13:31] LABS: Alanine Aminotransferase 63 U/L (12-78); Albumin Level 3.3 g/dl (3.5-5.0); Albumin/Globulin Ratio 0.9 (1.1-1.8); Alkaline Phosphatase 405 U/L (38-126); Anion Gap 11.3 mEq/L (5-15); Aspartate Amino Transferase 53 U/L (17-59); Bilirubin,Total 3.1 mg/dl (0.2-1.3); Carbon Dioxide 28 mmol/L (22.0-30.0); Globulin 3.6 g/dL (1.3-3.2); Glucose 179 mg/dl (74-100); Magnesium 2.5 mg/dl (1.6-2.3); Total Protein,Serum 6.9 g/dl (6.3-8.2)
[2020-08-26 14:03] LABS: Coronavirus 19 IgG Antibody Negative (Negative); Coronavirus 19 IgM Antibody Negative (Negative)
[2020-08-26 14:10] LABS: MANUAL DIFFERENTIAL MANUAL DIFFERENTIAL (MANUAL DIFF)
--- NOTE | 2020-08-26 14:35 | PC.NURSE ---
patient arrived by wheelchair to room
[2020-08-26 14:43] VITALS: BMI 22.7
--- NOTE | 2020-08-26 14:57 | HMH.PHAVTE ---
[facility] Pharmacy VTE Monitoring - Patient Demographics Admission date: 08/26/20 Report Date: 08/26/20 Time: 14:57 Allergies/Adverse Reactions: Patient Allergies No Known Drug Allergies Allergy (Verified 08/16/20 12:28) Height: 1.83 m Weight: 76.067 kg - VTE Risk Labs: VTE Related Lab Results Hgb 15.5 g/dL (14.1-18.0) 08/26/20 12:29 Hct 47.7 % (42.0-52.0) 08/26/20 12:29 Plt Count 198 K/mm3 (142-424) 08/26/20 12:29 BUN 53 mg/dl (9-20) H 08/26/20 12:29 Creatinine 1.00 mg/dl (0.66-1.25) 08/26/20 12:29 VTE Score: 8 VTE Risk Level: Moderate Risk - Prophylaxis VTE Prophylaxis Ordered?: Yes Types of VTE Prophylaxis: TEDS Knee High Location of Applied Device: Bilateral Lower Extremeties
[2020-08-26 16:00] VITALS: BP 109/63; PULSE 67; RESP 20; RESP 67; TEMP 36.6; TEMP 36.7; O2SAT 98
--- NOTE | 2020-08-26 17:02 | HMH.HP ---
*Admission Date: 08/26/20 *Chief complaint: Confusion, difficulty swallowing, weakness *History of present illness: 65 yr old male with metastatic lung cancer presents to our office today with complaints of worsening confusion, global weakness, difficulty swallowing and coughing. 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 Lung cancer diagnosed in 2019 after developing malignant pleural effusion. Is following here with Dr River and about 10 days ago was noted to have brain metastases and last week underwent radiation therapy in [place]. He has bony metastases as well and his pain has been increasing significantly over the past couple of weeks. Currently taking oxycodone 5mg two tablets every 4-6 hours which is really not relieving his pain. Has also been on treatment for thrush for about 3 days but continues to complain of dryness of his mouth and difficulty swallowing. In the office he was confused, tachycardic, with poor air movement on his right side and was admitted for probable pneumonia, advancing metastatic cancer, dehydration and consult for palliative care. [facility] History I have reviewed the patient's past medical history: Yes Medical History: Reports:: Arrhythmia, Atrial Fibrillation, Cancer, Chronic Obstructive Pulmonary Disease (COPD), Gastroesophageal Reflux Disease(GERD), Kidney Stones Denies:: Diabetes Mellitus Type 1, Diabetes Mellitus Type 2, Internal Pacemaker, MRSA, Seizures *Have you ever received a pneumonia vaccine?: Yes *Have you received a flu vaccine this season?: Yes Other Medical History: Reports: Arthritis, Chemotherapy, Sinus Problems, Thyroid Disease. Denies: Blood Transfusion Reaction Laterality Cases: Right: Carpal Tunnel Release, Bilateral: Arthroscopy Knee, Arthroscopy Shoulder Other Surgeries: Yes: Appendectomy, Cardiac Catheterization, Colonoscopy, Other (Lumbar fusion, multiple back sx, Right CTR, ). No: Pacemaker Amputation: No Fractures: No - *Social History Smoking Status: Current some day smoker Tobacco Type: cigarettes # Packs/Day (cigarettes): 1 #Yrs smoked (if former smoker): 50 Alcohol Intake: never Alcohol Intake Frequency:: other Substance Use Type: denies use *Occupational Status:: disabled Housing: house Household Members: significant other *Travel in the last 8 weeks: None Family Hx:: Diabetes, Stroke Review of Systems - Review of Systems Review of systems:: pertinent systems reviewed and negative unless documented below - Constitutional Reports anorexia, Reports fatigue, Reports weakness, Denies fever(s) - ENT Reports change in voice, Reports poor balance, Reports dry mouth, Reports difficulty swallowing, Reports mouth lesions, Denies headache(s) - *Cardiovascular Reports shortness of breath with activity, Denies foot swelling - *Respiratory Reports change in phlegm color, Reports cough, Reports coughing up blood - *Gastrointestinal Denies abdominal pain, Denies loose stools, Denies vomiting - *Genitourinary Denies difficulty urinating - *Musculoskeletal Reports abnormal walking, Reports back pain, Reports muscle weakness - Integumentary/Breasts Denies rash - *Neurologic Reports confusion Meds Home Medications Medication Instructions Recorded Confirmed Type Aspirin [Aspir 81] 81 mg PO DAILY 12/30/18 08/26/20 History dilTIAZem HCL [Cardizem 180mg ER 180 mg PO DAILY 12/30/18 08/26/20 History capsule] ondansetron HCl 8 mg tablet 8 mg PO TIDP PRN tab 09/22/19 08/26/20 History prochlorperazine maleate 10 mg 10 mg PO Q4HP PRN tab 09/22/19 08/26/20 History tablet duloxetine 30 mg capsule,delayed 30 mg PO DAILY 02/08/20 08/26/20 History release sprinkle Chlorpromazine HCl [Thorazine 1
[2020-08-26 17:12] LABS: Eosinophils % 1 % (0-3); Lymphocytes % 9 % (10-50); Monocytes % 7 % (2-9); Neutrophils % 83 % (42-76); Platelet Estimate Normal; RBC Morphology Normal; Total Cells Counted 100
[2020-08-26 18:20] VITALS: PULSE 69; O2SAT 95
[2020-08-26 20:00] VITALS: BP 94/56; PULSE 84; RESP 16; RESP 18; TEMP 37.2; O2SAT 94; O2SAT 97
[2020-08-27] VITALS (7 sets, daily range): BP systolic 88–129; BP diastolic 49–87; PULSE 65–93; RESP 16–19; TEMP 36.6–36.8; O2SAT 93–98; BMI 23.8
--- NOTE | 2020-08-27 06:54 | HMH.DCSUM ---
General - General Admission date:: 08/26/20 Discharge date: 08/27/20 HPI HPI: 65 yr old male with metastatic lung cancer presents to our office today with complaints of worsening confusion, global weakness, difficulty swallowing and coughing. 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 Lung cancer diagnosed in 2019 after developing malignant pleural effusion. Is following here with Dr River and about 10 days ago was noted to have brain metastases and last week underwent radiation therapy in [place]. He has bony metastases as well and his pain has been increasing significantly over the past couple of weeks. Currently taking oxycodone 5mg two tablets every 4-6 hours which is really not relieving his pain. Has also been on treatment for thrush for about 3 days but continues to complain of dryness of his mouth and difficulty swallowing. In the office he was confused, tachycardic, with poor air movement on his right side and was admitted for probable pneumonia, advancing metastatic cancer, dehydration and consult for palliative care. Hospital Course Hospital Course: 65-year-old gentleman with widely metastatic lung cancer, numerous metastases to the brain. Curative measures no longer an option. Palliative therapy/treatment of cancer no longer an option either. At this time, symptom control and quality of life are the goals of care for patient. He and his POA concur with this approach. Pain difficult to control. Admitted to optimize pain control, and for hospice referral. Initiated on fentanyl patch with some improvement. Still requiring oral meds for breakthrough. Increase to 75 mcg patch for discharge and continue treatment. Hospice consulted, patient stable for discharge home with continued care by hospice. Of note, plan to complete empiric course of antibiotics for respiratory infection. Objective Vital signs: Temp Pulse Resp BP Pulse Ox 98.0 F 92 H 16 103/87 L 93 L 08/27/20 04:00 08/27/20 05:30 08/27/20 04:00 08/27/20 04:00 08/27/20 05:30 Narrative: - Constitutional Minimal distress, thin, chronically ill appearing, cooperative - *Routine HEENT Exam Head: Present: normocephalic Eye: Present: conjunctivae pink ENT: Present: mucous membranes dry, other (dentures. white plaques bilateral buccal mucosa) - *Routine Neck Exam Present: supple, trachea midline. Absent: tenderness - *Routine Respiratory Exam Present: decreased breath sounds (right side). Absent: accessory muscle use, stridor - *Routine Cardiovascular Exam Present: tachycardia, irregular rhythm. Absent: murmur - *Routine Abdominal Exam Present: soft, normoactive bowel sounds. Absent: tenderness - *Routine Extremities Exam Present: pulses intact. Absent: clubbing, edema - *Routine Skin Exam Present: intact, warm. Absent: rash - *Routine Neurological Exam Present: alert, moving all extremities, normal speech (global weakness, delayed verbal response but appropriate responses, seated upright in bed) Results Labs on day of discharge: Labs from last 24 hours 08/26/20 08/26/20 08/26/20 12:29 12:29 12:29 WBC 25.0 H* RBC 4.80 Hgb 15.5 Hct 47.7 MCV 99.4 H MCH 32.4 H MCHC 32.6 RDW 14.6 Plt Count 198 MPV 10.1 Neut % (Auto) 85.4 H Lymph % (Auto) 9.2 L Thomas % (Auto) 4.5 Eos % (Auto) 0.2 Baso % (Auto) 0.8 Neut # (Auto) 21.3 H Lymph # (Auto) 2.3 Thomas # (Auto) 1.1 H Eos # (Auto) 0.0 Baso # (Auto) 0.2 Total Counted 100 Neutrophils % (Manual) 83 H Lymphocytes % (Manual) 9 L Monocytes % (Manual) 7 Eosinophils % (Manual) 1 Platelet Estimate Normal RBC Morpholo
--- NOTE | 2020-08-27 07:23 | PC.NURSE ---
shift summary pts lung sounds are clear but slightly diminished, pts sats maintained above 88% with a rate ranging 20-26. pt uses his bedside urinal, urine is clear and yellow in color.
[2020-08-27 09:20] LABS: Chloride 101 mmol/L (98-107); Potassium 4.2 mmoL/L (3.5-5.1); Sodium 131 mmol/L (136-145)
[2020-08-27 09:21] LABS: Basophils % 0.3 % (0.1-2.0); Hematocrit 38.8 % (42.0-52.0); Lymphocytes # 0.8 K/mm3 (0.7-4.5); Lymphocytes % 5.9 % (10-50); Mean Corpuscular HGB Conc 32.5 g/dL (31.8-35.4); Mean Corpuscular Hemoglobin 32.2 pg (27.0-31.2); Mean Corpuscular Volume 99.3 fl (80-94); Mean Platelet Volume 10.3 fl (7.4-10.4); Monocytes # 0.6 K/mm3 (0.1-1.0); Monocytes % 4.8 % (1.7-9.3); Neutrophils # 11.7 K/mm3 (1.8-7.8); Platelet Count 158 K/mm3 (142-424); Red Blood Count 3.91 M/mm3 (4.60-6.20); Red Cell Distribution Width 14.8 % (11.5-17.5); White Blood Count 13.1 K/mm3 (4.8-10.8)
[2020-08-27 09:23] LABS: Blood Urea Nitrogen 38 mg/dl (9-20); Creatinine Clearance Estimated 82 mL/min (50-200); Estimated Glomerular Filt Rate 97 ml/min (>60); GFR (African American) 117 ML/MIN (>60)
[2020-08-27 09:24] LABS: Anion Gap 10.2 mEq/L (5-15); Calcium 8.2 mg/dl (8.4-10.2); Carbon Dioxide 24 mmol/L (22.0-30.0); Glucose 268 mg/dl (74-100)
[2020-08-27 09:26] LABS: Hemoglobin 12.6 g/dL (14.1-18.0); MANUAL DIFFERENTIAL MANUAL DIFFERENTIAL (MANUAL DIFF)
--- NOTE | 2020-08-27 11:05 | HMH.PHAINT ---
MEDICATION RECONCILIATION COMPLETED ON PATIENT USING EXTERNAL FILL HISTORY FROM PHARMACY AND LIST FROM MD OFFICE. -RG CALZADAD
--- NOTE | 2020-08-27 11:35 | SW/DCPLANNER ---
Addendum entered by Bridget Marrufo 08/27/20 15:03: IVETTE MULLINS RN IS HERE TO EVALUATE MR AUGUSTE... HE IS GOING TO DISCHARGE HOME LATER THIS AFTERNOON ... HIS SIGNIFICANT OTHER WILL BE TAKING HIM HOME. I HAVE ORDERED A HOSPITAL BED, BEDSIDE TABLE, 02 AND OVER THE BED TABLE... HIS MEDS WILL BE SENT TO CLINIC PHARMACY AND WILL BE SENT PRIOR TO HIM DISCHARGING...PATIENT WILL BE FOLLOWED FOR END OF LIFE/PALLIATIVE CARE.... Addendum entered by Bridget Marrufo 08/27/20 12:46: HOSPICE WILL BE HERE AT 1:00 TODAY TO SPEAK WITH PATIENT AND SIGNIFICANT OTHER....ONCE A PLAN IS ESTABLISHED HE WILL BE READY FOR A DISPOSITION... Original Note: RECEIVED A REFERRAL FOR A HOSPICE CONSULT FOR THIS PATIENT: I HAD A CONVERSATION WITH PATIENTS SIGNIFICANT OTHER... SHE HAS REQUESTED TO TAKE HIM HOME WITH HOSPICE... I NOTIFIED HOSPICE OF THE REFERRAL AND HAVE ASKED FOR SOMEONE TO COME UP AND SPEAK WITH PATIENT AND SIGNIFICANT OTHER ABOUT THEIR SERVICES AND HOPEFUL TO GET HIM HOME LATER IN THE AFTERNOON OR IN THE AM...
[2020-08-27 11:51] LABS: Lymphocytes % 8 % (10-50); Monocytes % 2 % (2-9); Neutrophils % 90 % (42-76); Total Cells Counted 100
[2020-08-27 11:52] LABS: Platelet Estimate Normal; RBC Morphology Normal
--- NOTE | 2020-08-27 13:57 | ECG_ITS ---
APPROVED REPORT Exam: Resting ECG HR:137 bpm ECG Measurements Heart Rate 137 AXES QRSd 72 QRS 51 QT 300 T 252 QTc 453 Conclusion Atrial fibrillation with rapid ventricular response Nonspecific T wave abnormality, probably digitalis effect Abnormal ECG Electronically signed by : Cory Dykes, 08/28/2020 05:56:40
--- NOTE | 2020-08-27 14:22 | PC.NURSE ---
Patient hr was elevated, stat ekg ordered which showed afib with rvr. Patient has hx of afib and is on daily cardizem. Dr. Carmona notified, 5mg po metoprolol ordered as a 1 time does. Patients blood pressure is currently 100/60. renotified about pressure. Advised to give to improve pressure and heartrate. Will continue to monitor
== END 2020-08-27 17:19 | disposition hospice, home (50) | DRG 180 ==
PROVIDERS: Nurse Practitioner Family; Admitting Provider Internal Medicine Adolescent Medicine; PCP Internal Medicine Adolescent Medicine; Visit Provider Internal Medicine Adolescent Medicine
DX: C34.11 Malignant neoplasm of upper lobe, right bronchus or lung (principal); J18.9 Pneumonia, unspecified organism; I48.20 Chronic atrial fibrillation, unspecified; B37.0 Candidal stomatitis; J91.0 Malignant pleural effusion; C79.51 Secondary malignant neoplasm of bone; C79.31 Secondary malignant neoplasm of brain; C79.89 Secondary malignant neoplasm of other specified sites; G89.3 Neoplasm related pain (acute) (chronic); E86.0 Dehydration; J44.9 Chronic obstructive pulmonary disease, unspecified; Z72.0 Tobacco use; R13.10 Dysphagia, unspecified
CPT/HCPCS: 71045; 80048; 80053; 83735; 85007; 85025; 86328; 87040; 87070; 87077; 87186; 87205; 93005; 94640; J1642; J1956